=== PATIENT | male | born 1980 ===

== ENCOUNTER 2020-10-31 09:33 | Outpatient (REF) | payer OTHER, SELFPAY ==
[2020-10-31 10:50] LABS: Estimated Average Glucose 108 mg/dL; Hemoglobin A1c % 5.4 %
[2020-10-31 10:54] LABS: Alanine Aminotransferase 23 U/L (0-40); Albumin Level 4.3 g/dL (3.5-5.0); Alkaline Phosphatase 60 U/L (39-117); Anion Gap 8 (12-20); Aspartate Amino Transferase 17 U/L (5-37); Bilirubin Total 0.6 mg/dL (0.0-1.0); Blood Urea Nitrogen 15 mg/dL (9-16); Calcium 9.3 mg/dL (8.4-10.2); Carbon Dioxide 30 mmol/L (22-29); Chloride 108 mmol/L (96-108); Cholesterol 168 mg/dL; Estimated Glomerular Filt Rate > 60; Glucose Fasting 87 mg/dL (60-99); HDL Cholesterol 48 mg/dL; LDL Cholesterol Calculated 110 mg/dl; Potassium 4.3 mmol/L (3.3-5.1); Sodium 142 mmol/L (135-145); Total Protein 6.5 g/dL (6.5-8.0); Triglycerides 54 mg/dL
[2020-10-31 11:16] LABS: TSH reflex Free T4 0.67 uIU/mL (0.32-4.0); Vitamin D 25-OH Total 24.2 ng/mL (>30)
== END 2020-10-31 09:34 | disposition home or self-care (01) ==
LOC: HO.LAB 09:33
PROVIDERS: PCP Physician Assistant; Visit Provider Physician Assistant
DX: Z13.220 Encounter for screening for lipoid disorders (principal); Z13.29 Encounter for screening for other suspected endocrine disorder; E55.9 Vitamin D deficiency, unspecified
CPT/HCPCS: 36415; 80053; 80061; 82306; 83036; 84443

== ENCOUNTER 2021-11-05 08:41 | Outpatient (REF) | payer OTHER, SELFPAY ==
[2021-11-05 09:13] LABS: Hematocrit 41.6 % (42.0-52.0); Hemoglobin 13.3 g/dl (14.0-18.0); Mean Corpuscular Hemoglobin 24.2 pg (27.0-33.0); Mean Corpuscular Volume 75.8 fL (80.0-98.0); Mean Platelet Volume 9.2 fL (9.4-12.4); Platelet Count 269 X10*3/uL (160-400); Red Blood Count 5.49 X10*6/uL (4.60-5.80); Red Cell Distribution Width 14.6 % (11.0-16.0)
[2021-11-05 09:40] LABS: Alanine Aminotransferase 24 U/L (0-40); Albumin Level 4.3 g/dL (3.5-5.0); Alkaline Phosphatase 65 U/L (39-117); Anion Gap 13 (12-20); Aspartate Amino Transferase 20 U/L (5-37); Bilirubin Total 0.4 mg/dL (0.0-1.0); Blood Urea Nitrogen 16 mg/dL (9-16); Calcium 9.2 mg/dL (8.4-10.2); Carbon Dioxide 29 mmol/L (22-29); Chloride 105 mmol/L (96-108); Cholesterol 167 mg/dL; Estimated Glomerular Filt Rate > 60; Glucose Fasting 88 mg/dL (60-99); HDL Cholesterol 54 mg/dL; LDL Cholesterol Calculated 101 mg/dl; Potassium 4.7 mmol/L (3.3-5.1); Sodium 142 mmol/L (135-145); Total Protein 6.6 g/dL (6.5-8.0); Triglycerides 62 mg/dL
[2021-11-05 10:03] LABS: TSH reflex Free T4 0.55 uIU/mL (0.32-4.0)
== END 2021-11-05 08:42 | disposition home or self-care (01) ==
LOC: HO.LAB 08:41
PROVIDERS: PCP Physician Assistant; Visit Provider Physician Assistant
DX: Z13.220 Encounter for screening for lipoid disorders (principal); Z13.29 Encounter for screening for other suspected endocrine disorder
CPT/HCPCS: 36415; 80053; 80061; 84443; 85027

== ENCOUNTER 2023-03-10 07:50 | Outpatient (AMB) | payer OTHER, SELFPAY ==
[2023-03-10 07:58] VITALS: BP 130/78; PULSE 64; O2SAT 98; BMI 26.8
--- NOTE | 2023-03-10 07:58 | A.OFFPC_ITS ---
Vital Signs 03/10/23 07:58 Height 5 ft 11 in Weight 192 lb BMI 26.8 BP 130/78 Blood Pressure Location Lt brachial Position Sitting Pulse 64 Pulse Source Pulse Oximeter Pulse Oximetry (%) 98 Oxygen Delivery Method Room Air Intake Visit Reasons: Annual Exam, Chest Pain, PT lower pain back , feet swelling, right knee pain Allergies No Known Allergies [No Known Allergies*] Allergy (Verified 03/10/23 08:07) N.K.D.A. Allergy (Unknown, Uncoded 03/10/23 07:58) Unknown Medication List - Last Reconciled 03/10/23 by Dean Willis PA-C cetirizine 10 mg PO DAILY 60 days clonidine HCl 0.1 mg PO DAILY cyclobenzaprine 5 mg PO Q12H PRN ferrous gluconate 236 mg PO 3XW 4 weeks naproxen 250 mg PO BID tramadol 50 mg PO DAILY 7 days Tobacco use date assessed: 03/10/23 Dental Screening Dental Screen Date: 03/10/23 Did you have a dental visit in the last 12 months?: Yes Did you have a dental problem in the last 6 months where you did not have access to dental care?: No Was dental information given to patient?: Patient has dentist HPI Annual Exam HPI Details Patient is a 42-year-old male here today for annual physical. Patient has a past medical history significant for generalized anxiety disorder, nephrolithiasis. Concerns---> reports having chest pain as of late related to stress. Chest pains only last for a few minutes and then relief. Denies any chest pain shortness for breath on exertion.. He does report having elevated blood pressure readings as of late and has restarted taking clonidine which has helped though does not. Like side effect of the medication. PLAN: Will start low-dose lisinopril for better blood pressure control FERN:? Has been using Clonidine 0.1 mg on a p.r.n. basis with good effect of reducing his anxiety.? City is triggered by family issues.. He is interested in cognitive behavioral therapy . Lumbar disc disease: He is status post lumbar disc surgery in 2006. He co ntinues to have lower lumbar spine pain to which he uses tramadol and or cyclobenzaprine on an as needed basis. .. Renal colic:? He reports passing a kidney stone in his flank pain has resolved Colonoscopy:? Done March 2020 polyp found ( Tubular adenoma) Repeat 5 years. - family history of Colon cancer. Vaccines:? Up-to-date with COVID vaccine, up-to-date with tetanus vaccine?, con sidering flu vaccine. [facility] Surgical History (Updated 03/10/23 @ 08:20 by Dean Willis PA-C) History of lumbar surgery Family History (Updated 03/10/23 @ 08:11 by Dean Willis PA-C) Father Colon cancer, Onset Age: 47 CAD (coronary artery disease), Onset Age: 55 Mother Ovarian cancer Social History (Updated 03/10/23 @ 08:12 by Dean Willis PA-C) Housing: House Alcohol intake: current Patient Tobacco Use Status: Never used Tobacco e-Cigarette/Vaping Use: Never Used Second Hand Smoke Exposure: No service: No Current occupational status: employed Current occupation: [employer] Current occupational exposures/hazards: No Cognitive needs: No Hearing needs: No Vision needs: No Questionnaire PHQ-9 Over the last 2 weeks, how often have you been bothered by any of the following problems? 1. Little interest or pleasure in doing things: not at all 2. Feeling down, depressed, or hopeless: not at all 3. Trouble falling or staying asleep, or sleeping too much: not at all 4. Feeling tired or having little energy: not at all 5. Poor appetite or overeating: not at all 6. Feeling bad about yourself - or that you are a failure or have let yourself or your family down: not at all 7. Trouble concentrating on things, such as reading the newspaper or watching television: not at all 8. Moving or speaking so slowly that other people could have noticed. Or the opposite - being so fidgety or restless that you have been moving around a lot more than usual: not at all 9. Thoughts that you would be better off or of hurting yourself in some way: not at all Total score: 0 Depression Screening Interpretation: Negative Depression Screening Done: Yes Source: Developed by Drs. Alejandro Joseph, Krystina Askew, Lopez Ellison and colleagues, with an educational jose from [employer]. Thrive Questionnaire Date Thrive assessed: 03/10/23 I am a: Patient What is your living situation today?: I have a steady place to live Within the past 12 months, did the food you bought not last and you didn't have the money to get more?: Never true Within the past 12 months, did you worry whether your food would run out before you got money to buy more?: Never true Do you have trouble paying for medicines?: No Do you have trouble getting transportation to medical appointments?: No Do you have trouble paying your heating and electricity bill?: No Do you have trouble taking care of your child, family member or friend?: No Do you have trouble with day-to-day activities such as bathing, preparing meals, shopping, managing finances, etc.?: No Are you currently unemployed and looking for a job?: No Are you interested in more education?: No Currently or been in a relationship where the following occur: no concerns reported THRIVE Score: 0 AUDIT C Alcohol Use Questionnaire (AUDIT-C) 1. How often do you have a drink containing alcohol?: 2-4 times a month 2. How many drinks containing alcohol do you have on a typical day when you are drinking?: 3 or 4 3. How often do you have six or more drinks on one occasion?: Never Total Score: 3 FERN-7 AMB Questionnaire FERN-7 Date FERN - 7 assessed: 03/10/23 Feeling nervous, anxious, or on edge: 0 = Not at all Not being able to stop or control worryin = Not at all Worrying too much about different things: 0 = Not at all Trouble relaxin = Not at all Being so restless that it is hard to sit still: 0 = Not at all Becoming easily annoyed or irritable: 0 = Not at all Feeling afraid as if something awful might happen: 0 = Not at all Total FERN-7 score (0-4 normal; 5-9 mild; 10-14 moderate; 15-21 severe): 0 Source: Developed by Drs. Alejandro Joseph, Krystina Askew, Lopez Ellison and colleagues, with an educational jose from [employer]. FERN-7 Assessment Billing FERN-7 Assessment Tool: FERN-7 Assessment 94219 Review of Systems Const Denies body aches, Denies chills, Denies excessive sweating, Denies fatigue, Denies fever(s) and Denies headache(s) Eyes Denies blurry vision ENT Denies dysphagia, Denies vertigo, Denies dizziness, Denies headache(s), Denies hearing loss and Denies tinnitus Card Denies chest pain, Denies chest pain with activity, Denies syncope, Denies irregular heart rhythm and Denies dyspnea Resp Denies chest congestion, Denies cough, Denies hemoptysis, Denies dyspnea and Denies wheezing GI Denies abdominal pain, Denies melena, Denies hematochezia, Denies coffee ground emesis, Denies dysphagia, Denies diarrhea, Denies nausea and Denies vomiting Denies difficulty urinating, Denies dysuria, Denies urinary frequency, Denies urinary hesitancy and Denies urinary urgency Musc Denies arthralgias, Denies limited range of motion, Denies muscle cramps and Denies muscle weakness Skin/Breast Denies rash and Denies skin ulcer Neuro Denies Abnormal speech present, Denies confusion, Denies vertigo, Denies dizziness, Denies syncope, Denies headache(s), Denies memory loss and Denies seizure-like activity Psych Denies anxiety, Denies confusion, Denies depression, Denies memory loss, Denies panic attacks and Denies paranoia Endo Denies excessive sweating, Denies fatigue, Denies flushing, Denies polydipsia and Denies polyuria Aller/Immun Denies wheezing Physical exam (Primary Care) Vital Signs: Last Vital Signs Pulse 64 03/10/23 07:58 BP 130/78 03/10/23 07:58 Pulse Ox 98 03/10/23 07:58 Oxygen Delivery Method Room Air 03/10/23 07:58 BMI result Body Mass Index 26.8 Tobacco/Smoking Status: Tobacco use Status Tobacco use date assessed 03/10/23 03/10/23 08:04 Patient Tobacco Use Status Never used Tobacco 03/10/23 08:12 e-Cigarette/Vaping Use Never Used 03/10/23 08:12 PHQ-9: PHQ-9 Score PHQ-9: Total score 0 03/10/23 08:17 Depression Screening Interpretation: Negative Thrive Assessment: Date of Thrive Assessment Date Thrive assessed 03/10/23 03/10/23 08:04 Currently or been in a relationship where the following occur: no concerns reported Const General: cooperative, comfortable, no acute distress, alert and awake; No confusion Orientation/consciousness: oriented to person, oriented to place, patient oriented x3 and No confusion HENMT Head: Yes normocephalic Ears: external ears normal and TM's normal bilaterally Face and sinus: No sinus tenderness Mouth: Normal oral and palatal mucosa present and tongue normal Teeth and gingiva: dentition normal and gingiva normal Throat: Yes posterior oropharynx normal, Yes tonsils normal and Yes uvula midline Eyes Conjunctivae: conjunctivae normal Sclerae: sclerae normal Pupils: Equal, round and reactive pupils present EOM: EOMs intact bilaterally Direct Ophthalmoscopy: No no photophobia Neck Neck: Yes no lymphadenopathy, No tender and Yes no JVD Thyroid: Thyroid normal Carotids: no bruits Chest Chest palpation & inspection: no tenderness Resp Effort & Inspection: normal respiratory effort, no audible wheezes, not labored and no stridor Auscultation: no crackles, no rales, no rhonchi and no wheezes Cardio Jugular venous distension: no JVD Rate: regular rate, not bradycardic and not tachycardic Rhythm: regular rhythm Bruits: no carotid bruits Peripheral pulses: Peripheral pulses 2+ throughout GI Inspection: Yes normal to inspection, No abdominal wall ecchymosis and No visible herniation Palpation (GI): Soft to palpation, nontender, no guarding, not rigid and No hepatosplenomegaly present Auscultation: normoactive bowel sounds General: Yes no CVA tenderness Back/Spine/Pelvis Back: no CVA tenderness and No back tenderness Cervical Spine: cervical ROM normal Thoracic/Lumbar Spine: thoracic and lumbar spine normal to inspection, straight leg raise negative bilaterally, No thoraco-lumbar ROM limited and No lumbar spinal tenderness Skin Lesions: no lesions Rashes: no rashes Wounds: no wounds Neuro General: oriented to person, oriented to place, patient oriented x3, CN's II-XI intact bilaterally and No confusion Cranial nerves: Yes Equal, round and reactive pupils present and Yes Normal accommodation reflex present Cognition (Neuro): normal cognition Speech: No Abnormal speech present Gait exam (Neuro): Normal gait present Motor exam (neuro): 5/5 motor strength present throughout Extrem Right upper extremity: full ROM; no cyanosis Left upper extremity: full ROM; no cyanosis Right lower extremity: no edema Left lower extremity: no edema Psych Appearance: grossly normal Mental Status: mental status grossly normal Affect: normal affect Attitude: cooperative Thought process: Normal thought process present Assessment and Plan Assessment & Plan (1) Annual physical exam: Code(s): Z00.00 - Encounter for general adult medical examination without abnormal findings (2) Renal colic: Code(s): N23 - Unspecified renal colic Plan: Has essentially resolved. He did report passing a kidney stone recently (3) FERN (generalized anxiety disorder): Code(s): F41.1 - Generalized anxiety disorder Plan: He does report his anxiety is at times not controlled. He does report his trigger to his anxiety is family issues. Has been using clonidine as of late. He is interested in starting mental health therapy. (4) GERD (gastroesophageal reflux disease): Code(s): K21.9 - Gastro-esophageal reflux disease without esophagitis Qualifiers: Esophagitis presence: without esophagitis Qualified Code(s): K21.9 - Gastro-esophageal reflux disease without esophagitis Plan: His GERD symptoms have been well managed with lifestyle modification. Does not use any PPI therapy at this time. (5) Lumbar spine pain: Code(s): M54.5 - Low back pain Plan: Has a history of lumbar disc disease and had surgery in 2006 to repair disc. He continues with chronic lower lumbar spine pain he is usually able to manage though reports as of late more lower lumbar spine pain. He is interested in starting physical therapy and getting a repeat x-ray. Will consider getting MRI if he continues to decline (6) HTN (hypertension): Code(s): I10 - Essential (primary) hypertension Qualifiers: Hypertension type: primary hypertension Qualified Code(s): I10 - Essential (primary) hypertension Plan: Blood pressure borderline high today in office. Will start lisinopril 5 mg for better blood pressure control. It seems that his blood pressure elevations are related to anxiety. Advised to monitor blood pressure at home with goal blood pressure to be below 140/90 (7) Right anterior knee pain: Code(s): M25.561 - Pain in right knee Plan: He does report having right anterior knee pain worse when going up or downstairs . Likely patellofemoral syndrome. Advised on anti-inflammatory use and cool compress. (8) Chest pain: Code(s): R07.9 - Chest pain, unspecified Qualifiers: Chest pain type: precordial pain Qualified Code(s): R07.2 - Precordial pain Plan: Will get EKG Orders: Orders PT Evaluation and Treatment Today M51.9 - Unspecified thoracic, thoracolumbar and lumbosacral intervertebral disc disorder, M54.5 - Low back pain Comprehensive [place]. Panel Fast Today Z13.1 - Encounter for screening for diabetes mellitus Complete Blood Count no Diff Today D64.9 - Anemia, unspecified XR knee RT 3V Today M25.561 - Pain in right knee XR lumbar spine 2-3V Today M54.5 - Low back pain Microalbumin, Random (w Creat) Today I10 - Essential (primary) hypertension ECG 12 lead EKG Today R07.2 - Precordial pain Referrals Counseling Referral F41.1 - Generalized anxiety disorder Medications: New lisinopril 5 mg PO DAILY 30 days 30 tabs 1RF I10 - Essential (primary) hypertension Refilled tramadol 50 mg PO DAILY 7 days 7 tabs 0RF N23 - Unspecified renal colic cyclobenzaprine 5 mg PO Q12H PRN 10 tabs 0RF muscle spasm M54.5 - Low back pain naproxen 250 mg PO BID 30 tabs 3RF Coding Level of Care Code Est Pt Prev Care 40-64y(42320) Diagnoses Annual physical exam Z00.00 Renal colic N23 FERN (generalized anxiety disorder) F41.1 Gastroesophageal reflux disease without esophagitis K21.9 Esophagitis presence: without esophagitis Lumbar spine pain M54.5 Primary hypertension I10 Hypertension type: primary hypertension Right anterior knee pain M25.561 Precordial pain R07.2 Chest pain type: precordial pain Additional Codes FERN-7 Assessment Billing - FERN-7 Assessment Tool: FERN-7 Assessment [id number] ([id number])
== END 2023-03-10 08:39 | disposition home or self-care (01) ==
PROVIDERS: PCP Physician Assistant; Visit Provider Physician Assistant
DX: Z00.00 Encounter for general adult medical examination without abnormal findings (principal); N23 Unspecified renal colic; F41.1 Generalized anxiety disorder; K21.9 Gastro-esophageal reflux disease without esophagitis; M54.50 Low back pain, unspecified; I10 Essential (primary) hypertension; M25.561 Pain in right knee; R07.2 Precordial pain
CPT/HCPCS: 99396

== ENCOUNTER 2023-03-10 08:43 | Outpatient (REF) | payer OTHER, SELFPAY ==
--- NOTE | ~2023-03-10 | XR_ITS ---
EXAMINATION: XR LUMBAR SPINE XR KNEE, RIGHT CLINICAL INFORMATION: Pain in right knee, low back pain. COMPARISON: None available. TECHNIQUE: 3 views of the lumbar spine. 3 views of the right knee. FINDINGS: Right knee: No significant joint effusion. Mild medial joint space narrowing. Tiny tricompartmental osteophytes. Lumbar spine: Straightening of the normal lumbar lordosis. Multiple rounded pelvic calcifications are likely vascular. Advanced facet arthritis at L4-L5 and L5-S1. Multilevel lumbar spondylosis with moderate loss of disc space height at L4-L5. Grade 1 retrolisthesis of L4 on L5. Advanced degenerative changes with marked loss of disc space height at L5-S1 and abundant subchondral sclerosis. Small multilevel superior and inferior endplate concavities in scattered lumbar vertebral bodies, characteristic of Schmorl's nodes. Mild anterior loss of height of L2 vertebral body of indeterminate age and etiology. XR/XR lumbar spine 2-3V IMPRESSION: 1. Mild degenerative changes in the right knee. 2. Multilevel degenerative changes in the lumbar spine most notable at L4-L5 and L5-S1. 3. Advanced facet arthritis at L4-L5 and L5-S1. Mild anterior loss of height of L2 vertebral body of indeterminate age and etiology. Correlation with clinical history as well as direct correlation with prior images is recommended and if prior images are provided, an addendum will be dictated.
--- NOTE | ~2023-03-10 | XR_ITS ---
EXAMINATION: XR LUMBAR SPINE XR KNEE, RIGHT CLINICAL INFORMATION: Pain in right knee, low back pain. COMPARISON: None available. TECHNIQUE: 3 views of the lumbar spine. 3 views of the right knee. FINDINGS: Right knee: No significant joint effusion. Mild medial joint space narrowing. Tiny tricompartmental osteophytes. Lumbar spine: Straightening of the normal lumbar lordosis. Multiple rounded pelvic calcifications are likely vascular. Advanced facet arthritis at L4-L5 and L5-S1. Multilevel lumbar spondylosis with moderate loss of disc space height at L4-L5. Grade 1 retrolisthesis of L4 on L5. Advanced degenerative changes with marked loss of disc space height at L5-S1 and abundant subchondral sclerosis. Small multilevel superior and inferior endplate concavities in scattered lumbar vertebral bodies, characteristic of Schmorl's nodes. Mild anterior loss of height of L2 vertebral body of indeterminate age and etiology. XR/XR knee RT 3V IMPRESSION: 1. Mild degenerative changes in the right knee. 2. Multilevel degenerative changes in the lumbar spine most notable at L4-L5 and L5-S1. 3. Advanced facet arthritis at L4-L5 and L5-S1. Mild anterior loss of height of L2 vertebral body of indeterminate age and etiology. Correlation with clinical history as well as direct correlation with prior images is recommended and if prior images are provided, an addendum will be dictated.
--- NOTE | 2023-03-10 08:50 | ECG_ITS ---
Test Reason : pre cordial pain Blood Pressure : / mmHG Vent. Rate : 061 BPM Atrial Rate : 061 BPM P-R Int : 136 ms QRS Dur : 088 ms QT Int : 394 ms P-R-T Axes : 035 058 034 degrees QTc Int : 396 ms Normal sinus rhythm Normal ECG When compared with ECG of 07-MAR-2015 12:58, Sinus rhythm has replaced Ectopic atrial rhythm Referred By: Dean Willis Electronically Signed By:JAMAAL MCCOLLUM MD
[2023-03-10 09:50] LABS: Hematocrit 42.3 % (42.0-52.0); Hemoglobin 13.5 g/dl (14.0-18.0); Mean Corpuscular HGB Conc 31.9 g/dl (31.0-36.0); Mean Corpuscular Hemoglobin 24.2 pg (27.0-33.0); Mean Corpuscular Volume 75.9 fL (80.0-98.0); Mean Platelet Volume 9.9 fL (9.4-12.4); Platelet Count 292 X10*3/uL (160-400); Red Blood Count 5.57 X10*6/uL (4.60-5.80); Red Cell Distribution Width 14.8 % (11.0-16.0); White Blood Count 6.1 X10*3/uL (4.8-10.8)
[2023-03-10 10:15] LABS: Alanine Aminotransferase 30 U/L (0-40); Albumin Level 4.4 g/dL (3.5-5.0); Alkaline Phosphatase 64 U/L (39-117); Anion Gap 13 (12-20); Aspartate Amino Transferase 22 U/L (5-37); Bilirubin Total 0.3 mg/dL (0.0-1.0); Blood Urea Nitrogen 16 mg/dL (9-16); Calcium 9.5 mg/dL (8.4-10.2); Carbon Dioxide 30 mmol/L (22-29); Chloride 104 mmol/L (96-108); Estimated Glomerular Filt Rate > 60; Glucose Fasting 93 mg/dL (60-99); Potassium 4.2 mmol/L (3.3-5.1); Sodium 143 mmol/L (135-145)
== END 2023-03-10 08:44 | disposition home or self-care (01) ==
LOC: HO.LAB 08:43
PROVIDERS: PCP Physician Assistant; Visit Provider Physician Assistant
DX: Z13.1 Encounter for screening for diabetes mellitus (principal); R07.2 Precordial pain; D64.9 Anemia, unspecified; M25.561 Pain in right knee; M54.50 Low back pain, unspecified
CPT/HCPCS: 36415; 72100; 73562; 80053; 85027; 93005

== ENCOUNTER → 2023-03-10 08:50 | Outpatient (BNV) | payer OTHER, SELFPAY | PROVIDERS: PCP Physician Assistant; Visit Provider Internal Medicine Cardiovascular Disease | DX: R07.2 Precordial pain (principal) | CPT/HCPCS: 93010 ==

== ENCOUNTER 2023-04-02 08:22 | Outpatient (AMB) | payer OTHER, SELFPAY ==
--- NOTE | 2023-04-02 08:36 | A.OFFVIS_ITS ---
Intake Vital Signs 04/02/23 08:37 Height 5 ft 8 in Weight 188 lb 8 oz BMI 28.7 BP 137/75 Blood Pressure Location Lt brachial Position Sitting Respiration 18 Pulse 69 Pulse Source Pulse Oximeter Pulse Oximetry (%) 100 Oxygen Delivery Method Room Air Intake Visit Reasons: Low Back Pain, Unspecified - Confirmed Allergies No Known Allergies [No Known Allergies*] Allergy (Verified 04/02/23 08:28) N.K.D.A. Allergy (Unknown, Uncoded 03/10/23 07:58) Unknown HPI HPI Comments History of Present Illness Details Chilo is a very pleasant 42-year-old male who presents the office today for evaluation management of his chronic lower back pain. He has been suffering with this pain for greater than 15 years. Status post partial discectomy in 2006 after he injured his back falling during a recreati onal football game. Prior to that he had been active in basketball and pain was present before the football injury but became significantly worse after the fall. He was evaluated at that time in the emergency room and ultimately underwent surgery. He does endorse burning pain, numbness and tingling down the right leg to include the right foot. Initially it was more in the foot but has been progressively getting worse over the years. He states that this started prior to surgery and persisted after. At one point he was started on Lyrica but had side effects so he stopped taking it. For 2 years after surgery he was seen in pain management and underwent multiple injections but found that they did not provide him benefit so he worked more on lifestyle modifications. Patient denies red flag symptoms including new loss of bowel, bladder or saddle anesthesia. Recent xray, results as per below. He has not had recent MRI, last one was greater than 10 years ago. Pain today is rated as an 8/10, across the lower back and down the right leg. Pain is constant, worse with weather changes and movement. In terms of muscle damage condition is described as pulsing, throbbing, pounding, jumping, flushing, shooting, stabbing, sharp, cutting, tingling, burning, scalding, dull, sore, hurting, aching, heavy, tight, squeezing. Pain is negatively impacting patient's enjoyment of life, ability to perform activities of daily living, ability to function normally. After surgery he completed physical therapy with no improvement of his symptoms. Patient is interested in retrying physical therapy, he was expecting a call after recent PCP visit but states that physical therapy has not reached out to him to schedule appointment. He has been doing home exercise program but reports that the stretching has been getting increasingly more difficult over the last year. Patient has been using [id number] lidocaine patches and nonsteroidal anti- inflammatory medications with some relief. When pain is severe he has tramadol and cyclobenzaprine but uses those very rarely. He has also changed his lifestyle and improved his diet and physical activity but pain persists. [facility] Surgical History (Updated 03/10/23 @ 08:20 by Dean Willis PA-C) History of lumbar surgery Family History (Updated 03/10/23 @ 08:11 by Dean Willis PA-C) Father Colon cancer, Onset Age: 47 CAD (coronary artery disease), Onset Age: 55 Mother Ovarian cancer Social History (Updated 03/10/23 @ 08:12 by Dean Willis PA-C) Housing: House Alcohol intake: current Patient Tobacco Use Status: Never used Tobacco e-Cigarette/Vaping Use: Never Used Second Hand Smoke Exposure: No service: No Current occupational status: employed Current occupation: [employer] Current occupational exposures/hazards: No Cognitive needs: No Hearing needs: No Vision needs: No Review of Systems Const All systems reviewed & are unremarkable except as noted in HPI and below Physical Exam Vital Signs: Last Vital Signs Pulse 69 04/02/23 08:37 Resp 18 04/02/23 08:37 BP 137/75 04/02/23 08:37 Pulse Ox 100 04/02/23 08:37 Oxygen Delivery Method Room Air 04/02/23 08:37 BMI result Body Mass Index 28.7 General: awake, alert, oriented. Answers questions appropriately. Fully engaged in examination. Skin: warm, dry, intact HEENT: Normocephalic. Hearing intact. Cardiac: External chest normal in appearance. Respiratory: No cough, audible wheezing or stridor. Abdomen: without gross distension. MS: No obvious swelling or deformities. Able to transition from sit to stand unassisted. Ambulates with bilaterally normal heel strike and toe off Forward flexion to 60 degrees, extension to 15 degrees. SLR with and without dorsiflexion positive bilaterally. Worse on the right AMARI negative bilaterally Bilateral lower extremity strength 5/5 Nontender over lumbar paraspinal muscles minimally tender over midline lumbar vertebrae Nontender over bilateral PSIS Neurological: Oriented to person, place, time and situation. Thought process intact. No gait abnormalities appreciated. Psychiatric: Appropriate mood and affect. Good judgment and insight. Results Reviewed Results Reviewed: 03/10/23 XR Lumbar Spine Lumbar spine: Straightening of the normal lumbar lordosis. Multiple rounded pelvic calcifications are likely vascular. Advanced facet arthritis at L4-L5 and L5-S1. Multilevel lumbar spondylosis with moderate loss of disc space height at L4-L5. Grade 1 retrolisthesis of L4 on L5. Advanced degenerative changes with marked loss of disc space height at L5-S1 and abundant subchondral sclerosis. Small multilevel superior and inferior endplate concavities in scattered lumbar vertebral bodies, characteristic of Schmorl's nodes. Mild anterior loss of height of L2 vertebral body of indeterminate age and etiology. IMPRESSION: 1. Mild degenerative changes in the right knee. 2. Multilevel degenerative changes in the lumbar spine most notable at L4-L5 and L5-S1. 3. Advanced facet arthritis at L4-L5 and L5-S1. Mild anterior loss of height of L2 vertebral body of indeterminate age and etiology. Correlation with clinical history as well as direct correlation with prior images is recommended and if prior images are provided, an addendum will be dictated. Assessment & Plan Assessment & Plan (1) Neuropathy: Code(s): G62.9 - Polyneuropathy, unspecified (2) Lumbar radiculopathy: Code(s): M54.16 - Radiculopathy, lumbar region (3) Post laminectomy syndrome: Comment: partial discectomy 2006 Code(s): M96.1 - Postlaminectomy syndrome, not elsewhere classified (4) Lumbar facet arthropathy: Code(s): M47.816 - Spondylosis without myelopathy or radiculopathy, lumbar region Marquise Woo is a very pleasant 42-year-old male who presented to the office today for evaluation and management of his chronic lower back pain. History, physical exam and provocative testing consistent with lumbar facet arthropathy and lumbar radiculopathy. EMG ordered for evaluation of his right lower extremity neuropathy MRI lumbar spine ordered further evaluation. Patient with worsening lower back pain, lumbar radiculopathy, post-laminectomy syndrome and reported worsening neuropathy of the right lower extremity. Order placed for PT eval and treat Patient has exhausted conservative therapy including topical lidocaine patches, nonsteroidal anti-inflammatory medications, muscle relaxers, prescription opioids, physical therapy, home exercise program and previous steroid injections. Discussed options for treatment including diagnostic interventional testing, epidural steroid injections, peripheral nerve stimulation with Sprint, RFA and more permanent neuromodulation. Informational pamphlets provided. Patient will follow up here after MRI/EMG. He was given pamphlets for Nevro spinal cord stimulator and Sprint peripheral nerve stimulator. We also discussed radiofrequency ablation. Will formulate treatment plan after review of MRI, he was advised that spinal cord stimulator may be his best option for long-term treatment of his pain and neuropathy but we could trial diagnostic lumbar medial branch blocks followed by Sprint/RFA if he is not ready to commit to more permanent neuromodulation. All questions and concerns have been answered and patient agrees with the plan. Follow up after MRI/EMG, sooner if needed. Orders: Orders NE electromyogram (EMG) Today G62.9 - Polyneuropathy, unspecified PT Evaluation and Treatment Today M47.816 - Spondylosis without myelopathy or radiculopathy, lumbar region, M96.1 - Postlaminectomy syndrome, not elsewhere classified MR lumbar spine wo con Today G62.9 - Polyneuropathy, unspecified, M54.16 - Radiculopathy, lumbar region, M96.1 - Postlaminectomy syndrome, not elsewhere classified Coding Level of Care Code New Pt Level 4 (30474) Diagnoses Neuropathy G62.9 Lumbar radiculopathy M54.16 Post laminectomy syndrome M96.1 Lumbar facet arthropathy M47.816
[2023-04-02 08:37] VITALS: BP 137/75; PULSE 69; RESP 18; O2SAT 100; BMI 28.7
== END 2023-04-02 08:59 | disposition home or self-care (01) ==
PROVIDERS: PCP Physician Assistant; Visit Provider Registered Nurse Emergency
DX: G62.9 Polyneuropathy, unspecified (principal); M54.16 Radiculopathy, lumbar region; M96.1 Postlaminectomy syndrome, not elsewhere classified; M47.816 Spondylosis without myelopathy or radiculopathy, lumbar region
CPT/HCPCS: 99204

== ENCOUNTER → 2023-04-02 08:22 | Outpatient (BNVA) | payer OTHER, SELFPAY | PROVIDERS: PCP Physician Assistant; Visit Provider Registered Nurse Emergency ==

== ENCOUNTER 2023-04-08 16:45 | Outpatient (REF) | payer OTHER, SELFPAY ==
--- NOTE | ~2023-04-08 | XR_ITS ---
EXAMINATION: XR HAND/WRIST, RIGHT CLINICAL INFORMATION: Pain. COMPARISON: None TECHNIQUE: Four views of the right hand and wrist. FINDINGS: Subtle cortical irregularity with vertically oriented lucency along the radial surface of the base of the distal fourth phalanx, suspicious for underlying nondisplaced fracture. Nonaggressive appearing 0.7 cm lucent lesion in the distal phalanx of the second digit, possibly representing a bone cyst/ganglion cyst. Otherwise normal appearance of the bones and soft tissues. No significant degenerative changes. No unexpected radiopaque foreign bodies. XR/XR hand wrist RT IMPRESSION: Suspect nondisplaced fracture of the base of the distal fourth phalanx. Correlate for point tenderness.
== END 2023-04-08 16:46 | disposition home or self-care (01) ==
LOC: HO.XRAY 16:45
PROVIDERS: PCP Physician Assistant; Visit Provider Physician Assistant
DX: M25.531 Pain in right wrist (principal); M79.641 Pain in right hand
CPT/HCPCS: 73110; 73130

== ENCOUNTER 2023-04-10 09:39 | Outpatient (REF) | payer OTHER, SELFPAY ==
[2023-04-10 11:58] LABS: C Reactive Protein 0.11 mg/dL (< or = 0.50)
[2023-04-10 12:03] LABS: Erythrocyte Sedimentation Rate 4 MM/HR (0-15)
[2023-04-10 12:11] LABS: Uric Acid 7.2 mg/dL (3.4-7.0)
[2023-04-14 13:33] LABS: SM/Ribonucleoprotein Ab <1.0 NEG AI (<1.0 NEG); Smith Protein <1.0 NEG AI (<1.0 NEG)
[2023-04-14 13:44] LABS: IgA 148 mg/dL (47-310); IgG 989 mg/dL (600-1640); IgM 54 mg/dL (50-300)
[2023-04-15 15:08] LABS: HLA B27 Negative (Negative)
[2023-04-17 13:18] LABS: Aldolase 4.8 U/L (<=8.1)
[2023-04-17 15:04] LABS: Anti Nuclear Antibody Screen NEGATIVE (NEGATIVE)
== END 2023-04-10 09:40 | disposition home or self-care (01) ==
LOC: HO.LAB 09:39
PROVIDERS: PCP Physician Assistant; Visit Provider Nurse Practitioner Family
DX: M54.41 Lumbago with sciatica, right side (principal); G89.29 Other chronic pain; M79.641 Pain in right hand; M25.531 Pain in right wrist
CPT/HCPCS: 36415; 82085; 82550; 82784; 84550; 85652; 86038; 86140; 86235; 86812

== ENCOUNTER 2023-04-10 09:39 | Outpatient (AMB) | payer OTHER, SELFPAY ==
--- NOTE | 2023-04-10 09:41 | A.OFFVIS_ITS ---
Intake Vital Signs 04/10/23 09:43 Height 5 ft 8 in Weight 190 lb 4.143 oz BMI 28.9 BP 98/60 Blood Pressure Location Rt brachial Position Sitting Pulse 58 Pulse Source Pulse Oximeter Temp 97 F Temp Source Skin Pulse Oximetry (%) 98 Oxygen Delivery Method Room Air Intake Visit Reasons: Pain in right knee Intake Note: New patient, internally referred, presents to office today for right knee pain. Pain began approx: back- years, knee- 1 month Has tried: Pain meds Reports will be starting PT next week. Has MRI scheduled. Mohs Surgeon Required: No Accompanied by: Self / Same As Patient Allergies No Known Allergies [No Known Allergies*] Allergy (Verified 04/10/23 09:47) N.K.D.A. Allergy (Unknown, Uncoded 04/10/23 09:47) Unknown HPI HPI Comments History of Present Illness Details Mr. Woo 42-year-old male here on referral by his PCP for evaluation of low back pain and right knee pain. Has a long history of low back pain, since early adulthood. He has had lumbar surgery for fractured vertebrae days. He has a history of corticosteroids injection and physical therapy. He has on a regimen of tramadol p.r.n., naproxen, cyclobenzaprine p.r.n. and lidocaine 5% patches. This makes the lower back pain fairly manageable. With the low back pain there is osteoarthritis proven by x-rays and he has an MRI scheduled for April 20. He also describes numbness down his right leg and has an EMG study scheduled for early April. In recent times he has been experiencing right knee pain specifically when climbing stairs. He has possibly injured his right wrist from punching a gym bag without using boxing gloves. His PCP has ordered an x- ray and he just had that done. He endorses that his fingers turn white when his hands get cold. The patient denies psoriasis and other rashes, uveitis, tendinitis, Achilles tendonitis, plantar fasciitis. He denies other signs and symptoms of connective tissue disease and inflammatory processes to include but not limited to mouth or nare sores, chronic fatigue, red warm and swollen joints. He does not have abdominal concerns for chronic diarrhea, blood or mucus in the stool. He denies urinary concerns. [facility] Medical History (Updated 04/10/23 @ 13:29 by CEE Juarez-EDD) Right shoulder pain Chronic lower back pain Surgical History History of lumbar surgery Family History (Updated 04/10/23 @ 09:48 by DAVID Thomas) Father Colon cancer, Onset Age: 47 CAD (coronary artery disease), Onset Age: 55 Mother Ovarian cancer Sister Arthritis Social History (Updated 04/10/23 @ 09:47 by DAVID Thomas) Housing: House Alcohol intake: current Alcohol intake frequency: holidays/special occasions only Patient Tobacco Use Status: Never used Tobacco e-Cigarette/Vaping Use: Never Used Second Hand Smoke Exposure: No service: No Current occupational status: employed Current occupation: [employer] - [place]- remote from home Current occupational exposures/hazards: No Cognitive needs: No Hearing needs: No Vision needs: No Review of Systems Const All systems reviewed & are unremarkable except as noted in HPI and below Physical Exam Vital Signs: Last Vital Signs Temp 97 F 04/10/23 09:43 Pulse 58 04/10/23 09:43 BP 98/60 04/10/23 09:43 Pulse Ox 98 04/10/23 09:43 Oxygen Delivery Method Room Air 04/10/23 09:43 BMI result Body Mass Index 28.9 APPEARANCE: Patient in no acute distress, groomed and nourished EYES no redness, normal. EARS:? External ear normal. NOSE/SINUS:? Airflow through both nares, no nasal discharge, no bleeding THROAT:? Oral mucosa moist, no ulcerations NECK:? No thyromegaly or masses, no adenopathy, trachea midline. HEART:? Regular rhythm, S1-S2 heard, no murmurs, rubs or gallops. LUNG:? Clear to percussion and auscultation EXTREMITIES:? No edema, no calf tenderness, normal peripheral pulses. NEURO:? Oriented and alert x3.? No focal weakness.? Reflexes symmetric.? Gait normal. SKIN:? There are no skin lesions evident. No objective signs of Raynaud's phenomenon. JOINT EXAM: Cervical Spine:.? Full range of motion without pain; no tenderness. Thoracic Spine:.? No scoliosis.? No tenderness on palpation. Lumbar Spine:.? Alignment normal.? Full range of motion with some pain and stiffness with tenderness to lumbar. Chest Wall:.? No tenderness, swelling, increased warmth or erythema. Hands:.? Normal pain-free range of motion without tenderness, swelling, i ncreased warmth or erythema. Able to make a full fist and has a good compensation business partner strength. Right: Pain with making a fist. Tenderness to 2nd and 3rd MCP and 2nd PIP Wrists:.? Left: Normal pain-free range of motion without tenderness, swelling, increased warmth or erythema. Right: Tenderness with limited range of motion. No warmth, swelling, or erythema. Elbows:. Normal pain-free range of motion without tenderness, swelling, increased warmth or erythema. Shoulders:.?? Left: Full range of motion without pain. No tenderness, weakness, swelling, increased warmth or erythema. Right: Full range of motion with pain at the glenohumeral joint. This just started this morning during the visit. Tenderness but no weakness, swelling, increased warmth or erythema. Hips:.? Full range of motion without pain. Hip bursa:.? No tenderness. Knees:.?? Left: Normal pain-free range of motion without tenderness, swelling, increased warmth or erythema.? There is no effusion or crepitation. Same for the right except tenderness at pes anserine bursa medially Ankles:.? Normal pain-free range of motion without tenderness, swelling, increased warmth or erythema. Feet:.? Normal pain-free range of motion without tenderness, swelling, increased warmth or erythema. Tender points:? No tenderness to digital palpation at the occiput, trapezius, second rib, lateral epicondyle, knees, greater trochanter and gluteal area bilaterally. ? Results Reviewed Results Reviewed: Laboratory Tests 03/10/23 09:08 WBC 6.1 RBC 5.57 Hgb 13.5 L Hct 42.3 AST 22 ALT 30 Alkaline Phosphatase 64 EXAMINATION: XR LUMBAR SPINE XR KNEE, RIGHT CLINICAL INFORMATION: Pain in right knee, low back pain. COMPARISON: None available. TECHNIQUE: 3 views of the lumbar spine. 3 views of the right knee. FINDINGS: Right knee: No significant joint effusion. Mild medial joint space narrowing. Tiny tricompartmental osteophytes. Lumbar spine: Straightening of the normal lumbar lordosis. Multiple rounded pelvic calcifications are likely vascular. Advanced facet arthritis at L4-L5 and L5-S1. Multilevel lumbar spondylosis with moderate loss of disc space height at L4-L5. Grade 1 retrolisthesis of L4 on L5. Advanced degenerative changes with marked loss of disc space height at L5-S1 and abundant subchondral sclerosis. Small multilevel superior and inferior endplate concavities in scattered lumbar vertebral bodies, characteristic of Schmorl's nodes. Mild anterior loss of height of L2 vertebral body of indeterminate age and etiology. XR/XR lumbar spine 2-3V IMPRESSION: 1. Mild degenerative changes in the right knee. 2. Multilevel degenerative changes in the lumbar spine most notable at L4-L5 and L5-S1. 3. Advanced facet arthritis at L4-L5 and L5-S1. Mild anterior loss of height of L2 vertebral body of indeterminate age and etiology. Correlation with clinical history as well as direct correlation with prior images is recommended and if prior images are provided, an addendum will be dictated. Assessment & Plan Assessment & Plan (1) Chronic lower back pain: Code(s): M54.50 - Low back pain, unspecified; G89.29 - Other chronic pain Qualifiers: Back pain laterality: bilateral Sciatica presence: with sciatica Sciatica laterality: sciatica of right side Qualified Code(s): M54.41 - Lumbago with sciatica, right side; G89.29 - Other chronic pain (2) Right hand pain: Code(s): M79.641 - Pain in right hand (3) Right wrist pain: Code(s): M25.531 - Pain in right wrist Plan #Back pain/hand/wrist: Mr. Mcgill presents today for evaluation of lower back pain and right knee pain. The patient shares that he has not as active as he used to be before because of the pain. Patient states he has had back pain since his early adulthood where he is felt tenderness and stiffness but has just always dealt with it. It can be reasonable to assume that it is possible he has inflammatory back pain given age of onset, and the severity of the osteoarthritis. However he denies additional features including uveitis, psoriasis, dactylitis, Crohn's, ulcerative colitis, and tenderness, swelling, warmth to other joint. He currently has pain to his right wrist but I think that is because of the injury which also causes the tenderness to his right MCP and PIP joints. The patient states the knee pain is brought on by movements such as climbing stairs. He denies warmth or swelling to the knee. I think this is likely osteoarthritis and may also be related to the radiculopathy. At this time I do not see inflammatory causes for his pain which is likely from mechanical causes. Nonetheless I will evaluate further with additional labs to ascertain for inflammation or associated antigens such as HLA B27. Patient has an lumbar MRI scheduled for May 04 that will give additional information and identify any features of inflammation Return to clinic in 1 month 40 minutes was spent reviewing chart, evaluating and examining patient and documenting Orders: Orders Uric Acid Today G89.29 - Other chronic pain, M25.531 - Pain in right wrist, M54.50 - Low back pain, unspecified, M79.641 - Pain in right hand HLA B27 Today G89.29 - Other chronic pain, M25.531 - Pain in right wrist, M54.50 - Low back pain, unspecified, M79.641 - Pain in right hand Aldolase Today G89.29 - Other chronic pain, M25.531 - Pain in right wrist, M54.50 - Low back pain, unspecified, M79.641 - Pain in right hand EULALIA Reflex Titer and Pattern Today G89.29 - Other chronic pain, M25.531 - Pain in right wrist, M54.50 - Low back pain, unspecified, M79.641 - Pain in right hand Anti Extractable Nuclear Ag Today G89.29 - Other chronic pain, M25.531 - Pain in right wrist, M54.50 - Low back pain, unspecified, M79.641 - Pain in right hand Erythrocyte Sedimentation Rate Today G89.29 - Other chronic pain, M25.531 - Pain in right wrist, M54.50 - Low back pain, unspecified, M79.641 - Pain in right hand C Reactive Protein Today G89.29 - Other chronic pain, M25.531 - Pain in right wrist, M54.50 - Low back pain, unspecified, M79.641 - Pain in right hand Creatine Kinase Total Today G89.29 - Other chronic pain, M25.531 - Pain in right wrist, M54.50 - Low back pain, unspecified, M79.641 - Pain in right hand Immunoglobulins,IgG IgA IgM Today G89.29 - Other chronic pain, M25.531 - Pain in right wrist, M54.50 - Low back pain, unspecified, M79.641 - Pain in right hand XR shoulder RT min 2V Today M25.511 - Pain in right shoulder Coding Level of Care Code New Pt Level 4 (29453) Diagnoses Chronic bilateral low back pain with right-sided sciatica M54.41; G89.29 Back pain laterality: bilateral Sciatica presence: with sciatica Sciatica laterality: sciatica of right side Right hand pain M79.641 Right wrist pain M25.531
[2023-04-10 09:43] VITALS: BP 98/60; PULSE 58; TEMP 36.1; O2SAT 98; BMI 28.9
== END 2023-04-10 10:33 | disposition home or self-care (01) ==
PROVIDERS: PCP Physician Assistant; Visit Provider Nurse Practitioner Family
DX: M54.41 Lumbago with sciatica, right side (principal); G89.29 Other chronic pain; M79.641 Pain in right hand; M25.531 Pain in right wrist
CPT/HCPCS: 99204

== ENCOUNTER 2023-04-13 09:30 | Emergency (ER) | payer OTHER, SELFPAY ==
--- NOTE | ~2023-04-13 | US_ITS ---
EXAMINATION: US SCROTUM US SCROTUM DOPPLER CLINICAL INFORMATION: Testicular pain. COMPARISON: Multiple priors, most recent scrotal ultrasound dated 04/08/2017. TECHNIQUE: A sonogram of the scrotum was performed assessing blakely-scale appearance and color Doppler flow. Spectral Doppler analysis of the arterial and venous flow were performed in the testes bilaterally. FINDINGS: RIGHT: Right testicle measures 4.8 x 2.3 x 2.9 cm, volume 16.7 mL. No focal testicular parenchymal lesions are visualized. Spectral Doppler analysis of the arterial and venous flow is normal in the right testis. Redemonstration of a calcification adjacent to the right epididymis measuring up to 0.6 cm as seen on the prior ultrasound which could represent a scrotal caro. Right epididymal head is normal in size. Right epididymal head simple cyst measuring 0.6 cm. No right hydrocele or varicocele is seen. Right epididymal Doppler flow is slightly increased in prominence. LEFT: Left testicle measures 4.6 x 2.6 x 2.9 cm, volume 18 mL. No focal testicular parenchymal lesions are visualized. Spectral Doppler analysis of the arterial and venous flow is normal in the left testis. Left epididymal head is normal in size. Left epididymal head cyst measuring 0.8 cm. Mild heterogeneity of the epididymal tail. No left hydrocele or varicocele is seen. Left epididymal Doppler flow is normal. US/US scrotum IMPRESSION: 1. Mildly increased Doppler detectable vascular flow within the right epididymis which could indicate mild epididymitis. Slight heterogeneity of the left epididymal tail with normal Doppler detectable vascular flow. 2. Stable calcification adjacent to the right epididymis, which could represent a scrotal caro. 3. No testicular parenchymal lesion. Normal Doppler detectable vascular flow within the right and left testicle.
--- NOTE | ~2023-04-13 | US_ITS ---
EXAMINATION: US SCROTUM US SCROTUM DOPPLER CLINICAL INFORMATION: Testicular pain. COMPARISON: Multiple priors, most recent scrotal ultrasound dated 04/08/2017. TECHNIQUE: A sonogram of the scrotum was performed assessing blakely-scale appearance and color Doppler flow. Spectral Doppler analysis of the arterial and venous flow were performed in the testes bilaterally. FINDINGS: RIGHT: Right testicle measures 4.8 x 2.3 x 2.9 cm, volume 16.7 mL. No focal testicular parenchymal lesions are visualized. Spectral Doppler analysis of the arterial and venous flow is normal in the right testis. Redemonstration of a calcification adjacent to the right epididymis measuring up to 0.6 cm as seen on the prior ultrasound which could represent a scrotal caro. Right epididymal head is normal in size. Right epididymal head simple cyst measuring 0.6 cm. No right hydrocele or varicocele is seen. Right epididymal Doppler flow is slightly increased in prominence. LEFT: Left testicle measures 4.6 x 2.6 x 2.9 cm, volume 18 mL. No focal testicular parenchymal lesions are visualized. Spectral Doppler analysis of the arterial and venous flow is normal in the left testis. Left epididymal head is normal in size. Left epididymal head cyst measuring 0.8 cm. Mild heterogeneity of the epididymal tail. No left hydrocele or varicocele is seen. Left epididymal Doppler flow is normal. US/US scrotum doppler IMPRESSION: 1. Mildly increased Doppler detectable vascular flow within the right epididymis which could indicate mild epididymitis. Slight heterogeneity of the left epididymal tail with normal Doppler detectable vascular flow. 2. Stable calcification adjacent to the right epididymis, which could represent a scrotal caro. 3. No testicular parenchymal lesion. Normal Doppler detectable vascular flow within the right and left testicle.
[2023-04-13 09:32] VITALS: BP 150/95; PULSE 70; RESP 16; TEMP 36.7; O2SAT 99; BMI 26.5
[2023-04-13 09:46] LABS: MANUAL DIFF FLAG NO
--- NOTE | 2023-04-13 09:47 | ED_ITS ---
HPI - Male Genitourinary General Chief complaint: Urogenital-Male Stated complaint: Right side abd & back pain Time Seen by Provider: 04/13/23 09:47 Source: patient Mode of arrival: ambulatory Limitations: no limitations History of Present Illness HPI Narrative: Patient is a 42 yo male with a history of HTN, anemia, FERN, S/p orchiopexy (1999) and vasectomy (2006) presents to the ED with a 12 hour history of right testicular pain. Patient reports after taking a shower last night he started to feel an intense sharp, heavy pain in his right testicle that radiated to his right lower back and is worse when standing or moving. Patient reports the pain ranges from an 8-9/10 when moving around and does not report relief when the testicle is lifted. Patient stated that he recently recovered from a viral infection about 3 weeks prior to the onset of these symptoms. Denies dysuria, polyuria, and recent ABX use MD Complaint: testicle pain Onset (ago): hour(s) (12) Duration: constant and other (When standing or moving) Location: right testicle Severity: mild Severity scale (1-10): 4 Quality: sharp and other (scrotal heaviness) Relieving factors: rest Exacerbating factors: palpation and movement Context: other (Recent viral infection) Associated symptoms: Denies discharge, dysuria or incontinence Related Data Sexually active: Yes Previous Rx's Medication Instructions Recorded clonidine HCl 0.1 mg tablet 0.1 mg PO DAILY #20 tabs 12/04/21 cetirizine 10 mg tablet 10 mg PO DAILY 60 days #60 tabs 12/26/22 cyclobenzaprine 5 mg tablet 5 mg PO Q12H PRN muscle spasm #10 03/10/23 tabs lisinopril 5 mg tablet 5 mg PO DAILY 30 days #30 tabs 03/10/23 naproxen 250 mg tablet 250 mg PO BID #30 tabs 03/10/23 lidocaine 5 % topical patch 1 patch topical DAILY 30 days #30 03/26/23 ea tramadol 50 mg tablet 50 mg PO DAILY 10 days #10 tabs 04/09/23 doxycycline hyclate 100 mg tablet 100 mg PO BID 7 days #14 tabs 04/13/23 Allergies Allergy/AdvReac Type Severity Reaction Status Date / Time No Known Allergies Allergy Verified 04/10/23 09:47 [No Known Allergies*] N.K.D.A. Allergy Unknown Unknown Uncoded 04/10/23 09:47 Review of Systems 2 Constitutional: Constitutional: Reports no additional constitutional complaints, Denies chills, Denies fever(s) and Denies night sweats Eyes: Eyes: Reports no additional eye complaints, Denies blurry vision, Denies change in vision, Denies diplopia, Denies eye discharge, Denies loss of vision and Denies eye pain ENT: Denies dizziness Cardiovascular: Cardiovascular: Reports no additional cardiovascular complaints, Denies chest pain, Denies lightheadedness, Denies Loss of Consciousness and Denies dyspnea Respiratory: Respiratory: Reports no additional respiratory complaints and Denies dyspnea Gastrointestinal: Gastrointestinal: Reports no additional gastrointestinal complaints, Denies abdominal pain, Denies melena, Denies hematochezia, Denies change in bowel habits and Denies change in stool character Genitourinary: Genitourinary: Reports no additional male genitourinary complaints, Denies hematuria, Denies oliguria, Denies difficulty urinating, Denies dysuria, Reports testicular pain, Denies urinary frequency, Denies urinary hesitancy, Denies urinary incontinence and Denies urinary urgency Musculoskeletal: Musculoskeletal: Reports no additional musculoskeletal complaints, Denies numbness and Denies tingling Neurologic: Denies dizziness, Denies loss of vision, Denies numbness and Denies tingling Psychiatric: Psychiatric: Reports no additional psychiatric complaints Endocrine: Endocrine: Reports no additional endocrine complaints Hematologic/Lymphatic: Hematologic/Lymphatic: Reports no additional hematologic/lymphatic complaints Allergic/Immunologic: Allergic/Immunologic: Reports no additional allergic/immunologic complaints [facility] Past Medical History Attestation statement: The following information was validated with the patient. Source: old records reviewed and nursing notes reviewed Medical History Right shoulder pain Chronic lower back pain Surgical History History of lumbar surgery Family History Family History Father Colon cancer, Onset Age: 47 CAD (coronary artery disease), Onset Age: 55 Mother Ovarian cancer Sister Arthritis Social History Social History Housing: House Alcohol intake: current Alcohol intake frequency: holidays/special occasions only Patient Tobacco Use Status: Never used Tobacco Smoked in Last 30 Days: No e-Cigarette/Vaping Use: Never Used Second Hand Smoke Exposure: No Use of substances other than those prescribed or required for medical reasons: No Advance Directives: Yes Advance Directives Information Provided: Yes Advance Directives on File: No service: No Current occupational status: employed 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 Current occupational exposures/hazards: No Cognitive needs: No Hearing needs: No Vision needs: No Physical Exam 2 Vital Signs: Vital Signs: Last Vital Signs Temp 98 F 04/13/23 11:22 Pulse 59 04/13/23 11:22 Resp 16 04/13/23 11:22 BP 149/87 H 04/13/23 11:22 Pulse Ox 98 04/13/23 11:22 O2 Del Method Room Air 04/13/23 11:22 BMI result Body Mass Index 26.5 Const: General: cooperative, no acute distress, alert and awake Nutritional Appearance: well nourished Orientation/consciousness: patient oriented x3 Limitations: no limitations HEENT: Head: Yes normal to inspection and Yes atraumatic Ears: hearing grossly normal bilaterally and external ears normal General nose exam: Normal external nose present, no nasal discharge noted and no epistaxis Face and sinus: Yes normal facial exam, No abrasion and No laceration Mouth: Normal oral and palatal mucosa present, no drooling and no muffled voice Eyes: General: appearance normal, both eyes and all related structures P eriorbital: periorbital findings normal Eyelids: Yes eyelids normal C onjunctivae: conjunctivae normal Pupils: Equal, round and reactive pupils present EOM: EOMs intact bilaterally Neck: Neck: Yes normal visual inspection, Yes full ROM and Yes no lymphadenopathy Chest: Chest palpation & inspection: normal inspection of the chest Resp: Effort & Inspection: normal respiratory effort and able to speak in complete sentences GI: Inspection: Yes normal to inspection : Male General Exam: Yes normal external exam Neuro: General: patient oriented x3 and moves all extremities Cranial nerves: Yes Equal, round and reactive pupils present Cognition (Neuro): n ormal cognition Motor exam (neuro): 5/5 motor strength present throughout Sensory Exam: Normal double simultaneous stimulation for sensation C oordination: [id number] test normal Extrem: General: Yes normal to inspection, Yes full ROM and Yes capillary refill normal Psych: Appearance: grossly normal Mental Status: mental status grossly normal Affect: normal affect Attitude: cooperative Thought process: N ormal thought process present Thought content: Normal thought content present Insight: Good insight present (Psych) Medications Administered Discontinued Medications Generic Name Dose Route Start Last Admin Trade Name Danny PRN Reason Stop Dose Admin Ceftriaxone Sodium 500 mg/ 0 mg 04/13/23 11:05 04/13/23 11:15 Lidocaine HCl 1 ml IM 04/13/23 11:06 500 kit ONCE ONE Administration Medical Decision Making Medical Decision Making MDM Narrative: Patient is a 42 year old assigned male at with a history of multiple scrotal surgeries presenting to the emergency department today with right scrotal pain. Patient's physical exam was unremarkable. Patient's blood work was unremarkable. Patient's urine showed no acute process. Patient's scrotal US showed evidence of epididymitis. I explained my physical exam findings as well as all test results to the patient. I answered all questions asked by the patient. I stressed the importance of the patient taking his medication as prescribed. I stressed the importance of the patient following up with his primary care provider and a urologist. I stressed the importance of the patient returning to the emergency department immediately if his symptoms were to worsen or if he were to develop any dizziness, shortness of breath, difficulty breathing, chest pain, blurry vision, loss of vision, nausea, vomiting, abdominal pain, fever, chills, back pain, or any other complaints. Patient verbalized agreement and understanding with this treatment plan and discharge. Differential Diagnosis Differential Diagnoses: The differential diagnosis associated with the presentation includes Epididymitis Testicular pain Testicular torsion Admission/Observation Consideration of admission/observation: Escalation of care including admission/observation considered Patient would have been admitted to the hospital had his work up had any findings where hospital admission was appropriate and his clinical presentation warranted hospital admission. Lab Data [facility] Lab Attestation statement: I reviewed the patient's lab results. My interpretation of these results are in the [facility] Rationale portion of this note. 04/13/23 09:42 04/13/23 09:42 Labs: Lab Results 04/13/23 04/13/23 Range/Units 09:42 10:54 WBC 6.6 (4.8-10.8) X10*3/uL RBC 5.74 (4.60-5.80) X10*6/uL Hgb 13.9 L (14.0-18.0) g/dl Hct 42.7 (42.0-52.0) % MCV 74.4 L (80.0-98.0) fL MCH 24.2 L (27.0-33.0) pg MCHC 32.6 (31.0-36.0) g/dl RDW 14.4 (11.0-16.0) % Plt Count 281 (160-400) X10*3/uL MPV 8.9 L (9.4-12.4) fL Immature Gran % (Auto) 0.2 (0.0-0.4) % Neut % (Auto) 57.4 (45-73) % Lymph % (Auto) 32.4 (20-40) % [place] % (Auto) 7.5 (2-11) % Eos % (Auto) 2.0 (0-4) % Baso % (Auto) 0.5 (0-2) % Lymph # (Auto) 2.2 (1.2-4.9) X10*3/uL [place] # (Auto) 0.5 (0.1-1.2) X10*3/uL Eos # (Auto) 0.1 (0.0-0.4) X10*3/uL Baso # (Auto) 0.0 (0.0-0.2) X10*3/uL Abs Immat Gran (auto) 0.01 (0.00-0.03) X10*3/uL Absolute Neuts (auto) 3.8 (2.0-8.3) x10*3/uL Absolute Nucleated RBC 0.000 (0.0-0.012) X10*3/uL Nucleated RBC % (auto) 0.0 (0.0-0.2) /100WBC Sodium 143 (135-145) mmol/L Potassium 3.8 (3.3-5.1) mmol/L Chloride 104 (96-108) mmol/L Carbon Dioxide 32 H (22-29) mmol/L Anion Gap 11 L (12-20) BUN 15 (9-16) mg/dL Creatinine 1.02 (0.5-1.4) mg/dL Estim Creat Clear Calc 99.4 Estimated GFR > 60 Random Glucose 74 (60-115) mg/dL Calcium 9.9 (8.4-10.2) mg/dL Total Bilirubin 0.4 (0.0-1.0) mg/dL AST 21 (5-37) U/L ALT 34 (0-40) U/L Alkaline Phosphatase 64 (39-117) U/L Total Protein 7.0 (6.5-8.0) g/dL Albumin 4.2 (3.5-5.0) g/dL Urine Color Yellow Urine Appearance Clear Urine pH 8.0 (5.0-9.0) Ur Specific [place] 1.015 (1.005-1.025) Urine Protein Negative (Neg-Trace) mg/dL Urine Glucose (UA) Negative (Negative) mg/dL Urine Ketones Negative (Negative) mg/dL Urine Blood Negative (Negative) Urine Nitrite Negative (Negative) Ur Leukocyte Esterase Trace H (Negative) Urine RBC 0-2 (0-2) /HPF Urine WBC 0-5 (0-5) /HPF Ur Squamous Epith Cells 0-2 (0-2) /HPF Urine Bacteria None Seen (None Seen) Hyaline Casts 0-2 (0-2) /LPF Chlam trachomat DNA PCR NOT DETECTED (Not Detect.) N.gonorrhoeae DNA (PCR) NOT DETECTED (Not Detect.) Independent Interpretation I performed an independent interpretation of an: Ultrasound Interpretation: My interpretation is in agreement with the radiologist's impression of this imaging study. - EXAMINATION: US SCROTUM US SCROTUM DOPPLER CLINICAL INFORMATION: Testicular pain. COMPARISON: Multiple priors, most recent scrotal ultrasound dated 04/08/2017. TECHNIQUE: A sonogram of the scrotum was performed assessing blakely-scale appearance and color Doppler flow. Spectral Doppler analysis of the arterial and venous flow were performed in the testes bilaterally. FINDINGS: RIGHT: Right testicle measures 4.8 x 2.3 x 2.9 cm, volume 16.7 mL. No focal testicular parenchymal lesions are visualized. Spectral Doppler analysis of the arterial and venous flow is normal in the right testis. Redemonstration of a calcification adjacent to the right epididymis measuring up to 0.6 cm as seen on the prior ultrasound which could represent a scrotal caro. Right epididymal head is normal in size. Right epididymal head simple cyst measuring 0.6 cm. No right hydrocele or varicocele is seen. Right epididymal Doppler flow is slightly increased in prominence. LEFT: Left testicle measures 4.6 x 2.6 x 2.9 cm, volume 18 mL. No focal testicular parenchymal lesions are visualized. Spectral Doppler analysis of the arterial and venous flow is normal in the left testis. Left epididymal head is normal in size. Left epididymal head cyst measuring 0.8 cm. Mild heterogeneity of the epididymal tail. No left hydrocele or varicocele is seen. Left epididymal Doppler flow is normal. US/US scrotum IMPRESSION: 1. Mildly increased Doppler detectable vascular flow within the right epididymis which could indicate mild epididymitis. Slight heterogeneity of the left epididymal tail with normal Doppler detectable vascular flow. 2. Stable calcification adjacent to the right epididymis, which could represent a scrotal caro. 3. No testicular parenchymal lesion. Normal Doppler detectable vascular flow within the right and left testicle. Dictated By: Cliff Macias MD Signed By: Electronically signed by Cliff Macias MD 04/13/23 [id number] Radiology Impression Discussion of test interpretation with radiology: I have reviewed the radiologist's reading. Prescription Management I considered prescription management with: Antibiotic (patient prescribed an antibiotic for epididymitis) Discharge Plan Discharge Clinical Impression: Epididymitis Patient Disposition: Home, Self-Care Instructions: Epididymitis (ED) Additional Instructions: Follow up with your primary care provider and a urologist. Return to the emergency department immediately if your symptoms worsen or if you develop any dizziness, shortness of breath, difficulty breathing, chest pain, blurry vision, loss of vision, nausea, vomiting, abdominal pain, fever, chills, back pain, or any other complaints. Prescriptions: New doxycycline hyclate 100 mg tablet 100 mg PO BID 7 Days Qty: 14 0RF No Action clonidine HCl 0.1 mg tablet 0.1 mg PO DAILY Qty: 20 2RF cetirizine 10 mg tablet 10 mg PO DAILY 60 Days Qty: 60 2RF lidocaine 5 % adhesive patch,medicated 1 patch topical DAILY 30 Days Qty: 30 0RF Rx Instructions: leave on most painful area for up to 12 hrs tramadol 50 mg tablet 50 mg PO DAILY 10 Days Qty: 10 0RF lisinopril 5 mg tablet 5 mg PO DAILY 30 Days Qty: 30 1RF naproxen 250 mg tablet 250 mg PO BID Qty: 30 3RF cyclobenzaprine 5 mg tablet 5 mg PO Q12H PRN (Reason: muscle spasm) Qty: 10 0RF Referrals: [facility] [Provider Group] (Call to establish and follow up with a urologist.) Dean Willis PA-C [Primary Care Provider] - Interventions: ED Discharge Assessment Last Done: 04/13/23 11:25 Discharge Date/Time: 04/13/23 11:25 Print Language: Greek
[2023-04-13 09:57] LABS: Basophils Percent Auto 0.5 % (0-2); Eosinophils Absolute Auto 0.1 X10*3/uL (0.0-0.4); Hematocrit 42.7 % (42.0-52.0); Hemoglobin 13.9 g/dl (14.0-18.0); Imm Gran Abs Auto 0.01 X10*3/uL (0.00-0.03); Imm Gran Pct Auto 0.2 % (0.0-0.4); Lymphocytes Absolute Auto 2.2 X10*3/uL (1.2-4.9); Lymphocytes Percent Auto 32.4 % (20-40); Mean Corpuscular HGB Conc 32.6 g/dl (31.0-36.0); Mean Corpuscular Hemoglobin 24.2 pg (27.0-33.0); Mean Corpuscular Volume 74.4 fL (80.0-98.0); Mean Platelet Volume 8.9 fL (9.4-12.4); Monocytes Absolute Auto 0.5 X10*3/uL (0.1-1.2); Monocytes Percent Auto 7.5 % (2-11); Neutrophils Absolute Auto 3.8 x10*3/uL (2.0-8.3); Neutrophils Percent Auto 57.4 % (45-73); Platelet Count 281 X10*3/uL (160-400); Red Blood Count 5.74 X10*6/uL (4.60-5.80); Red Cell Distribution Width 14.4 % (11.0-16.0); White Blood Count 6.6 X10*3/uL (4.8-10.8)
[2023-04-13 10:02] LABS: Alanine Aminotransferase 34 U/L (0-40); Albumin Level 4.2 g/dL (3.5-5.0); Alkaline Phosphatase 64 U/L (39-117); Anion Gap 11 (12-20); Aspartate Amino Transferase 21 U/L (5-37); Bilirubin Total 0.4 mg/dL (0.0-1.0); Blood Urea Nitrogen 15 mg/dL (9-16); Calcium 9.9 mg/dL (8.4-10.2); Carbon Dioxide 32 mmol/L (22-29); Chloride 104 mmol/L (96-108); Creatinine Clr Calc Pharmacy 99.4; Estimated Glomerular Filt Rate > 60; Glucose Random 74 mg/dL (60-115); Potassium 3.8 mmol/L (3.3-5.1); Sodium 143 mmol/L (135-145)
[2023-04-13 11:02] LABS: Appearance Urine Clear; Color Urine Yellow; Glucose Urine UA Negative (Negative); Leukocyte Esterase Urine Trace (Negative); Nitrite Urine Negative (Negative); Specific Gravity - Urine 1.015 (1.005-1.025); UMIC TRIGGER UACC YES; Urine Blood Negative (Negative); Urine Ketones Negative (Negative); Urine Protein Negative (Neg-Trace)
[2023-04-13 11:04] LABS: Bacteria Urine None Seen (None Seen); Hyaline Casts Urine 0-2 /LPF (0-2); RBC Urine 0-2 /HPF (0-2); Squamous Epithelial Cell Urine 0-2 /HPF (0-2); WBC Urine 0-5 /HPF (0-5)
[2023-04-13] MEDS: cefTRIAXone sodium 500 MG, Lidocaine HCl 1 % MPF 1 ML IM (11:15)
[2023-04-13 11:22] VITALS: BP 149/87; PULSE 59; RESP 16; TEMP 36.6; O2SAT 98
[2023-04-13 12:31] LABS: CT PCR NOT DETECTED (Not Detect.); NG PCR NOT DETECTED (Not Detect.)
== END 2023-04-13 11:25 | disposition home or self-care (01) ==
PROVIDERS: Physician Assistant Medical; Emergency Provider Student in an Organized Health Care Education/Training Program; PCP Physician Assistant
DX: N45.1 Epididymitis (principal); N48.89 Other specified disorders of penis; M54.50 Low back pain, unspecified; N50.89 Other specified disorders of the male genital organs; R10.2 Pelvic and perineal pain; Z79.899 Other long term (current) drug therapy
CPT/HCPCS: 0353U; 36415; 76870; 80053; 81001; 81003; 85025; 93975; 96372; 99284; J0696

== ENCOUNTER 2023-04-21 07:16 | Outpatient (REF) | payer OTHER, SELFPAY ==
--- NOTE | ~2023-04-21 | MR_ITS ---
EXAMINATION: MR LUMBAR SPINE WITHOUT CONTRAST CLINICAL INFORMATION: 42-year-old with lumbar radiculopathy. Self-reported severe low back pain. COMPARISON: None available. TECHNIQUE: MRI of the lumbar spine was obtained using routine sequences without contrast. FINDINGS: Coronal Alignment: Normal. Sagittal Alignment: There is lordotic loss with trace lordotic reversal centered at L2-L3 and mild degrees of retrolisthesis at L4-L5 and L5-S1. Lumbosacral Junction: Normal. There are 5 [id number] lumbar-type vertebral bodies. Vertebral Bodies: There is slight chronic anterior wedging of the L1, L2, L3 and L4 vertebral bodies. No acute or nonhealed fractures are seen. The findings are more consistent with chronic remodeling of the vertebral bodies. Disc Spaces and Endplates: Severe disc space height loss at L5-S1 is noted with intradiscal degenerative signal changes, Schmorl's nodes and spondylosis. Moderate disc volume loss also noted at L4-L5 with central Schmorl's nodes, disc desiccation and minor spondylosis. Central Schmorl's nodes are also noted at the levels between L3-L4 and T11-T12 inclusive and there is disc desiccation at T11-T12. Spinal Canal: No abnormal developmental findings. Bone Marrow: No suspicious marrow-replacing process or bone marrow edema. There are type I degenerative marrow signal changes along the endplates at L5-S1. Conus Medullaris: Terminates at T12-L1. Morphology and signal is normal. Intradural Nerve Roots: Within normal limits. L5-S1: Mild retrolisthesis is noted with concentric disc bulging and a superimposed small caudally migrated extrusion in the left subarticular zone encroaching on the left S1 nerve root. Slight flattening of the ventral thecal sac is also noted with crowding of the subarticular zones bilaterally with disc herniation extending into the left lateral recess. There is mild facet arthropathy without significant central canal stenosis. There is moderate bilateral neural foraminal stenosis with disc osteophyte complex slightly encroaching on the exiting right L5 nerve root. L4-L5: There is concentric disc bulging with evidence of a previous right-sided hemilaminectomy with chronic postoperative changes. There is ligamentum flavum thickening on the left and there is minor facet arthropathy without central canal stenosis. There is asymmetric narrowing of the left subarticular zone mildly encroaching on the traversing left L5 nerve root. The right subarticular zone appears decompressed. No significant neural foraminal stenosis. L3-L4: Minor annular bulging without significant facet arthrosis, canal or foraminal stenosis. L2-L3: Normal annular contour. No facet arthrosis, canal or foraminal stenosis. L1-L2: Normal annular contour. No facet arthrosis, canal or foraminal stenosis. T12-L1:Normal annular contour. No facet arthrosis, canal or foraminal stenosis. Paravertebral and Included Extraspinal Soft Tissues: The visualized paravertebral soft tissues and included retroperitoneal structures are unremarkable within the limitations of the exam. MR/MR lumbar spine wo con IMPRESSION: 1. Discogenic degenerative changes primarily at L4-L5 and L5-S1 with mild degrees of retrolisthesis at these levels. 2. Disc bulging and left subarticular disc herniation at L5-S1 with encroachment on the traversing left S1 nerve root. Moderate bilateral neural foraminal stenosis at this level with disc osteophyte complex encroaching on the exiting right L5 nerve root. 3. Postoperative changes on the right at L4-L5 with disc bulging and left-sided ligamentum flavum thickening with moderate narrowing of the left subarticular zone encroaching on the traversing left L5 nerve root. 4. Mild chronic anterior wedging of the L1, L2, L3 and L4 vertebral bodies without acute or nonhealed fractures associated with mild lordotic reversal centered at L2-L3.
== END 2023-04-21 07:17 | disposition home or self-care (01) ==
LOC: HO.MRI 07:16
PROVIDERS: PCP Physician Assistant; Visit Provider Registered Nurse Emergency
DX: M54.16 Radiculopathy, lumbar region (principal); M96.1 Postlaminectomy syndrome, not elsewhere classified; G62.9 Polyneuropathy, unspecified
CPT/HCPCS: 72148

== ENCOUNTER 2023-04-24 07:48 | Outpatient (REF) | payer OTHER, SELFPAY ==
--- NOTE | 2023-04-24 07:51 | EMG_ITS ---
Right tibial and peroneal motor studies were performed. Right superficial peroneal, sural, median, and lateral plantar studies were performed. Tibial H-reflex was obtained, and paraspinal muscles were tested with a needle. 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 MD DARVIN Glover/JOSE / [id number]
== END 2023-04-24 07:49 | disposition home or self-care (01) ==
LOC: HO.NEURO 07:48
PROVIDERS: PCP Physician Assistant; Visit Provider Registered Nurse Emergency
DX: G60.8 Other hereditary and idiopathic neuropathies (principal); G62.9 Polyneuropathy, unspecified
CPT/HCPCS: 95886; 95910

== ENCOUNTER 2023-05-02 13:28 | Outpatient (AMB) | payer OTHER, SELFPAY ==
--- NOTE | 2023-05-02 13:29 | MHC.OFFVIS ---
Intake Intake Visit Reasons: Go over MRI and EMG results Allergies No Known Allergies [No Known Allergies*] Allergy (Verified 04/10/23 09:47) N.K.D.A. Allergy (Unknown, Uncoded 04/10/23 09:47) Unknown HPI HPI Comments History of Present Illness Details Telehealth visit completed today for follow-up, review of MRI and EMG. Results of MRI and EMG reviewed with patient, as per below. Patient states he continues with pain across the lower back and numbness, tingling his right lower leg from the knee to the foot. He reports these symptoms are manageable. He has tried Lyrica in the past but did not like the side effects we stopped taking it. He has recently started physical therapy, reports still only been a couple weeks so has not noticed much benefit as of yet. Had recent visit with rheumatology, scheduled for follow-up. States they did blood work and he is waiting for the results. Prior: Chilo is a very pleasant 42-year-old male who presents the office today for evaluation management of his chronic lower back pain. He has been suffering with this pain for greater than 15 years. Status post partial discectomy in 2006 after he injured his back falling during a recreational football game. Prior to that he had been active in basketball and pain was present before the football injury but became significantly worse after the fall. He was evaluated at that time in the emergency room and ultimately underwent surgery. He does endorse burning pain, numbness and tingling down the right leg to include the right foot. Initially it was more in the foot but has been progressively getting worse over the years. He states that this started prior to surgery and persisted after. At one point he was started on Lyrica but had side effects so he stopped taking it. For 2 years after surgery he was seen in pain management and underwent multiple injections but found that they did not provide him benefit so he worked more on lifestyle modifications. Patient denies red flag symptoms including new loss of bowel, bladder or saddle anesthesia. Recent xray, results as per below. He has not had recent MRI, last one was greater than 10 years ago. Pain today is rated as an 8/10, across the lower back and down the right leg. Pain is constant, worse with weather changes and movement. In terms of muscle damage condition is described as pulsing, throbbing, pounding, jumping, flushing, shooting, stabbing, sharp, cutting, tingling, burning, scalding, dull, sore, hurting, aching, heavy, tight, squeezing. Pain is negatively impacting patient's enjoyment of life, ability to perform activities of daily living, ability to function normally. After surgery he completed physical therapy with no improvement of his symptoms. Patient is interested in retrying physical therapy, he was expecting a call after recent PCP visit but states that physical therapy has not reached out to him to schedule appointment. He has been doing home exercise program but reports that the stretching has been getting increasingly more difficult over the last year. Patient has been using [id number] lidocaine patches and nonsteroidal anti-inflammatory medications with some relief. When pain is severe he has tramadol and cyclobenzaprine but uses those very rarely. He has also changed his lifestyle and improved his diet and physical activity but pain persists. [facility] Medical History Right shoulder pain Chronic lower back pain Surgical History History of lumbar surgery Family History Father Colon cancer, Onset Age: 47 CAD (coronary artery disease), Onset Age: 55 Mother Ovarian cancer Sister Arthritis Social History Housing: House Alcohol intake: current Alcohol intake frequency: holidays/special occasions only Patient Tobacco Use Status: Never used Tobacco e-Cigarette/Vaping Use: Never Used Second Hand Smoke Exposure: No service: No Current occupational status: employed Current occupation: [employer]- remote from home Current occupational exposures/hazards: No Cognitive needs: No Hearing needs: No Vision needs: No Review of Systems Const All systems reviewed & are unremarkable except as noted in HPI and below Physical Exam Physical exam deferred, [facility] only Results Reviewed Results Reviewed: 04/24/2023 EMG Right tibial and peroneal motor studies were performed. Right superficial peroneal, sural, median, and lateral plantar studies were performed. Tibial H-reflex was obtained, and paraspinal muscles were tested with a needle. 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 04/21/2023 MR/MR lumbar spine wo con FINDINGS: Coronal Alignment: Normal. Sagittal Alignment: There is lordotic loss with trace lordotic reversal centered at L2-L3 and mild degrees of retrolisthesis at L4-L5 and L5-S1. Lumbosacral Junction: Normal. There are 5 [id number] lumbar-type vertebral bodies. Vertebral Bodies: There is slight chronic anterior wedging of the L1, L2, L3 and L4 vertebral bodies. No acute or nonhealed fractures are seen. The findings are more consistent with chronic remodeling of the vertebral bodies. Disc Spaces and Endplates: Severe disc space height loss at L5-S1 is noted with intradiscal degenerative signal changes, Schmorl's nodes and spondylosis. Moderate disc volume loss also noted at L4-L5 with central Schmorl's nodes, disc desiccation and minor spondylosis. Central Schmorl's nodes are also noted at the levels between L3-L4 and T11-T12 inclusive and there is disc desiccation at T11-T12. Spinal Canal: No abnormal developmental findings. Bone Marrow: No suspicious marrow-replacing process or bone marrow edema. There are type I degenerative marrow signal changes along the endplates at L5-S1. Conus Medullaris: Terminates at T12-L1. Morphology and signal is normal. Intradural Nerve Roots: Within normal limits. L5-S1: Mild retrolisthesis is noted with concentric disc bulging and a superimposed small caudally migrated extrusion in the left subarticular zone encroaching on the left S1 nerve root. Slight flattening of the ventral thecal sac is also noted with crowding of the subarticular zones bilaterally with disc herniation extending into the left lateral recess. There is mild facet arthropathy without significant central canal stenosis. There is moderate bilateral neural foraminal stenosis with disc osteophyte complex slightly encroaching on the exiting right L5 nerve root. L4-L5: There is concentric disc bulging with evidence of a previous right-sided hemilaminectomy with chronic postoperative changes. There is ligamentum flavum thickening on the left and there is minor facet arthropathy without central canal stenosis. There is asymmetric narrowing of the left subarticular zone mildly encroaching on the traversing left L5 nerve root. The right subarticular zone appears decompressed. No significant neural foraminal stenosis. L3-L4: Minor annular bulging without significant facet arthrosis, canal or foraminal stenosis. L2-L3: Normal annular contour. No facet arthrosis, canal or foraminal stenosis. L1-L2: Normal annular contour. No facet arthrosis, canal or foraminal stenosis. T12-L1:Normal annular contour. No facet arthrosis, canal or foraminal stenosis. Paravertebral and Included Extraspinal Soft Tissues: The visualized paravertebral soft tissues and included retroperitoneal structures are unremarkable within the limitations of the exam. IMPRESSION: 1. Discogenic degenerative changes primarily at L4-L5 and L5-S1 with mild degrees of retrolisthesis at these levels. 2. Disc bulging and left subarticular disc herniation at L5-S1 with encroachment on the traversing left S1 nerve root. Moderate bilateral neural foraminal stenosis at this level with disc osteophyte complex encroaching on the exiting right L5 nerve root. 3. Postoperative changes on the right at L4-L5 with disc bulging and left-sided ligamentum flavum thickening with moderate narrowing of the left subarticular zone encroaching on the traversing left L5 nerve root. 4. Mild chronic anterior wedging of the L1, L2, L3 and L4 vertebral bodies without acute or nonhealed fractures associated with mild lordotic reversal centered at L2-L3. Assessment & Plan Assessment & Plan (1) Neuropathy: Code(s): G62.9 - Polyneuropathy, unspecified (2) Lumbar radiculopathy: Code(s): M54.16 - Radiculopathy, lumbar region (3) Post laminectomy syndrome: Comment: partial discectomy 2006 Code(s): M96.1 - Postlaminectomy syndrome, not elsewhere classified (4) Lumbar facet arthropathy: Code(s): M47.816 - Spondylosis without myelopathy or radiculopathy, lumbar region Plan Telehealth visit completed today for follow-up chronic lower back pain. Results of recent MRI and EMG reviewed with the patient, as per above Continue with physical therapy as planned Patient has exhausted greater than 6 months of conservative therapy including topical lidocaine patches, nonsteroidal anti-inflammatory medications, muscle relaxers, prescription opioids, physical therapy, home exercise program and previous steroid injections. Discussed diagnosis and options for treatment including diagnostic interventional testing, epidural steroid injections, peripheral nerve stimulation with Sprint, RFA and more permanent neuromodulation. Informational pamphlets provided. Offered patient L5 transforaminal epidural steroid injection, he has had this in the past and states it was very painful without giving him much benefit. He declines repeating at this time. Discussed again spinal cord stimulation trial. Patient would like some time to discuss with his . We will send him an informational packet in the mail to review. All questions and concerns have been answered and patient agrees with the plan. Follow up after review of SCS information, sooner if needed. Telehealth Telehealth Location of provider rendering services: practice address Location of patient: address on file Patient Identification confirmed using: Name, : Yes Telehealth method: voice only Patient verbally consented to treatment: Yes Patient verbally consented to billing insurance company: Yes Patient informed of any privacy concerns related to visit: Yes Minutes spent on Phone/Video with Pt.: 14 Coding Level of Care Code Tele New Pt Level 3 (08066) Diagnoses Neuropathy G62.9 Lumbar radiculopathy M54.16 Post laminectomy syndrome M96.1 Lumbar facet arthropathy M47.816
== END 2023-05-02 13:30 | disposition home or self-care (01) ==
LOC: HO.PMC 13:28
PROVIDERS: PCP Physician Assistant; Visit Provider Registered Nurse Emergency
DX: G62.9 Polyneuropathy, unspecified (principal); M54.16 Radiculopathy, lumbar region; M96.1 Postlaminectomy syndrome, not elsewhere classified; M47.816 Spondylosis without myelopathy or radiculopathy, lumbar region
CPT/HCPCS: 99442

== ENCOUNTER → 2023-05-02 13:28 | Outpatient (BNVA) | payer OTHER, SELFPAY | PROVIDERS: PCP Physician Assistant; Visit Provider Registered Nurse Emergency ==

== ENCOUNTER 2023-05-05 16:37 | Outpatient (REF) | payer OTHER, SELFPAY ==
[2023-05-05 17:42] LABS: Amphetamine Screen Urine Not Detected (Not Detect); Barbiturates, Urine Not Detected (Not Detect); Benzodiazepines Screen Urine Not Detected (Not Detect); Cannabinoid Screen Urine Not Detected (Not Detect); Cocaine Screen Urine Not Detected (Not Detect); Fentanyl, urine Not Detected (Not Detect); Opiate Screen Urine Not Detected (Not Detect); Phencyclidine Screen Urine Not Detected (Not Detect)
[2023-05-05 18:24] LABS: Creatinine Urine 196.36 mg/dL
[2023-05-06 18:33] LABS: Rubella IgG Antibody 7.11 Index
[2023-05-08 07:48] LABS: TS Negative Control Passed; TS Panel A 0; TS Panel B 0; TS Positive Control Passed; TSpotTB Negative (Negative)
== END 2023-05-05 16:38 | disposition home or self-care (01) ==
LOC: HO.LAB 16:37
PROVIDERS: PCP Physician Assistant; Visit Provider Physician Assistant
DX: Z02.1 Encounter for pre-employment examination (principal); I10 Essential (primary) hypertension; Z11.1 Encounter for screening for respiratory tuberculosis; Z23 Encounter for immunization
CPT/HCPCS: 80307; 82043; 82570; 86481; 86735; 86762; 86765; 86787

== ENCOUNTER 2023-05-08 12:48 | Outpatient (AMB) | payer OTHER, SELFPAY ==
--- NOTE | 2023-05-08 12:52 | MHC.OFFVIS ---
Intake Vital Signs 05/08/23 12:54 Height 5 ft 11 in Weight 190 lb BMI 26.5 BP 136/82 Blood Pressure Location Rt brachial Position Sitting Pulse 84 Pulse Source Pulse Oximeter Temp 97.2 F Temp Source Skin Pulse Oximetry (%) 98 Oxygen Delivery Method Room Air Intake Visit Reasons: Lower Back pain/CONFIRMED Intake Note: Patient last seen 04/10/23 by Jenna, presents today for follow up and test results. 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 Allergy (Unknown, Uncoded 05/14/23 08:34) Unknown HPI HPI Comments History of Present Illness Details Mr. Woo 42-year-old male returns for review of diagnostics, for evaluation of low back pain and right knee pain. He has been doing better since last visit. He had started PT. He says he is careful with positioning himself and tries not do any sudden moves. He does realize that he cannot do heavy work as before. Initial history: Mr. Woo 42-year-old male here on referral by his PCP for evaluation of low back pain and right knee pain. Has a long history of low back pain, since early adulthood. He has had lumbar surgery for fractured vertebrae days. He has a history of corticosteroids injection and physical therapy. He has on a regimen of tramadol p.r.n., naproxen, cyclobenzaprine p.r.n. and lidocaine 5% patches. This makes the lower back pain fairly manageable. With the low back pain there is osteoarthritis proven by x-rays and he has an MRI scheduled for April 20. He also describes numbness down his right leg and has an EMG study scheduled for early April. In recent times he has been experiencing right knee pain specifically when climbing stairs. He has possibly injured his right wrist from punching a gym bag without using boxing gloves. His PCP has ordered an x-ray and he just had that done. He endorses that his fingers turn white when his hands get cold. The patient denies psoriasis and other rashes, uveitis, tendinitis, Achilles tendonitis, plantar fasciitis. He denies other signs and symptoms of connective tissue disease and inflammatory processes to include but not limited to mouth or nare sores, chronic fatigue, red warm and swollen joints. He does not have abdominal concerns for chronic diarrhea, blood or mucus in the stool. He denies urinary concerns. [facility] Medical History (Updated 05/16/23 @ 09:37 by MIRANDA Juarez) Elevated uric acid in blood Right shoulder pain Chronic lower back pain Surgical History History of lumbar surgery Family History Father Colon cancer, Onset Age: 47 CAD (coronary artery disease), Onset Age: 55 Mother Ovarian cancer Sister Arthritis Social History Housing: House Alcohol intake: current Alcohol intake frequency: holidays/special occasions only Patient Tobacco Use Status: Never used Tobacco e-Cigarette/Vaping Use: Never Used Second Hand Smoke Exposure: No service: No Current occupational status: employed Current occupation: [employer] - [employer]- remote from home Current occupational exposures/hazards: No Cognitive needs: No Hearing needs: No Vision needs: Yes Physical Exam Vital Signs: Last Vital Signs Temp 97.2 F 05/08/23 12:54 Pulse 84 05/08/23 12:54 BP 136/82 05/08/23 12:54 Pulse Ox 98 05/08/23 12:54 Oxygen Delivery Method Room Air 05/08/23 12:54 BMI result Body Mass Index 26.5 Vital signs reviewed. Constitutional: Non-toxic appearing. No acute distress. Well-developed and well-nourished. HEENT: Normocephalic and atraumatic. External auditory canals without erythema or edema bilaterally. mucous membranes. Skin: Warm and dry. No rashes or lesions noted. Neck: Full and painless range of motion. No cervical lymphadenopathy. Cardio: Regular rate and rhythm. No murmurs, gallops, or rubs. No lower extremity edema. No JVD. Pulmonary: No respiratory distress. No accessory muscle usage. Musculoskeletal: Normal range of motion in joints throughout the body. No deformity or other signs of injury. Neuro: Alert and oriented x4. Cranial nerves 2-12 grossly intact. No focal deficits appreciated. Results Reviewed Results Reviewed: No labs significant Assessment & Plan Assessment & Plan (1) Chronic lower back pain: Code(s): M54.50 - Low back pain, unspecified; G89.29 - Other chronic pain Qualifiers: Back pain laterality: bilateral Sciatica laterality: sciatica of right side Sciatica presence: with sciatica Qualified Code(s): M54.41 - Lumbago with sciatica, right side; G89.29 - Other chronic pain (2) Right hand pain: Code(s): M79.641 - Pain in right hand (3) Right wrist pain: Code(s): M25.531 - Pain in right wrist (4) Elevated uric acid in blood: Code(s): E79.0 - Hyperuricemia without signs of inflammatory arthritis and tophaceous disease Plan #Back pain/hand/wrist: Mr. Mcgill presents today to review his results in the context of lower back pain and right knee pain. His results did not reflect an inflammatory arthritis especially with normal CRP and ESR and negative HLA B27. I discussed with patient that though his lumbar spine reflects mechanical causes based on imaging sometimes an underlying inflammatory arthritis can worsened the pain. I offered a trial of immunosuppressant therapy but patient declined at this time. He will continue to see pain management and follow-up with his PT. patient will call the office should he want to proceed further the TNF trial. #Elevated uric acid (new): His results included elevated uric acid level and adequate kidney function. He denies any experiences with gout. I discussed with patient that there is no need at this time to start him on allopurinol to lower his uric acid levels. He will call the office should he have any joint swelling redness and warmth. Return to clinic in 6 month 25 minutes was spent reviewing chart, discussing labs and options with patient and documenting Initial assessment 04/10/2023: The patient shares that he has not as active as he used to be before because of the pain. Patient states he has had back pain since his early adulthood where he is felt tenderness and stiffness but has just always dealt with it. It can be reasonable to assume that it is possible he has inflammatory back pain given age of onset, and the severity of the osteoarthritis. However he denies additional features including uveitis, psoriasis, dactylitis, Crohn's, ulcerative colitis, and tenderness, swelling, warmth to other joint. He currently has pain to his right wrist but I think that is because of the injury which also causes the tenderness to his right MCP and PIP joints. The patient states the knee pain is brought on by movements such as climbing stairs. He denies warmth or swelling to the knee. I think this is likely osteoarthritis and may also be related to the radiculopathy. At this time I do not see inflammatory causes for his pain which is likely from mechanical causes. Nonetheless I will evaluate further with additional labs to ascertain for inflammation or associated antigens such as HLA B27. Patient has an lumbar MRI scheduled for May 04 that will give additional information and identify any features of inflammation Coding Level of Care Code Est Pt Level 3 (49595) Diagnoses Chronic bilateral low back pain with right-sided sciatica M54.41; G89.29 Back pain laterality: bilateral Sciatica laterality: sciatica of right side Sciatica presence: with sciatica Right hand pain M79.641 Right wrist pain M25.531 Elevated uric acid in blood E79.0
[2023-05-08 12:54] VITALS: BP 136/82; PULSE 84; TEMP 36.2; O2SAT 98; BMI 26.5
== END 2023-05-08 13:22 | disposition home or self-care (01) ==
PROVIDERS: PCP Physician Assistant; Visit Provider Nurse Practitioner Family
DX: M54.41 Lumbago with sciatica, right side (principal); G89.29 Other chronic pain; M79.641 Pain in right hand; M25.531 Pain in right wrist; E79.0 Hyperuricemia without signs of inflammatory arthritis and tophaceous disease
CPT/HCPCS: 99213

== ENCOUNTER → 2023-05-08 12:48 | Outpatient (BNVA) | payer OTHER, SELFPAY | PROVIDERS: PCP Physician Assistant; Visit Provider Nurse Practitioner Family ==

== ENCOUNTER 2023-05-12 07:00 | Outpatient (RCR) | payer OTHER, SELFPAY | END 2023-06-30 08:04 | disposition home or self-care (01) | LOC: HO.PT 07:00 | PROVIDERS: PCP Physician Assistant; Visit Provider Registered Nurse Emergency | DX: M51.9 Unspecified thoracic, thoracolumbar and lumbosacral intervertebral disc disorder (principal); M54.50 Low back pain, unspecified | CPT/HCPCS: 97014; 97110; 97140; 97162; 97530; 97535 ==

== ENCOUNTER 2023-05-12 16:48 | Outpatient (REF) | payer OTHER, SELFPAY ==
[2023-05-13 08:35] LABS: HBS Num1 > 1000.00 mIU/mL (0-7.99); HBc Num1 0.07 S/CO (0.00-0.79); HBsAGNum1 0.28 S/CO (0.00-0.99); Hepatitis B Core Antibody Nonreactive (Nonreactive); Hepatitis B Surface Antigen Negative (Negative); ~HepC Num1 0.35 S/CO (0.00-0.79); ~Hepatitis B Surface Antibody REACTIVE (Nonreactive); ~Hepatitis C Antibody Nonreactive (Nonreactive)
== END 2023-05-12 16:49 | disposition home or self-care (01) ==
LOC: HO.LAB 16:48
PROVIDERS: PCP Physician Assistant; Visit Provider Physician Assistant
DX: Z11.3 Encounter for screening for infections with a predominantly sexual mode of transmission (principal)
CPT/HCPCS: 36415; 86704; 86706; 86803; 87340

== ENCOUNTER 2023-05-14 08:22 | Outpatient (AMB) | payer OTHER, SELFPAY ==
[2023-05-14 08:33] VITALS: BP 128/72; PULSE 69; O2SAT 98; BMI 27.2
--- NOTE | 2023-05-14 08:33 | A.OFFPC_ITS ---
Vital Signs 05/14/23 08:33 Height 5 ft 11 in Weight 195 lb BMI 27.2 BP 128/72 Blood Pressure Location Lt brachial Position Sitting Pulse 69 Pulse Source Pulse Oximeter Pulse Oximetry (%) 98 Oxygen Delivery Method Room Air Intake Visit Reasons: f/u HTN Allergies No Known Allergies [No Known Allergies*] Allergy (Verified 05/14/23 08:40) N.K.D.A. Allergy (Unknown, Uncoded 05/14/23 08:34) Unknown Medication List - Last Reconciled 05/14/23 by Dean Willis PA-C cetirizine 10 mg PO DAILY 60 days cyclobenzaprine 5 mg PO Q12H PRN lidocaine 5% 1 patch topical DAILY 30 days lisinopril 5 mg PO DAILY 30 days naproxen 250 mg PO BID tramadol 50 mg PO DAILY 10 days Tobacco use date assessed: 03/10/23 Dental Screening Dental Screen Date: 03/10/23 HPI f/u HTN HPI Details Patient is a 42-year-old male here today for follow-up visit. Patient has a past medical history significant for generalized anxiety disorder, nephrolithiasis. Hypertension: Has started lisinopril 5 mg to which he takes several times a week. He reports his chest pain has essentially resolved. Also his home stress has gotten much better FERN:? Has been using Clonidine 0.1 mg on a p.r.n. basis with good effect of reducing his anxiety.? City is triggered by family issues.. He is interested in cognitive behavioral therapy . Lumbar disc disease: He is status post lumbar disc surgery in 2006. He continues to have lower lumbar spine pain to which he uses tramadol and or cyclobenzaprine on an as needed basis. He has followed up with pain management and is considering a pain reduction modality. .. 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 1. Little interest or pleasure in doing things: not at all 2. Feeling down, depressed, or hopeless: not at all 3. Trouble falling or staying asleep, or sleeping too much: not at all 4. Feeling tired or having little energy: not at all 5. Poor appetite or overeating: not at all 6. Feeling bad about yourself - or that you are a failure or have let yourself or your family down: not at all 7. Trouble concentrating on things, such as reading the newspaper or watching television: not at all 8. Moving or speaking so slowly that other people could have noticed. Or the opposite - being so fidgety or restless that you have been moving around a lot more than usual: not at all 9. Thoughts that you would be better off or of hurting yourself in some way: not at all Total score: 0 Depression Screening Interpretation: Negative Depression Screening Done: Yes Source: Developed by Drs. Alejandro Joseph, Krystina Askew, Lopez Ellison and colleagues, with an educational jose from [employer]. Thrive Questionnaire Date Thrive assessed: 03/10/23 AUDIT C Alcohol Use Questionnaire (AUDIT-C) 1. How often do you have a drink containing alcohol?: 2-4 times a month 2. How many drinks containing alcohol do you have on a typical day when you are drinking?: 3 or 4 3. How often do you have six or more drinks on one occasion?: Never Total Score: 3 FERN-7 AMB Questionnaire FERN-7 Date FERN - 7 assessed: 03/10/23 Source: Developed by Drs. Alejandro Joseph, Krystina Askew, Lopez Ellison and colleagues, with an educational jose from [employer]. Review of Systems Const Denies headache(s) Eyes Denies loss of vision ENT Denies vertigo, Denies dizziness, Denies headache(s) and Denies sore throat Card Denies chest pain, Denies leg edema and Denies lightheadedness Resp Denies cough, Denies hemoptysis and Denies wheezing GI Denies abdominal pain, Denies melena, Denies constipation, Denies diarrhea and Denies vomiting Denies dysuria, Denies urinary frequency and Denies urinary urgency Musc Denies arthralgias, Denies joint swelling, Denies numbness and Denies tingling Neuro Denies Abnormal speech present, Denies behavioral changes, Denies vertigo, Denies dizziness, Denies headache(s), Denies loss of vision, Denies memory loss, Denies numbness and Denies tingling Psych Denies anxiety, Denies behavioral changes, Denies depression, Denies memory loss and Denies panic attacks Chente/Lymph Denies easy bleeding and Denies easy bruising Aller/Immun Denies wheezing Physical exam (Primary Care) Vital Signs: Last Vital Signs Pulse 69 05/14/23 08:33 BP 128/72 05/14/23 08:33 Pulse Ox 98 05/14/23 08:33 Oxygen Delivery Method Room Air 05/14/23 08:33 BMI result Body Mass Index 27.2 Tobacco/Smoking Status: Tobacco use Status Tobacco use date assessed 03/10/23 05/14/23 08:37 Patient Tobacco Use Status Never used Tobacco 05/14/23 08:37 e-Cigarette/Vaping Use Never Used 05/14/23 08:37 PHQ-9: PHQ-9 Score PHQ-9: Total score 0 05/14/23 08:43 Depression Screening Interpretation: Negative Thrive Assessment: Date of Thrive Assessment Date Thrive assessed 03/10/23 05/14/23 08:37 Const General: healthy appearing, no acute distress, alert and awake Nutritional Appearance: well nourished Orientation/consciousness: oriented to person, oriented to place and oriented to time HENMT Ears: TM's normal bilaterally General nose exam: Normal nasal mucous membranes and turbinates present Eyes Conjunctivae: conjunctivae normal Sclerae: sclerae normal Pupils: Equal, round and reactive pupils present Neck Neck: Yes no lymphadenopathy and Yes no JVD Thyroid: Thyroid normal Carotids: no bruits Resp Effort & Inspection: normal respiratory effort and not tachypneic Auscultation: no crackles, no rales, no rhonchi and no wheezes Cardio Rate: regular rate Rhythm: regular rhythm Heart sounds: no murmurs and normal S1 and S2 GI Palpation (GI): Soft to palpation, nontender, no hepatomegaly and no splenomegaly Auscultation: normal bowel sounds Skin General skin exam: no rashes or lesions noted and dry skin Neuro General: oriented to person, oriented to place and oriented to time Cranial nerves: Yes Equal, round and reactive pupils present Speech: No Abnormal speech present Gait exam (Neuro): Normal gait present Motor exam (neuro): no tremor noted Extrem Right upper extremity: full ROM Left upper extremity: full ROM Right lower extremity: full ROM; no edema Left lower extremity: full ROM; no edema Psych Mental Status: mental status grossly normal Speech and movement: Normal speech and movement present Affect: normal affect Attitude: cooperative Thought process: Normal thought process present Assessment and Plan Assessment & Plan (1) FERN (generalized anxiety disorder): Code(s): F41.1 - Generalized anxiety disorder Plan: He does report his anxiety now well controlled. Rarely has to use clonidine. Reports his family issues at home have been much better. Having less chest pain. He is interested in starting mental health therapy. (2) GERD (gastroesophageal reflux disease): Code(s): K21.9 - Gastro-esophageal reflux disease without esophagitis Qualifiers: Esophagitis presence: without esophagitis Qualified Code(s): K21.9 - Gastro-esophageal reflux disease without esophagitis Plan: His GERD symptoms have been well managed with lifestyle modification. Does not use any PPI therapy at this time. (3) Lumbar spine pain: Code(s): M54.5 - Low back pain Plan: Has a history of lumbar disc disease and had surgery in 2007 to repair disc. Has followed up with [place] pain management is considering another cortisone injection. (4) HTN (hypertension): Code(s): I10 - Essential (primary) hypertension Qualifiers: Hypertension type: primary hypertension Qualified Code(s): I10 - Essential (primary) hypertension Plan: Blood pressure acceptable today in office. He does take lisinopril 5 mg several times a week. He reports less chest pain to which he was attributing to stress at home. Would like to continue on current dose of lisinopril 5 mg. Advised to monitor blood pressure at home with goal blood pressure to be below 140/90. (5) Chest pain: Code(s): R07.9 - Chest pain, unspecified Qualifiers: Chest pain type: precordial pain Qualified Code(s): R07.2 - Precordial pain Plan: Has resolved Orders: Orders Comprehensive [place]. Panel Fast Today I10 - Essential (primary) hypertension Vitamin D 25-OH Total Today E55.9 - Vitamin D deficiency, unspecified Medications: Changed From tramadol 50 mg PO DAILY 10 days 10 tabs 0RF M47.816 - Spondylosis without myelopathy or radiculopathy, lumbar region To tramadol 50 mg PO TID 7 days PRN 15 tabs 0RF pain M47.816 - Spondylosis without myelopathy or radiculopathy, lumbar region From lisinopril 5 mg PO DAILY 30 days 30 tabs 1RF I10 - Essential (primary) hypertension To lisinopril 5 mg PO DAILY 90 days 90 tabs 1RF I10 - Essential (primary) hypertension Coding Level of Care Code Est Pt Level 4 (14219) Diagnoses FERN (generalized anxiety disorder) F41.1 Gastroesophageal reflux disease without esophagitis K21.9 Esophagitis presence: without esophagitis Lumbar spine pain M54.5 Primary hypertension I10 Hypertension type: primary hypertension Precordial pain R07.2 Chest pain type: precordial pain
== END 2023-05-14 08:56 | disposition home or self-care (01) ==
PROVIDERS: PCP Physician Assistant; Visit Provider Physician Assistant
DX: F41.1 Generalized anxiety disorder (principal); K21.9 Gastro-esophageal reflux disease without esophagitis; M54.50 Low back pain, unspecified; I10 Essential (primary) hypertension; R07.2 Precordial pain
CPT/HCPCS: 99214

== ENCOUNTER 2023-07-25 13:48 | Day surgery (SDC) | payer OTHER, SELFPAY ==
[2023-07-23 11:41] VITALS: BMI 27.2
--- NOTE | 2023-07-23 12:38 | P.CONAN_ITS ---
Documented by User: Annabella Givens NP 07/23/23 12:42 HPI - Anesthesia Eval Consult details Narrative: 42yo M for Biateral L5 Transforaminal Epidural Steroid Injection PMFSH Active Problems Active Problems: All Active Problems Need for MMR vaccine (Acute) Right hand pain (Acute) Right wrist pain (Acute) Lumbar facet arthropathy (Acute) Post laminectomy syndrome (Acute) Lumbar radiculopathy (Acute) Neuropathy (Acute) Chest pain (Acute) Right anterior knee pain (Acute) HTN (hypertension) (Acute) Allergic rhinitis (Acute) COVID-19 (Acute) Anemia (Acute) Bronchitis (Acute) GERD (gastroesophageal reflux disease) (Acute) Sprain of ligament of cervical spine region (Acute) Lumbar spine pain (Acute) Testicular pain, left (Acute) Annual physical exam (Acute) Vitamin D deficiency (Acute) Renal colic (Acute) FERN (generalized anxiety disorder) (Acute) Screening for hypercholesterolemia (Acute) Screening for hypothyroidism (Acute) Screening for diabetes mellitus (DM) (Acute) Elevated uric acid in blood (Acute) Right shoulder pain (Acute) Chronic lower back pain (Acute) Past Medical History Medical History Neuropathy Anemia HTN (hypertension) GERD (gastroesophageal reflux disease) Anxiety Elevated uric acid in blood Right shoulder pain Chronic lower back pain Family History Family History Father Colon cancer, Onset Age: 47 CAD (coronary artery disease), Onset Age: 55 Mother Ovarian cancer Sister Arthritis Surgical History Surgical History (Updated 07/23/23 @ 11:39 by Priyanka Loyola RN) Hx of lithotripsy Hx of circumcision Hx of hemorrhoidectomy Hx of cystoscopy History of esophagogastroduodenoscopy (EGD) H/O colonoscopy History of lumbar surgery Social History Social History Housing: House Alcohol intake: current Alcohol intake frequency: holidays/special occasions only Patient Tobacco Use Status: Never used Tobacco e-Cigarette/Vaping Use: Never Used Second Hand Smoke Exposure: No Are you DNR?: No Advance Directives: No Advance Directives Information Provided: Yes Nutrition Risks: No Nutritional Risk service: No Current occupational status: employed Current occupation: [employer]- remote from home Current occupational exposures/hazards: No Cognitive needs: No Hearing needs: No Vision needs: Yes Meds Allergies Allergy/AdvReac Type Severity Reaction Status Date / Time No Known Allergies Allergy Verified 07/25/23 14:12 Exam Height,Weight and Vital Signs: Height 5 ft 11 in Weight 88.451 kg Narrative Narrative: EKG 02/2023 Vent. Rate : 061 BPM Atrial Rate : 061 BPM P-R Int : 136 ms QRS Dur : 088 ms QT Int : 394 ms P-R-T Axes : 035 058 034 degrees QTc Int : 396 ms Normal sinus rhythm Normal ECG When compared with ECG of 07-MAR-2015 12:58, Sinus rhythm has replaced Ectopic atrial rhythm Assessment and Plan Assessment Anesthesia Assessment: Chart Reviewed Documented by User: Joe Marroquin MD 07/25/23 14:39 PMFSH Past Medical History Medical History Neuropathy Anemia HTN (hypertension) GERD (gastroesophageal reflux disease) Anxiety Elevated uric acid in blood Right shoulder pain Chronic lower back pain Family History Family History Father Colon cancer, Onset Age: 47 CAD (coronary artery disease), Onset Age: 55 Mother Ovarian cancer Sister Arthritis Family history of problems with anesthesia: No Surgical History Surgical History (Updated 07/23/23 @ 11:39 by Priyanka Loyola RN) Hx of lithotripsy Hx of circumcision Hx of hemorrhoidectomy Hx of cystoscopy History of esophagogastroduodenoscopy (EGD) H/O colonoscopy History of lumbar surgery History of Problems with Anesthesia: No Social History Social History Housing: House Alcohol intake: current Alcohol intake frequency: holidays/special occasions only Patient Tobacco Use Status: Never used Tobacco e-Cigarette/Vaping Use: Never Used Second Hand Smoke Exposure: No Are you DNR?: No Advance Directives: No Advance Directives Information Provided: Yes Nutrition Risks: No Nutritional Risk service: No Current occupational status: employed Current occupation: [employer]- remote from home Current occupational exposures/hazards: No Cognitive needs: No Hearing needs: No Vision needs: Yes Meds Allergies Allergy/AdvReac Type Severity Reaction Status Date / Time No Known Allergies Allergy Verified 07/25/23 14:12 Exam Airway Mallampati Class: II TM Dist: >3cm Neck ROM: Full Loose/Missing/Broken Teeth: No Heart: ok Lungs: ok Assessment and Plan Assessment Anesthesia Assessment: Anesthesia Plan Discussed Final Anesthetic Review Family History of Problems with Anesthesia: No History of Problems with Anesthesia: No NPO: Yes ASA Class: II Final Preanesthetic Review: No Changes in Pt Med Stat, Meds/Allgs Chart Reviewed, Consent Obtained/Reviewed and Anes Risks/Benef Reviewed Patient Risk: Low Procedure Risk: Intermediate Anesthetic Plan Anesthetic Plan: MAC: and Agree w/ Assess. and Plan Disposition: Standard PACU
--- NOTE | ~2023-07-25 | FL_ITS ---
EXAMINATION: XR FLUOROSCOPY WITH IMAGES CLINICAL INFORMATION: L5 bilateral transforaminal epidural steroid injection. COMPARISON: None available. TECHNIQUE: Fluoroscopy Supervised By: Dr. Cruz. Fluoroscopy Time: 55.9 sec. Cumulative Dose: 16.699 mGy. DAP: 7.2639 Gycm2. Images: 2. FINDINGS: Intraoperative fluoroscopy and spot films were performed during a procedure in the OR. Bilateral needles are seen in the epidural space via transforaminal approach bilaterally at L5. Contrast media can be seen in the epidural space. Please correlate with Dr. Cruz's report for complete details. FL/FL guidance in OR IMPRESSION: Intraoperative fluoroscopy and spot films were obtained. Please see Dr. Cruz's report for complete details.
--- OUTSIDE RECORDS SUMMARY | 2023-07-25 13:50 | XMS_ITS | Continuity of Care Document ---
Author Organization [facility] Address [address] [place] [id number]- Care Team Providers Care Kennel Manager Dog Track Name Role Phone Dean Bravo Primary Care Physician [phone] Encounter [facility] [place] Date(s): 05/21/21 - 06/20/21 [facility] [address] [place] [address]- [place] Allergies, Adverse Reactions, Alerts No Known Medication Allergies Medications Ibuprofen Refills 0, Maintenance, 05/30/20 8:20:00 EDT, Partial fill upon patient request if the prescriptionis for a schedule II opioid drug. Start Date: 05/30/20 Status: Ordered Naproxen By Mouth, 0 Refills, Maintenance, 05/30/20 8:20:00 EDT, Partial fill upon patient request if the prescription is for a schedule II opioid drug. Start Date: 05/30/20 Status: Ordered Social History Social History Type Response Smoking Status Never (less than 100 in lifetime) entered on: 05/30/20 Sex
--- OUTSIDE RECORDS SUMMARY | 2023-07-25 13:50 | XMS_ITS | Continuity of Care Document ---
Author Organization [facility] Address [address] [place] [address]- Care Team Providers Care Supervisor Lace Tearing Name Role Phone Dean Bravo Primary Care Physician [phone] Encounter [facility] [place] Date(s): 04/06/20 - 05/06/20 [facility] [address] [place] [address]- Allergies, Adverse Reactions, Alerts No Known Medication Allergies Medications amLODIPine 2.5 mg oral tablet 2.5 mg, 1, tablet, By Mouth, Daily, Refills 0, Maintenance, 12/24/19 14:14:00 EST, Partial fill upon patient request Start Date: 12/24/19 Status: Ordered famotidine 20 mg oral tablet 20 mg, 1, tablet, By Mouth, 2 times a day, Refills 0, Maintenance, 12/24/19 14:15:00 EST, Partial fill upon patient request Start Date: 12/24/19 Status: Ordered Golytely - oral powder for reconstitution See Instructions, as directed, # 1 each, 0 Refills, Maintenance, 01/11/20 14:41:00 EST, [id number], Ok to substitue for PEG, Nulytely, Gavaltye, etc, as directed, 180, cm, 12/24/19 14:11:00 EST, Height Start Date: 01/11/20 Status: Ordered Multivitamin Daily, 0 Refills, Maintenance, 12/01/18 9:20:40 EDT Start Date: 12/01/18 Status: Ordered
--- OUTSIDE RECORDS SUMMARY | 2023-07-25 13:50 | XMS_ITS | Continuity of Care Document ---
Author Organization [facility] Address [address] [place] [address]- Care Team Providers Care Fitness Services Manager Name Role Phone Dean Bravo Primary Care Physician [phone] [facility] [id number] Date(s): 09/10/22 - 01/08/23 [facility] [address] [place] [address]- Attending Physician: Kvng Jennings MD Admitting Physician: Kvng Jennings MD Referring Physician: Dean Bravo Allergies, Adverse Reactions, Alerts No Known Medication Allergies Medications Carafate 1 gm oral tablet 1 Gm, 1, tablet, By Mouth, 4 times a day, # 120 tablet, Refills 5, Tot. Refills 5, Maintenance, 07/10/22 11:58:00 EDT, Route to Pharmacy Electronically, [facility] #[id number], Partial fill uponpatient request if the prescription is for a schedu... Start Date: 07/10/22 Status: Ordered Famotidine 0 Refills, Maintenance, 06/10/22 11:28:00 EDT, Partial fill upon patient request if the prescription is for a schedule II opioid drug. Start Date: 06/10/22 Status: Ordered Flomax 0.4 mg oral capsule 0.4 mg, 1, capsule, By Mouth, Daily, # 30 capsule, Refills 0, Tot. Refills 0, Maintenance, 07/11/2309:34:00 EDT, Route to Pharmacy Electronically, [facility] #[id number], Partial fill upon patient request if the prescription is for a schedule II... Start Date: 07/11/22 Status: Ordered Ibuprofen Refills 0, Maintenance, 05/30/20 8:20:00 EDT, Partial fill upon patient request if the prescriptionis for a schedule II opioid drug. Start Date: 05/30/20 Status: Ordered Naproxen By Mouth, 0 Refills, Maintenance, 05/30/20 8:20:00 EDT, Partial fill upon patient request if the prescription is for a schedule II opioid drug. Start Date: 05/30/20 Status: Ordered omeprazole 20 mg oral delayed release tablet 1 tablet = 20 mg, By Mouth, 2 times a day, # 180 tablet, 0 Refills, Maintenance, 06/11/22 12:06:00 EDT, EC Tablet, [facility] #[id number], Partial fill upon patient request if the prescription is for a schedule II opioid drug., 180, cm, 06/10/22... Start Date: 06/11/22 Status: Ordered Social History Social History Type Response Smoking Status Never (less than 100 in lifetime) entered on: 05/30/20 Sex Patient Care team information Care Team Personnel Name: Dean Bravo Position: Reference Physician Member Role: PCP Address: Address: [address] [place] [address]- Care Team Related Persons Name: KATHRYN LAGUNAS Address: [place], [place] Name: YRIS LAGUNAS Address: home [address] [place] [id number]
--- OUTSIDE RECORDS SUMMARY | 2023-07-25 13:50 | XMS_ITS | Continuity of Care Document ---
Author Organization [facility] Address [address] [place] [address]- Care Team Providers Care Client Relations Representative Name Role Phone Dean Bravo Primary Care Physician [facility] [id number] Date(s): 01/14/23 - 02/14/23 [facility] [address] [place] [address]- Attending Physician: Joe Schrader MD Admitting Physician: Joe Schrader MD Referring Physician: Randy Ferraro Allergies, Adverse Reactions, Alerts No Known Medication Allergies Medications Carafate 1 gm oral tablet 1 Gm, 1, tablet, By Mouth, 4 times a day, # 120 tablet, Refills 5, Tot. Refills 5, Maintenance, 07/10/22 11:58:00 EDT, Route to Pharmacy Electronically, [facility] #[id number], Partial fill uponpatient request if the prescription [...] Maintenance, 07/11/2309:34:00 EDT, Route to Pharmacy Electronically, [facility] #[id number], Partial fill upon patient request if the [...] Refills, Maintenance, 06/11/22 12:06:00 EDT, EC Tablet, [facility] #[id number], Partial fill upon patient request if the prescription is for a schedule II opioid drug., 180, cm, 06/10/22... Start Date: 06/11/22 Status: Ordered Social History Social History Type Response Smoking Status Never (less than 100 in lifetime) entered on: 05/30/20 Sex Patient Care team information Care Team Personnel Name: Dean Bravo Position: Reference Physician Member Role: PCP Address: Address: [address] [place] [address]- Care Team Related Persons Name: KATHRYN LAGUNAS Address: [place], [place] Name: YRIS LAGUNAS Address: home [address] [place] [id number]
--- OUTSIDE RECORDS SUMMARY | 2023-07-25 13:50 | XMS_ITS | Continuity of Care Document ---
Author Organization [facility] Address [address] [place] [address]- Care Team Providers Care Proof Machine Operator Name Role Phone Dean Bravo Primary Care Physician [place] [facility] [place] Date(s): 12/24/19 - 01/23/20 [facility] [address] [place] [id number] Attending Physician: Keisha Gr Admitting Physician: Keisha Gr Referring Physician: AdmtrKeisha Allergies, Adverse Reactions, Alerts No Known Medication [...] each, 0 Refills, Maintenance, 01/11/20 14:41:00 EST, [facility] #[id number], Ok to substitue for PEG, Nulytely, Gavaltye, etc, as directed, 180, cm, 12/24/19 14:11:00 EST, Height Start Date: 01/11/20 Status: Ordered Multivitamin Daily, 0 Refills, Maintenance, 12/01/18 9:20:40 EDT Start Date: 12/01/18 Status: Ordered
--- OUTSIDE RECORDS SUMMARY | 2023-07-25 13:50 | XMS_ITS | Continuity of Care Document ---
Author Organization [facility] ter Address [address] [place] [address]- Care Team Providers Care Market Development Trainer Name Role Phone Dean Bravo Primary Care Physician Encounter [facility] Date(s): 07/11/22 - 07/11/[address] [address]- Encounter Diagnosis Kidney stone(Final) - 07/11/22 Discharge Disposition: A-D/C Home Attending Physician: Beni Castle MD Admitting Physician: Beni Castle MD Referring Physician: Not on Staff, Referring MD Allergies, Adverse Reactions, Alerts No Known Medication Allergies Medications Carafate 1 gm oral tablet 1 Gm, 1, tablet, By Mouth, 4 times a day, # 120 tablet, Refills 5, Tot. Refills 5, Maintenance, 07/10/22 11:58:00 EDT, Route to Pharmacy Electronically, [facility] #[id number], Partial fill uponpatient request if the prescription [...] Maintenance, 07/11/2309:34:00 EDT, Route to Pharmacy Electronically, [facility] #[id number], Partial fill upon patient request if the prescription is for a schedule II... Start Date: 07/11/22 Status: Ordered Ibuprofen Refills 0, Maintenance, 05/30/20 8:20:00 EDT, Partial fill upon patient request if the prescriptionis for a schedule II opioid drug. Start Date: 05/30/20 Status: Ordered MorPHINE Inj 4 mg, Injection, IV Push Slowly, Every 5 minutes for 3 doses/times, PRN for Pain , Moderate, and SBP greater than 100, Routine, 07/11/22 9:13:00 EDT, Stop date Limited # of times Start Date: 07/11/22 Stop Date: 07/11/22 Status: Discontinued Naproxen By Mouth, 0 Refills, Maintenance, 05/30/20 8:20:00 EDT, Partial fill upon patient request if the prescription is for a schedule II opioid drug. Start Date: 05/30/20 Status: Ordered omeprazole 20 mg oral delayed release tablet 1 tablet = 20 mg, By Mouth, 2 times a day, # 180 tablet, 0 Refills, Maintenance, 06/11/22 12:06:00 EDT, EC Tablet, [facility] #[id number], Partial fill upon patient request if the prescription is for a schedule II opioid drug., 180, cm, 06/10/22... Start Date: 06/11/22 Status: Ordered oxyCODONE 5 mg oral tablet 5 mg, 1, tablet, By Mouth, Every 6 hours, PRN, # 12 tablet, Refills 0, Tot. Refills 0, Acute 07/14/22 21:00:00 EDT, for pain, 07/11/22 10:34:00 EDT, Route to Pharmacy Electronically, [facility] #[id number], Partial fill upon patient request if th... Start Date: 07/11/22 Stop Date: 07/14/22 Status: Ordered Results Radiology Reports * Exam Date Time Procedure Performing Provider Status 07/11/22 9:[address] Abd/Pelvis W/ IV Contrast Only Colon , Melisa; Auth (Verified) Notes: (CT Abd/Pelvis W/ IV Contrast Only) Reason For Exam: LLQ abdominal pain;Other: RESULT: CT Abd/Pelvis W/ IV Contrast Only CT Abd/Pelvis W/ IV Contrast Only Hx of Present Illness: Left lower quadrant abdominal pain. TECHNIQUE: Spiral CT through the abdomen and pelvis with IV contrast formatted in 3 planes. 100 cc of Omnipaque 300 was administered intravenously. This study was performed without oral contrast. Weight-based protocol using automatic tube modulation was used to optimize exposure parameters. CTDIvol Body: 17.90 mGy, DLP Body: 953 mGy*cm. COMPARISON: 12/01/2020 FINDINGS: Crew Director View Findings, Lines and Tubes: None. Visualized Chest: Lung bases are clear. No pleural effusion. The heart is normal in size. No pericardial effusion. Diaphragm: Normal. Liver: Normal. Gallbladder: No CT evidence of gallbladder pathology. Bile ducts: No biliary ductal dilation. Spleen: Normal. Pancreas: Normal. Adrenal glands: Normal. Kidneys and ureters: Right kidney is normal. Mild left hydroureteronephrosis and perinephric stranding. 4 mm calculus at the left UVJ. No additional intrarenal calculi identified Bladder: Normal. Reproductive organs: Unremarkable. Stomach, small bowel, and large bowel: Scattered colonic diverticula without diverticulitis. No obstruction or inflammatory change. Appendix: Normal. Peritoneum and retroperitoneum: No ascites or pneumoperitoneum. No omental or mesenteric lesions. Lymph nodes: No enlarged lymph nodes. Blood vessels: Normal. No aneurysm. No evidence of venous thrombosis. Abdominal and pelvic wall: Unremarkable. Bones: No acute abnormality. IMPRESSION: 4 mm obstructing calculus at the left UVJ. WSN: [id number] Ordering Physician: Unique Driscoll Dictated By: Gustavo Fajardo MD Dictated Date/Time: 07/11/22 9:43 am Reviewed By: Gustavo Fajardo MD Signed By: Gustavo Fajardo MD Signed Date/Time: 07/11/22 9:43 am Transcribed By: TANK Transcribed Date/Time: 07/11/22 9:39 am Vital Signs Most recent to oldest [Reference Range]: 1 2 3 Height 183.5 cm (07/11/22 11:00 AM) 183.5 cm (07/11/22 6:51 AM) Oxygen Saturation [94-100 %] 100 % (07/11/22 11:00 AM) 100 % (07/11/22 10:46 AM) 100 % (07/11/22 6:51 AM) Pulse Rate [55-90 bpm] 67 bpm (07/11/22 11:00 AM) 68 bpm (07/11/22 10:46 AM) 70 bpm (07/11/22 6:51 AM) Blood Pressure [90-138/55-84 mm Hg] 167/104mm Hg *H* (07/11/22 11:00 AM) 142/75mm Hg *H* (07/11/22 10:46 AM) 157/99mm Hg *H* (07/11/22 6:51 AM) Respiratory Rate [16-30 br/min] 16 br/min (07/11/22 11:00 AM) 16 br/min (07/11/22 10:46 AM) 18 br/min (07/11/22 8:48 AM) Temperature [96.8-100.4 DegF] 97.9 DegF (07/11/22 11:00 AM) 97.3 DegF (07/11/22 6:51 AM) Mode of Delivery (Oxygen) Room air (07/11/22 11:00 AM) Room air (07/11/22 6:51 AM) Room air (07/11/22 6:34 AM) Blood pressure sites Arm, left (07/11/22 11:00 AM) Arm, left (07/11/22 10:46 AM) Arm, left (07/11/22 6:51 AM) Temperature Route Oral (07/11/22 11:00 AM) Oral (07/11/22 6:51 AM) Dry Weight 88.5 kg (07/11/22 11:00 AM) 88.5 kg (07/11/22 6:51 AM) Dry Weight Obtained Via Standing scale (07/11/22 6:51 AM) Social History Social History Type Response Smoking Status Never (less than 100 in lifetime) entered on: 05/30/20 Sex Note * Unique Driscoll NP: PERFORM, SIGN, VERIFY Event Display: Patient Education Handout Authored Date: [id number] * Unique Driscoll NP: PERFORM Event Display: Patient Education Leaflets Authored Date: [id number] Kidney Stone with Pain ?? [id number] Kidney Stone with Pain The sharp cramping pain on either side of your lower back and nausea or vomiting that you have are because of??a small stone that has formed in the kidney. It's now passing down a narrow tube (ureter) on its way to your bladder. Once the stone reaches your bladder, the pain will often decrease. Butit may come back as the stone continues to pass out of the bladder and through the urethra. The ston e may pass in your urine stream in 1 piece. The size may be 1/16 inch to 1/4 inch (1 mm to 6 mm). Or the stone may break up into tad-like fragments that you may not even notice. Once you have had a kidney stone, you may be at risk of getting another one in the future. There are 4 types of kidney stones. Eighty percent are calcium stones???mostly calcium oxalate but also somewith calcium phosphate. The other 3 types include uric acid stones, struvite stones (from a preceding infection) and, rarely, cystine stones. Most stones will pass on their own. But they may take from a few hours to a few days. Sometimes thestone is too large to pass by itself. In that case, the healthcare provider will need to use??otherways to remove the stone. These methods include: ??? Shock Wave Lithotripsy. This??noninvasive procedure uses high energy sound waves to break up the stone and allow it to easily pass. ??? Ureteroscopy. This??procedure inserts a tool through the urethra and bladder and into the ureter to pull out the stone. This procedure is done under anesthesia. ??? Surgery. You may need surgery to remove the stone. Home care The following are general care guidelines: ??? Drink plenty of fluids. This means at least 12, 8-ounce glasses of fluid???mostly water???a day. ??? Each time you pee (urinate), do so in a jar. Pour the urine from the jar through the strainer and into the toilet. Continue doing this until 24 hours after your pain stops. By then, if there was a kidney stone, it should pass from your bladder. Some stones dissolve into sand-like particles and pass right through the strainer. In that case, you won???t ever see a stone. ??? Save any stone that you find in the strainer and bring it to your healthcare provider for a detailed exam. It may be possible to stop certain types of stones from forming. Forthis reason, it's important to know what kind of stone you have. ??? Try to stay as active as possible. This will help the stone pass. Don't stay in bed unless your pain keeps you from getting up. You may notice a red, pink, or brown color to your urine. This is normal while passing a kidney stone.??? If you develop pain, you may take ibuprofen or naproxen for pain, unless another medicine was pr escribed.??Talk with your healthcare provider before using these medicines if you have chronic liver or kidney disease. Or if you've??had a stomach ulcer or digestive bleeding. ?? Preventing??stones Each year for the next 5 to??7 years,??you are at risk that??a??new stone will form. Your risk is a50% chance over this time period.??The risk is higher??if you have a family history of kidney stones or have certain chronic illnesses like high blood pressure, obesity, or??diabetes.?Making changes to your lifestyle and diet may lower your??risk for another stone. Most kidney stones are made of calcium. The following is advice for preventing another??calcium stone.??If you don???t know the type of stone you have, follow this advice until the cause of your stone is found. Things that help: ??? The most important thing you can do is to drink plenty of fluids each day. See home care above.? Eat foods that contain phytates. These include??wheat, rice, rye, barley, and beans. Phytates are substances that may lower your risk for??any type of stone to form. ??? Eat more fruits and vegetables.??Choose those that are??high in potassium. ??? Eat foods high in natural citrate, such as??fruit and low-sugar fruit juices, such as lemon juice. Citrate can protect againstkidney stones because it stops crystals from turning into stones ??? Having too little calcium in your diet can put you at risk for??calcium??kidney stones. Eat a normal amount of calcium in your diet and talk??with your healthcare provider??if you are taking calcium supplements. Cutting back on your calcium intake may raise your risk.??New research shows that eating calcium-rich and oxalate-richfoods together lowers your risk for stones by binding the minerals in the stomach and intestines before they can reach the kidneys. ? Limit salt intake to 2??grams (1??teaspoon) per day. High sodium in your diet will increase the amount of calcium sent into your urine. This can increase your chances of developing another stone. Use limited amounts when cooking, and don???t add salt at the table.??Processed and canned foods are usually high in salt.? Spinach, rhubarb, peanuts, cashews, almonds, grapefruit, and grapefruit juice are all high oxalate foods. You should limit how much of these you eat or??eat them with??calcium-rich foods. These include dairy products, dark leafy greens, soy products, and calcium-enriched foods. ??? Reducing the amount of animal meat, shellfish, and high protein foods in your diet may lower your risk for uric acid stones. These foods have high amounts of a natural chemical compound called purines. Eating a lot of food with purines can make your body produce more uric acid. Limiting alcohol is also recommended to decrease uric acid production. ??? Limit the amount of sugar (sucrose) and soft drinks with fructose in??your??diet.? If you take vitamin C as a supplement, don't take more than 1,000 mg a day. ??? A dietitian or your healthcareprovider can give you??information about??changes in your diet that will help prevent more??kidney stones from forming. ?? Follow-up care Follow up with your??healthcare provider, or as advised,??if the pain lasts more than 48 hours. Talk with your provider about urine and blood tests to find out the cause of your stone. If you had an X-ray, CT scan, or other diagnostic test, you will be told of any new findings that may affect your care. ?? Call 911 Call 911 if you have: ??? Weakness, dizziness, or fainting ?? When to get medical care Call your healthcare provider right away if any of these occur: ??? Pain that is not controlled by the medicine given ??? Repeated vomiting or unable to keep down fluids ??? Fever of 100.4??F (38??C)or higher, or as advised by your provider ??? Passage of solid red or brown urine (can't see through it) or urine with lots of blood clots ??? Foul-smelling or cloudy urine ??? Unable to pee for 8 hours and increasing bladder pressure ?? Last Reviewed Date: 2021 ?? 5255-9691 [employer]. All rights reserved. This information is not intended as a substitute for professional medical care. Always follow your healthcare professional's instructions. ?? CT Abdomen and Pelvis W contrast IV * [facility] , CIS S: TRANSCRIGustavo Marsh MD: VERIFY Event Display: Result: Authored Date: [id number] CT Abd/Pelvis W/ IV Contrast Only Hx of Present Illness: Left lower quadrant abdominal pain. TECHNIQUE: Spiral CT through the abdomen and pelvis with IV contrast formatted in 3 planes. 100 cc of Omnipaque 300 was administered intravenously. This study was performed without oral contrast. Weight-based protocol using automatic tube modulation was used to optimize exposure parameters. CTDIvol Body: 17.90 mGy, DLP Body: 953 mGy*cm. COMPARISON: 12/01/2020 FINDINGS: Crew Director View Findings, Lines and Tubes: None. Visualized Chest: Lung bases are clear. No pleural effusion. The heart is normal in size. No pericardial effusion. Diaphragm: Normal. Liver: Normal. Gallbladder: No CT evidence of gallbladder pathology. Bile ducts: No biliary ductal dilation. Spleen: Normal. Pancreas: Normal. Adrenal glands: Normal. Kidneys and ureters: Right kidney is normal. Mild left hydroureteronephrosis and perinephric stranding. 4 mm calculus at the left UVJ. No additional intrarenal calculi identified Bladder: Normal. Reproductive organs: Unremarkable. Stomach, small bowel, and large bowel: Scattered colonic diverticula without diverticulitis. No obstruction or inflammatory change. Appendix: Normal. Peritoneum and retroperitoneum: No ascites or pneumoperitoneum. No omental or mesenteric lesions. Lymph nodes: No enlarged lymph nodes. Blood vessels: Normal. No aneurysm. No evidence of venous thrombosis. Abdominal and pelvic wall: Unremarkable. Bones: No acute abnormality. IMPRESSION: 4 mm obstructing calculus at the left UVJ. WSN: [id number] Ordering Physician: Unique Driscoll Dictated By: Gustavo Fajardo MD Dictated Date/Time: 07/11/22 9:43 am Reviewed By: Gustavo Fajardo MD Signed By: Gustavo Fajardo MD Signed Date/Time: 07/11/22 9:43 am Transcribed By: TANK Transcribed Date/Time: 07/11/22 9:39 am Patient Care team information Care Team Personnel Name: Dean Bravo Position: Reference Physician Member Role: PCP Address: Address: [address] [place] [address]- Name: Beni Castle MD Position: [facility] ED Medicine MD Member Role: Admitting Physician Address: Address: [address] [facility] [facility] [place] [address]- Name: Peggy Lane Position: [facility] ED TA [facility] Member Role: Rock Room Worker Name: Jonas Velez RN Position: [facility] ED RN W/OE and Tasks Member Role: Patient Care Provider Name: Unique Driscoll NP Position: [facility] Associate Professional Member Role: ED Physician Scheduler Maintenance Address: Address: [address] [facility] [place] [address]- Care Team Related Persons Name: KATHRYN LAGUNAS Address: home [place], [place] Name: YRIS LAGUNAS Address: home [address] [place] [address]
--- OUTSIDE RECORDS SUMMARY | 2023-07-25 13:50 | XMS_ITS | Continuity of Care Document ---
Author Organization [facility] ter Address [address] [place] [address]- Care Team Providers Care Sumo Wrestler Name Role Phone Dean Bravo Primary Care Physician [phone] Encounter [facility] Date(s): 04/07/20 - 04/07/[address] [address] Discharge Disposition: A-D/C Home Attending Physician: Joe Schrader MD Admitting Physician: Joe Schrader MD Referring Physician: Joe Schrader MD Allergies, Adverse Reactions, Alerts No Known [...] each, 0 Refills, Maintenance, 01/11/20 14:41:00 EST, [facility] #[id number], Ok to substitue for PEG, Nulytely, Gavaltye, etc, as directed, 180, cm, 12/24/19 14:11:00 EST, Height Start Date: 01/11/20 Status: Ordered Multivitamin Daily, 0 Refills, Maintenance, 12/01/18 9:20:40 EDT Start Date: 12/01/18 Status: Ordered Procedures Procedure Date Related Diagnosis Body Site Status Colonoscopy with polypectomy 04/07/20 Completed Vital Signs Most recent to oldest [Reference Range]: 1 2 3 Height 180 cm (04/07/20 7:31 AM) Weight 81 kg (04/07/20:31 AM) Oxygen Saturation [94-100 %] 99 % (04/07/20 9:40 AM) 99 % (04/07/20 9:30 AM) 96 % (04/07/20:21 AM) Pulse Rate [55-90 bpm] 63 bpm (04/07/20 9:30 AM) 74 bpm (04/07/20:21 AM) 69 bpm (04/07/20:31 AM) Body Mass Index [18.5-24.99] 25 *H* (04/07/20:31 AM) Blood Pressure [90-138/55-84 mm Hg] 115/73mm Hg (04/07/20 9:40 AM) 100/58mm Hg (04/07/20 9:30 AM) 99/51mm Hg (04/07/20 9:21 AM) Respiratory Rate [16-30 br/min] 14 br/min *L* (04/07/20 9:40 AM) 14 br/min *L* (04/07/20 9:30 AM) 19 br/min (04/07/20 9:21 AM) Temperature [96.8-100.4 DegF] 97.5 DegF (04/07/20:31 AM) Mode of Delivery (Oxygen) Room air (04/07/20 9:40 AM) Room air (04/07/20 9:30 AM) Room air (04/07/20 9:21 AM) Blood pressure sites Arm, left (04/07/20 9:40 AM) Arm, left (04/07/20 9:30 AM) Arm, left (04/07/20:21 AM) Temperature Route Temporal (04/07/20 7:31 AM)
--- OUTSIDE RECORDS SUMMARY | 2023-07-25 13:50 | XMS_ITS | Continuity of Care Document ---
Author Organization [facility] Address [address] [place] [address]- Care Team Providers Care Dryland Farmer Name Role Phone Dean Bravo Primary Care Physician [place] [facility] Date(s): 03/22/20 - 04/21/20 [facility] [address] [place] [id number] Allergies, Adverse Reactions, Alerts No Known Medication [...] each, 0 Refills, Maintenance, 01/11/20 14:41:00 EST, [facility] #[id number], Ok to substitue for PEG, Nulytely, Gavaltye, etc, as directed, 180, cm, 12/24/19 14:11:00 EST, Height Start Date: 01/11/20 Status: Ordered Multivitamin Daily, 0 Refills, Maintenance, 12/01/18 9:20:40 EDT Start Date: 12/01/18 Status: Ordered
--- OUTSIDE RECORDS SUMMARY | 2023-07-25 13:50 | XMS_ITS | Continuity of Care Document ---
Author Organization [facility] ter Address [address] [place] [address]- Care Team Providers Care Car Rental Deliverer Name Role Phone Dean Bravo Primary Care Physician [place] [facility] [place] 07[place] - 09/04/[address] [address] Attending Physician: Natalio Hutton MD, I Admitting Physician: Natalio Hutton MD, I Referring Physician: Natalio Hutton MD, I Allergies, Adverse Reactions, Alerts No Known Medication Allergies Medications Carafate 1 gm oral tablet 1 Gm, 1, tablet, By Mouth, 4 times a day, # 120 tablet, Refills 5, Tot. Refills 5, Maintenance, 07/10/22 11:58:00 EDT, Route to Pharmacy Electronically, [facility] #[id number], Partial fill uponpatient request if the prescription [...] Maintenance, 07/11/2309:34:00 EDT, Route to Pharmacy Electronically, [facility] #[id number], Partial fill upon patient request if the [...] Refills, Maintenance, 06/11/22 12:06:00 EDT, EC Tablet, [facility] #[id number], Partial fill upon patient request if the prescription is for a schedule II opioid drug., 180, cm, 06/10/22... Start Date: 06/11/22 Status: Ordered Social History Social History Type Response Smoking Status Never (less than 100 in lifetime) entered on: 05/30/20 Sex Patient Care team information Care Team Personnel Name: Dean Bravo Position: Reference Physician Member Role: PCP Address: Address: [address] [place] [address]- Care Team Related Persons Name: KATHRYN LAGUNAS Address: [place], [place] Name: YRIS LAGUNAS Address: home [address] [place] [address]
--- OUTSIDE RECORDS SUMMARY | 2023-07-25 13:50 | XMS_ITS | Continuity of Care Document ---
Author Organization [facility] Address [address] [place] [address]- Care Team Providers Care Manager Forensic Name Role Phone Dean Bravo Primary Care Physician [place] [id number] Date(s): 01/15/23 - 02/14/23 [facility] [address] [place] [address]- Attending Physician: Keisha Gr Admitting Physician: AdmKeisha short Referring Physician: Admtr, Ar8 Allergies, Adverse Reactions, Alerts No Known Medication Allergies Medications Carafate 1 gm oral tablet 1 Gm, 1, tablet, By Mouth, 4 times a day, # 120 tablet, Refills 5, Tot. Refills 5, Maintenance, 07/10/22 11:58:00 EDT, Route to Pharmacy Electronically, [facility][id number], Partial fill uponpatient request if the prescription [...] Maintenance, 07/11/2309:34:00 EDT, Route to Pharmacy Electronically, [facility] #[id number], Partial fill upon patient request if the [...] Refills, Maintenance, 06/11/22 12:06:00 EDT, EC Tablet, [facility] #[id number], Partial fill upon patient request if the prescription is for a schedule II opioid drug., 180, cm, 06/10/22... Start Date: 06/11/22 Status: Ordered Social History Social History Type Response Smoking Status Never (less than 100 in lifetime) entered on: 05/30/20 Sex Laboratory * Event Display: Non Lab Results Authored Date: Radiology * Event Display: Ultrasound Abdomen, Non-BH Authored Date: Patient Care team information Care Team Personnel Name: Dean Bravo Position: Reference Physician Member Role: PCP Address: Address: [address] [place] [address]- Care Team Related Persons Name: KATHRYN LAGUNAS Address: [place], [place] Name: YRIS LAGUNAS Address: home [address] [place] [address]
--- OUTSIDE RECORDS SUMMARY | 2023-07-25 13:50 | XMS_ITS | Continuity of Care Document ---
Author Organization [facility] Address [address] [place] [address]- Care Team Providers Care Hide And Skin Classer Name Role Phone Dean Bravo Primary Care Physician Encounter [facility] [place] Date(s): 04/10/20 - 05/10/20 [facility] [address] [place] [address]- Allergies, Adverse Reactions, Alerts No Known Medication [...] each, 0 Refills, Maintenance, 01/11/20 14:41:00 EST, [facility] #[id number], Ok to substitue for PEG, Nulytely, Gavaltye, etc, as directed, 180, cm, 12/24/19 14:11:00 EST, Height Start Date: 01/11/20 Status: Ordered Multivitamin Daily, 0 Refills, Maintenance, 12/01/18 9:20:40 EDT Start Date: 12/01/18 Status: Ordered
--- OUTSIDE RECORDS SUMMARY | 2023-07-25 13:50 | XMS_ITS | Continuity of Care Document ---
Author Organization [facility] Address [address] [place] [id number]- Care Team Providers Care Set Up Mechanic Coating Machines Name Role Phone Dean Bravo Primary Care Physician Encounter [facility] [place] Date(s): 06/11/22 - 07/11/22 [facility] [address] [place] [id number]- [place] Allergies, Adverse Reactions, Alerts No Known Medication Allergies Medications Carafate 1 gm oral tablet 1 Gm, 1, tablet, By Mouth, 4 times a day, # 120 tablet, Refills 5, Tot. Refills 5, Maintenance, 07/10/22 11:58:00 EDT, Route to Pharmacy Electronically, [facility] #[id number], Partial fill uponpatient request if the prescription [...] Maintenance, 07/11/2309:34:00 EDT, Route to Pharmacy Electronically, [facility] #[id number], Partial fill upon patient request if the [...] Refills, Maintenance, 06/11/22 12:06:00 EDT, EC Tablet, [facility] #[id number], Partial fill upon patient request if the prescription is for a schedule II opioid drug., 180, cm, 06/10/22... Start Date: 06/11/22 Status: Ordered oxyCODONE 5 mg oral tablet 5 mg, 1, tablet, By Mouth, Every 6 hours, PRN, # 12 tablet, Refills 0, Tot. Refills 0, Acute 07/14/22 21:00:00 EDT, for pain, 07/11/22 10:34:00 EDT, Route to Pharmacy Electronically, [facility] #[id number], Partial fill upon patient request if th... Start Date: 07/11/22 Stop Date: 07/14/22 Status: Ordered Social History Social History Type Response Smoking Status Never (less than 100 in lifetime) entered on: 05/30/20 Sex Patient Care team information Care Team Personnel Name: Dean Bravo Position: Reference Physician Member Role: PCP Address: Address: [address] [place] [address]- Care Team Related Persons Name: KATHRYN LAGUNAS Address: home [place], [place] Name: YRIS LAGUNAS Address: home [address] [place] [id number]
[2023-07-25 13:53] VITALS: BMI 26.8
[2023-07-25] MEDS: Lactated Ringers 1,000 ML 100 ML IVCONT (13:59)
--- NOTE | 2023-07-25 14:09 | MHC.SHP ---
Pre-Procedural Eval Section A - 24 Hr Update-Section A only Date of Service: 07/25/23 The patient is an INPATIENT: No Changes since office visit: Yes Patient answered all questions The patient has been examined within 24 hours of the surgical procedure. The History & Physical has been completed within 30 days and I have reviewed it.: No Section B - Complete if H&P > 30 days Chief Complaint: Postlaminectomy syndrome,Radiculopathy, lumbar Details of Present Illness: As above Relevant Family History (Specify if Yes): No Relevant Social History: None Present Medications: None Medical History: No relevant PMH History of Previous Operations: Relevant previous surgery/procedure and date(s) Allergies: Allergies Allergy/AdvReac Type Severity Reaction Status Date / Time No Known Allergies Allergy Verified 07/23/23 11:33 Review of Systems Sugical H&P ROS: Negative: Constitution, Cardiovascular, Respiratory, Neurological, Psychiatric, Hem-Onc, Allergic/Immunologic, Gastrointestinal, Genitourinary, Musculoskeletal, Integumentary, Endocrine and Eyes/Ears/Nose/Throat Exam Surgical H&P Exam: Normal: HEENT, Normal: Heart, Normal: Lungs, Normal: Extremities, Normal: Abdomen, Normal: Skin and Normal: Neurological Plan I have reviewed the history and physical and performed a pertinent physical examination on my patient. No changes have occurred unless specified. I am going to perform bilateral transforaminal epidural steroid injection L5-S1. Time Spent With Patient Time: Total time managing care of this patient today ____ minutes.
[2023-07-25 14:11] VITALS: BP 149/98; PULSE 75; RESP 18; TEMP 36.8; O2SAT 98
--- NOTE | 2023-07-25 15:00 | PM.OP ---
Brief Operative Note Date of Service: 07/25/23 Pre-op diagnosis: Radiculopathy lumbar Post-op diagnosis: same Procedure: Bilateral transforaminal L5-S1 epidural steroid injection. Surgeon: Daquan Cruz MD Anesthesia: MAC Was an Canceling And Cutting Control Clerk used for this Procedure?: No Estimated blood loss (mL): 0 Condition: stable Disposition: PACU
--- NOTE | 2023-07-25 15:02 | P.OP_ITS ---
Operative Note Operative Note Date of Service: 07/25/23 Narrative: Bilateral transforaminal epidural steroid injection L5-S1. Bilateral L5-S1 Transforaminal epidural steroid injection Informed consent was thoroughly explained to the patient before the procedure. The patient came to the operating room. He was positioned prone on operating table with a pillow under her abdomen. ASA monitors were applied and patient was sedated. Time-out was performed delineating correct site and side of the procedure, nature of the injection, name and date of of the patient. The lower back of the patient was prepped with ChloraPrep and draped with sterile utility towels. C-arm was brought over the operating field and sq picture of L5 vertebra was demonstrated on the screen. The righ side was chosen as the 1st side of the injection. Tilting machine ipsilateral to the right at the level of L5 the most prominent picture of the right L4 superior articular process was obtained on the screen. At the projection of the lateral border of the SAP L5 to the skin small amount of lidocaine 1% 3-4 cc was injected to anesthetize the skin and s/q tissues. After that 5 in 22 gauge Quincke point needle was inserted through the skin wheal and was advanced to were the L5-S1 foramina on anterior posterior, oblique and lateral views intermittently.When needle tip contacted the bone the needle was deviated laterally and after that medially to advance it below the SAP and into the L5-S1 foramina. On lateral view the needle appeared to be at the lateral portion of the foramina. When tip of the needle entered foramina projection on AP view injection of the c ontrast was performed demonstrating epidural and perineural spread of the contrast. After that injection of the treatment medicine 4 cc of preservative- free lidocaine 1% mixed with Kenalog 40 mg was injected into the foramina. Injection of the contrast and injection of the treatment medicine was observed live on the screen. After that the procedure was repeated on the left side in the mirroring fashion. No intrathecal and no intravascular spread of the contrast was noted. The needle was removed and bandaid was applied the patient tolerated procedure well. He was taken outside of the operating room to PACU to recover.
[2023-07-25 15:06] VITALS: BP 158/107; PULSE 80; RESP 16; TEMP 36.3; O2SAT 100
== END 2023-07-25 15:34 | disposition home or self-care (01) ==
PROVIDERS: PCP Physician Assistant; Visit Provider Anesthesiology
PROC: 3E0R33Z Introduction of Anti-inflammatory into Spinal Canal, Percutaneous Approach (ICD-10-PCS; CPT 64483; principal; 2023-07-25 13:40)
DX: M96.1 Postlaminectomy syndrome, not elsewhere classified (principal); M47.26 Other spondylosis with radiculopathy, lumbar region; G62.9 Polyneuropathy, unspecified
CPT/HCPCS: 64483; J2250; J2704; J3010; J3301; Q9967

== ENCOUNTER → 2023-07-25 13:48 | Outpatient (BNV) | payer OTHER, SELFPAY | PROVIDERS: PCP Physician Assistant; Visit Provider Anesthesiology | DX: M54.16 Radiculopathy, lumbar region (principal) | CPT/HCPCS: 64483 ==

== ENCOUNTER 2023-08-22 09:16 | Outpatient (AMB) | payer OTHER, SELFPAY ==
--- NOTE | 2023-08-22 09:23 | A.OFFVIS_ITS ---
Vital Signs 08/22/23 09:24 Height 5 ft 11 in Weight 189 lb BMI 26.4 BP 164/91 H Blood Pressure Location Rt brachial Position Sitting Pulse 69 Pulse Source Pulse Oximeter Pulse Oximetry (%) 99 Oxygen Delivery Method Room Air Intake Visit Reasons: S/p B/l L5 TFESI 07/25/23 Fire Eater Required: No Allergies No Known Allergies Allergy (Verified 08/22/23 09:26) Medication List - Last Reconciled 08/22/23 by Rosemarie Quezada cetirizine 10 mg PO DAILY 60 days cyclobenzaprine 5 mg PO Q12H PRN lidocaine 5% 1 patch topical DAILY 30 days methocarbamol 500 mg PO TID PRN naproxen 250 mg PO BID tramadol 50 mg PO TID PRN 7 days HPI Comments Details: Chilo presents back to the office today for follow up 1 month s/p bilateral L5 TFESI performed with sedation 07/25/2023 bbsania Cruz. Reports 50-60% pain relief since the procedure Pain today rated as 4/10. worse in the morning. Has been researching SCS since last visit Prior: Telehealth visit completed today for follow-up, review of MRI and EMG. Results of MRI and EMG reviewed with patient, as per below. Patient states he continues with pain across the lower back and numbness, tingling his right lower leg from the knee to the foot. He reports these symptoms are manageable. He has tried Lyrica in the past but did not like the side effects we stopped taking it. He has recently started physical therapy, reports still only been a couple weeks so has not noticed much benefit as of yet. Had recent visit with rheumatology, scheduled for follow-up. States they did blood work and he is waiting for the results. Prior: Chilo is a very pleasant 42-year-old male who presents the office today for evaluation management of his chronic lower back pain. He has been suffering with this pain for greater than 15 years. Status post partial discectomy in 2006 after he injured his back falling during a recreational football game. Prior to that he had been active in basketball and pain was present before the football injury but became significantly worse after the fall. He was evaluated at that time in the emergency room and ultimately underwent surgery. He does endorse burning pain, numbness and tingling down the right leg to include the right foot. Initially it was more in the foot but has been progressively getting worse over the years. He states that this started prior to surgery and persisted after. At one point he was started on Lyrica but had side effects so he stopped taking it. For 2 years after surgery he was seen in pain management and underwent multiple injections but found that they did not provide him benefit so he worked more on lifestyle modifications. Patient denies red flag symptoms including new loss of bowel, bladder or saddle anesthesia. Recent xray, results as per below. He has not had recent MRI, last one was greater than 10 years ago. Pain today is rated as an 8/10, across the lower back and down the right leg. Pain is constant, worse with weather changes and movement. In terms of muscle damage condition is described as pulsing, throbbing, pounding, jumping, flushing, shooting, stabbing, sharp, cutting, tingling, burning, scalding, dull, sore, hurting, aching, heavy, tight, squeezing. Pain is negatively impacting patient's enjoyment of life, ability to perform activities of daily living, ability to function normally. After surgery he completed physical therapy with no improvement of his symptoms. Patient is interested in retrying physical therapy, he was expecting a call after recent PCP visit but states that physical therapy has not reached out to him to schedule appointment. He has been doing home exercise program but reports that the stretching has been getting increasingly more difficult over the last year. Patient has been using [id number] lidocaine patches and nonsteroidal anti- inflammatory medications with some relief. When pain is severe he has tramadol and cyclobenzaprine but uses those very rarely. He has also changed his lifestyle and improved his diet and physical activity but pain persists. [facility] Medical History Neuropathy Anemia HTN (hypertension) GERD (gastroesophageal reflux disease) Anxiety Elevated uric acid in blood Right shoulder pain Chronic lower back pain Surgical History Hx of lithotripsy Hx of circumcision Hx of hemorrhoidectomy Hx of cystoscopy History of esophagogastroduodenoscopy (EGD) H/O colonoscopy History of lumbar surgery Family History Father Colon cancer, Onset Age: 47 CAD (coronary artery disease), Onset Age: 55 Mother Ovarian cancer Sister Arthritis Social History Housing: House Alcohol intake: current Alcohol intake frequency: holidays/special occasions only Patient Tobacco Use Status: Never used Tobacco e-Cigarette/Vaping Use: Never Used Second Hand Smoke Exposure: No service: No Current occupational status: employed 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 Answers questions appropriately. Fully engaged in examination. Skin: warm, dry, intact HEENT: Normocephalic. Hearing intact. Cardiac: External chest normal in appearance. Respiratory: No cough, audible wheezing or stridor. Abdomen: without gross distension. MS: No obvious swelling or deformities. Able to transition from sit to stand unassisted. Ambulates with bilaterally normal heel strike and toe off Neurological: Oriented to person, place, time and situation. Thought process intact. No gait abnormalities appreciated. Psychiatric: Appropriate mood and affect. Good judgment and insight. Results Reviewed Results Reviewed: 04/24/2023 EMG Right tibial and peroneal motor studies were performed. Right superficial peroneal, sural, median, and lateral plantar studies were performed. Tibial H-reflex was obtained, and paraspinal muscles were tested with a needle. 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 04/21/2023 MR/MR lumbar spine wo con FINDINGS: Coronal Alignment: Normal. Sagittal Alignment: There is lordotic loss with trace lordotic reversal centered at L2-L3 and mild degrees of retrolisthesis at L4-L5 and L5-S1. Lumbosacral Junction: Normal. There are 5 plm-ecz-jdbsvar lumbar-type vertebral bodies. Vertebral Bodies: There is slight chronic anterior wedging of the L1, L2, L3 and L4 vertebral bodies. No acute or nonhealed fractures are seen. The findings are more consistent with chronic remodeling of the vertebral bodies. Disc Spaces and Endplates: Severe disc space height loss at L5-S1 is noted with intradiscal degenerative signal changes, Schmorl's nodes and spondylosis. Moderate disc volume loss also noted at L4-L5 with central Schmorl's nodes, disc desiccation and minor spondylosis. Central Schmorl's nodes are also noted at the levels between L3-L4 and T11-T12 inclusive and there is disc desiccation at T11-T12. Spinal Canal: No abnormal developmental findings. Bone Marrow: No suspicious marrow-replacing process or bone marrow edema. There are type I degenerative marrow signal changes along the endplates at L5-S1. Conus Medullaris: Terminates at T12-L1. Morphology and signal is normal. Intradural Nerve Roots: Within normal limits. L5-S1: Mild retrolisthesis is noted with concentric disc bulging and a superimposed small caudally migrated extrusion in the left subarticular zone encroaching on the left S1 nerve root. Slight flattening of the ventral thecal sac is also noted with crowding of the subarticular zones bilaterally with disc herniation extending into the left lateral recess. There is mild facet arthropathy without significant central canal stenosis. There is moderate bilateral neural foraminal stenosis with disc osteophyte complex slightly encroaching on the exiting right L5 nerve root. L4-L5: There is concentric disc bulging with evidence of a previous right-sided hemilaminectomy with chronic postoperative changes. There is ligamentum flavum thickening on the left and there is minor facet arthropathy without central canal stenosis. There is asymmetric narrowing of the left subarticular zone mildly encroaching on the traversing left L5 nerve root. The right subarticular zone appears decompressed. No significant neural foraminal stenosis. L3-L4: Minor annular bulging without significant facet arthrosis, canal or foraminal stenosis. L2-L3: Normal annular contour. No facet arthrosis, canal or foraminal stenosis. L1-L2: Normal annular contour. No facet arthrosis, canal or foraminal stenosis. T12-L1:Normal annular contour. No facet arthrosis, canal or foraminal stenosis. Paravertebral and Included Extraspinal Soft Tissues: The visualized paravertebral soft tissues and included retroperitoneal structures are unremarkable within the limitations of the exam. IMPRESSION: 1. Discogenic degenerative changes primarily at L4-L5 and L5-S1 with mild degrees of retrolisthesis at these levels. 2. Disc bulging and left subarticular disc herniation at L5-S1 with encroachment on the traversing left S1 nerve root. Moderate bilateral neural foraminal stenosis at this level with disc osteophyte complex encroaching on the exiting right L5 nerve root. 3. Postoperative changes on the right at L4-L5 with disc bulging and left-sided ligamentum flavum thickening with moderate narrowing of the left subarticular zone encroaching on the traversing left L5 nerve root. 4. Mild chronic anterior wedging of the L1, L2, L3 and L4 vertebral bodies without acute or nonhealed fractures associated with mild lordotic reversal centered at L2-L3. Assessment & Plan Assessment & Plan (1) Lumbar radiculopathy: Code(s): M54.16 - Radiculopathy, lumbar region Category: Medical (2) Neuropathy: Code(s): G62.9 - Polyneuropathy, unspecified Category: Medical (3) Post laminectomy syndrome: Comment: partial discectomy 2006 Code(s): M96.1 - Postlaminectomy syndrome, not elsewhere classified Category: Medical (4) Lumbar facet arthropathy: Code(s): M47.816 - Spondylosis without myelopathy or radiculopathy, lumbar region Category: Medical Plan Chilo today for follow-up, 1 month status post bilateral L5 transforaminal epidural steroid injection with sedation 50-60% pain relief since the procedure with improvement in mobility. Given pain persists after HESHAM will refer to neurospine for evaluation. Patient has exhausted greater than 6 months of conservative therapy including topical lidocaine patches, nonsteroidal anti-inflammatory medications, muscle relaxers, prescription opioids, physical therapy, home exercise program and previous steroid injections. Discussed at length spinal cord stimulation trial/implant. Patient would like to hold off until after visit with neurospine. Will discuss further at next visit All questions and concerns have been answered and patient agrees with the plan. Follow up after neurospine eval, sooner if needed. Orders: Referrals Neuro Spine Referral M54.16 - Radiculopathy, lumbar region Coding Level of Care Code Est Pt Level 3 (21951) Diagnoses Lumbar radiculopathy M54.16 Neuropathy G62.9 Post laminectomy syndrome M96.1 Lumbar facet arthropathy M47.816
[2023-08-22 09:24] VITALS: BP 164/91; PULSE 69; O2SAT 99; BMI 26.4
== END 2023-08-22 09:48 | disposition home or self-care (01) ==
PROVIDERS: PCP Physician Assistant; Visit Provider Registered Nurse Emergency
DX: M54.16 Radiculopathy, lumbar region (principal); G62.9 Polyneuropathy, unspecified; M96.1 Postlaminectomy syndrome, not elsewhere classified; M47.816 Spondylosis without myelopathy or radiculopathy, lumbar region
CPT/HCPCS: 99213

== ENCOUNTER → 2023-08-22 09:16 | Outpatient (BNVA) | payer OTHER, SELFPAY | PROVIDERS: PCP Physician Assistant; Visit Provider Registered Nurse Emergency ==

== ENCOUNTER 2023-09-15 10:21 | Outpatient (AMB) | payer OTHER, SELFPAY ==
--- NOTE | 2023-09-15 10:27 | HO.SPINEOV ---
Intake Visit Reasons: lumbar radiculopathy Intake Note: Mr. Artem Dunlap is here today c/o Left leg pain that radiates to the top of the buttocks and right leg tingling. Esl Instructional Assistant Required: No Allergies No Known Allergies Allergy (Verified 09/15/23 10:45) Assessment & Plan Assessment & Plan (1) Lumbar radiculopathy: Code(s): M54.16 - Radiculopathy, lumbar region Category: Medical Plan Dear Valarie, Thank you for referring Chilo to our office today. He is a pleasant 42-year-old male who comes in today with a chief complaint of low back pain with shooting pains down his left posterior buttocks. He reports that he 1st began experiencing back pain in 2006 after a football related injury. He had a microdiskectomy completed at L4-[address] Davila. He states he had resolution of symptoms up until roughly 1-2 years ago, when he began experiencing a different type of pain which originates in his low back and shoots into his left posterior buttocks down his left posterior thigh terminating before the knee. He denies any numbness/tingling/burning associated with this pain. He reports that it worsens with prolonged sitting and lying in the ? position.? He reports the pain resolves when walking or lying flat on his back. He has tried multiple [id number]-fin-czcimfc remedies including Tylenol, ibuprofen, ice ER, and lidocaine patches without significant symptom relief. He most recently had bilateral L5 transforaminal epidural steroid injections completed by our colleagues at pain management which only provided about 50% symptom relief. He did recently attempted physical therapy which he completed less than 2 months ago. PMH: Hypertension, allergic rhinitis, GERD. Social hx: Patient does not smoke, reports no substance use. Medications: Cetirizine, cyclobenzaprine, lidocaine, methocarbamol, naproxen, tramadol. Allergies: NKDA. Physical exam: The patient has 5/5 strength in his upper and lower extremities. He is able to ambulate well and rises from a seated position without difficulty. His bilateral straight leg raise is negative. He has no significant sensational deficits. His left-sided L4 patella reflex is absent. The rest of his reflexes are 2+ intact. (-) Bolton's, (-) clonus. Imaging review: MRI of the lumbar spine completed here at [facility] shows moderate degenerative disc disease at L4-5 with severe left-sided and moderate-severe right-sided foraminal stenosis at this level. In addition to this there is severe loss of disc height at L5-S1 with severe central canal and moderate-severe bilateral foraminal stenosis at this level. Impression: Chilo is a pleasant 42-year-old male who comes in today with a chief complaint of low back pain with shooting pains into his left lower extremity. His symptoms are classic for left-sided lumbar radiculopathy. His MRI imaging shows left-sided foraminal stenosis at L4-5 and L5-S1. His symptoms match this dermatomal distribution, with both an absent left-sided patellar reflex and a classic S1 radiculopathy that terminates early. His MRI imaging is indicative of a possible listhesis given the orientation of L5-S1 and L4-5. I would like to send the patient for a set of flexion/extension x-ray imaging to make sure there is no movement on dynamic imaging. I will review his x-ray imaging and MRI with Dr. Morales and reach out to the patient in the next few days with an answer regarding surgical recommendations. I will update this note accordingly. Thank you for allowing us to care for your patient. The total time spent with this visit with this patient was 45 minutes reviewing history, physical exam, MRI imaging review, and implementation of treatment plan or further diagnostic testing. Trevor Morales MD,PhD [facility] Orders: Orders XR lumbar spine 4V min Today M54.16 - Radiculopathy, lumbar region Coding Level of Care Code New Pt Level 4 (13188) Diagnoses Lumbar radiculopathy M54.16
== END 2023-09-15 11:25 | disposition home or self-care (01) ==
PROVIDERS: PCP Physician Assistant; Referring Provider Physician Assistant; Visit Provider Physician Assistant
DX: M54.16 Radiculopathy, lumbar region (principal)
CPT/HCPCS: 99204

== ENCOUNTER 2023-09-15 10:21 | Outpatient (REF) | payer OTHER, SELFPAY ==
--- NOTE | ~2023-09-15 | XR_ITS ---
EXAMINATION: XR LUMBOSACRAL SPINE CLINICAL INFORMATION: Lumbar radiculopathy. COMPARISON: MRI lumbar spine dated 04/21/2023; lumbar spine radiographs dated 03/10/2023. TECHNIQUE: AP and lateral views of the lumbar spine were obtained. Lateral views were obtained in flexion, extension, and neutral positions. FINDINGS: Bony mineralization is normal. There are minimal L1 and mild L2 anterior wedge compression fractures. At L5-S1, there is marked degenerative disc disease. The remaining disc spaces are relatively well-maintained. There is multi-level lumbar endplate Schmorl's node formation. No acute fracture or spondylolisthesis is seen. There is no instability with flexion or extension. The posterior elements are intact. The paravertebral soft tissues are unremarkable. XR/XR lumbar spine 4V min IMPRESSION: 1. There are very mild L1 and mild L2 anterior wedge compression fractures. 2. There is marked degenerative disc disease at L5-S1. 3. There is no instability with flexion or extension. Electronically signed by: Zachary Stinson MD 10/09/2023 04:56 PM EDT
== END 2023-09-15 10:22 | disposition home or self-care (01) ==
LOC: HO.HOSX 10:21
PROVIDERS: PCP Physician Assistant; Visit Provider Physician Assistant
DX: M54.16 Radiculopathy, lumbar region (principal)
CPT/HCPCS: 72110

== ENCOUNTER 2023-10-10 13:32 | Outpatient (AMB) | payer OTHER, SELFPAY ==
--- NOTE | 2023-10-10 14:21 | A.SPINEOV_ITS ---
Intake Visit Reasons: subseuqent evaluation. Intake Note: Mr. Artem Dunlap is here today for an evaluation. Air Deodorizer Servicer Required: No Allergies No Known Allergies Allergy (Verified 09/15/23 10:45) Assessment & Plan Assessment & Plan (1) Lumbar disc herniation with radiculopathy: Code(s): M51.16 - Intervertebral disc disorders with radiculopathy, lumbar region Category: Medical Plan Dear colleague, On 10/10/2023, I saw for follow-up Chilo Dulnap to discuss surgical options. He is a 42-year-old male who has been dealing with a classic left S1 radiculopathy for a long period of time. Symptoms keep significant bothering him despite conservative treatments. On exam, the left ankle reflexes absent. Straight leg raise is positive for radiating pain down his left leg. An MRI shows a disc osteophyte complex compressing the left S1 nerve root. In summary, this patient is suffering from persistent left S1 radiculopathy due to left S1 nerve root compression. I offered him a left L5-S1 microdiskectomy on 11/27/2023. We discussed the procedure, possible complications and expected postoperative course. He wants to proceed. I spent 30 minutes in his consult to review imaging and discussing plan of care. Biju Morales MD, PhD Spine Fellowship Trained Neurosurgeon Director, [facility] Coding Level of Care Code Est Pt Level 4 (69597) Diagnoses Lumbar disc herniation with radiculopathy M51.16
== END 2023-10-10 15:12 | disposition home or self-care (01) ==
PROVIDERS: PCP Physician Assistant; Visit Provider Neurological Surgery
DX: M51.16 Intervertebral disc disorders with radiculopathy, lumbar region (principal)
CPT/HCPCS: 99214

== ENCOUNTER → 2023-10-10 13:32 | Outpatient (BNVA) | payer OTHER, SELFPAY | PROVIDERS: PCP Physician Assistant; Visit Provider Neurological Surgery ==

== ENCOUNTER 2023-11-18 08:22 | Outpatient (AMB) | payer OTHER, SELFPAY ==
[2023-11-18 08:47] VITALS: BP 140/80; PULSE 68; O2SAT 99; BMI 25.8
--- NOTE | 2023-11-18 08:47 | A.OFFPC_ITS ---
Vital Signs 11/18/23 08:47 Height 5 ft 11 in Weight 185 lb BMI 25.8 BP 140/80 H Blood Pressure Location Lt brachial Position Sitting Pulse 68 Pulse Source Pulse Oximeter Pulse Oximetry (%) 99 Oxygen Delivery Method Room Air Intake Visit Reasons: 6mof\u Health Care / Medical Job Titles Required: No Allergies No Known Allergies Allergy (Verified 11/18/23 08:54) Medication List - Last Reconciled 11/18/23 by Dean Willis PA-C cetirizine 10 mg PO DAILY 60 days clonidine HCl 0.1 mg PO BEDTIME cyclobenzaprine 5 mg PO Q12H PRN ginkgo biloba 40 mg PO DAILY lidocaine 5% 1 patch topical DAILY PRN lisinopril 5 mg PO DAILY 90 days methocarbamol 750 mg PO TID PRN multivitamin 1 tab PO DAILY naproxen 250 mg PO DAILY PRN tramadol 50 mg PO TID PRN Tobacco use date assessed: 03/10/23 Dental Screening Dental Screen Date: 03/10/23 HPI 6mof\u HPI Details Patient is a 42-year-old male here today for follow-up visit. Patient has a past medical history significant for generalized anxiety disorder, nephrolithiasis. Hypertension: Has started lisinopril 5 mg to which he takes several times a week. He reports his high blood pressures are usually at times of increased stress and anxiety over personal matters at home. He reports his chest pain has essentially resolved. Also his home stress has gotten much better FERN:? Has been using Clonidine 0.1 mg on a p.r.n. basis with good effect of reducing his anxiety.? City is triggered by family issues.. He is interested in cognitive behavioral therapy . Lumbar disc disease: He is status post lumbar disc surgery in 2006. Patient has seen neurosurgeon here in [place] as he has been having more lower back pain with radiculopathy requiring more pain medication to be used. He is due for microdiskectomy this month. He does use tramadol 50 mg as needed. He has tried a higher dose of tramadol though felt side effect. Laboratory Tests 11/05/21 04/10/23 04/13/23 08:51 10:57 09:42 RBC 5.74 Creatinine 1.02 Total Creatine Kin ase 218 H Cholesterol 167 LDL Cholesterol, C alc 101 PFSH Medical History (Updated 11/19/23 @ 07:26 by Dean Willis PA-C) COVID-19 Arthritis Neuropathy Anemia HTN (hypertension) GERD (gastroesophageal reflux disease) Anxiety Elevated uric acid in blood Chronic lower back pain Surgical History Hx of lithotripsy Hx of circumcision Hx of hemorrhoidectomy Hx of cystoscopy History of esophagogastroduodenoscopy (EGD) H/O colonoscopy History of lumbar surgery Family History Father Colon cancer, Onset Age: 47 CAD (coronary artery disease), Onset Age: 55 Mother Ovarian cancer Sister Arthritis Social History Housing: House Are you a primary workforce investment act career manager to a significant other at home: No Do you presently have visiting nurse or other home services: No Alcohol intake: current Alcohol intake frequency: a few times a month Patient Tobacco Use Status: Never used Tobacco e-Cigarette/Vaping Use: Never Used Second Hand Smoke Exposure: No Use of substances other than those prescribed or required for medical reasons: No Have you been hit, kicked, punched, or otherwise hurt by someone within the past year? If so, by whom?: No Are you DNR?: No Advance Directives: No Advance Directives Information Provided: No Advance Directives on File: No Recently lost weight without trying: No Eating poorly because of decreased appetite: No Nutrition Risks: No Nutritional Risk Poor oral hygiene: No service: No Current occupational status: employed Current occupation: [employer] - [employer]- remote from home Current occupational exposures/hazards: No Cognitive needs: No Hearing needs: No Vision needs: Yes Questionnaire Thrive Questionnaire Date Thrive assessed: 03/10/23 Are you currently unemployed and looking for a job?: No AUDIT C Alcohol Use Questionnaire (AUDIT-C) 1. How often do you have a drink containing alcohol?: 2-4 times a month 2. How many drinks containing alcohol do you have on a typical day when you are drinking?: 1 or 2 3. How often do you have six or more drinks on one occasion?: Less than monthly Total Score: 3 FERN-7 AMB Questionnaire FERN-7 Date FERN - 7 assessed: 03/10/23 Source: Developed by Drs. Alejandro Joseph, Krystina Askew, Lopez Ellison and colleagues, with an educational jose from [employer]. Review of Systems Const Denies headache(s) Eyes Denies loss of vision ENT Denies vertigo, Denies dizziness, Denies headache(s) and Denies sore throat Card Denies chest pain, Denies leg edema and Denies lightheadedness Resp Denies cough, Denies hemoptysis and Denies wheezing GI Denies abdominal pain, Denies melena, Denies constipation, Denies diarrhea and Denies vomiting Denies dysuria, Denies urinary frequency and Denies urinary urgency Musc Reports back pain, Denies arthralgias, Denies joint swelling, Denies numbness and Denies tingling Neuro Denies Abnormal speech present, Denies behavioral changes, Denies vertigo, Denies dizziness, Denies headache(s), Denies loss of vision, Denies memory loss, Denies numbness and Denies tingling Psych Denies anxiety, Denies behavioral changes, Denies depression, Denies memory loss and Denies panic attacks Chente/Lymph Denies easy bleeding and Denies easy bruising Aller/Immun Denies wheezing Physical exam (Primary Care) Vital Signs: Last Vital Signs Pulse 68 11/18/23 08:47 BP 140/80 H 11/18/23 08:47 Pulse Ox 99 11/18/23 08:47 Oxygen Delivery Method Room Air 11/18/23 08:47 BMI result Body Mass Index 25.8 Tobacco/Smoking Status: Tobacco use Status Tobacco use date assessed 03/10/23 11/18/23 08:53 Patient Tobacco Use Status Never used Tobacco 11/18/23 08:53 e-Cigarette/Vaping Use Never Used 11/18/23 08:53 Thrive Assessment: Date of Thrive Assessment Date Thrive assessed 03/10/23 11/18/23 08:53 Const General: healthy appearing, no acute distress, alert and awake Nutritional Appearance: well nourished Orientation/consciousness: oriented to person, oriented to place and oriented to time HENMT Ears: TM's normal bilaterally General nose exam: Normal nasal mucous membranes and turbinates present Eyes Conjunctivae: conjunctivae normal Sclerae: sclerae normal Pupils: Equal, round and reactive pupils present Neck Neck: Yes no lymphadenopathy and Yes no JVD Thyroid: Thyroid normal Carotids: no bruits Resp Effort & Inspection: normal respiratory effort and not tachypneic Auscultation: no crackles, no rales, no rhonchi and no wheezes Cardio Rate: regular rate Rhythm: regular rhythm Heart sounds: no murmurs and normal S1 and S2 GI Palpation (GI): Soft to palpation, nontender, no hepatomegaly and no splenomegaly Auscultation: normal bowel sounds Skin General skin exam: no rashes or lesions noted and dry skin Neuro General: oriented to person, oriented to place and oriented to time Cranial nerves: Yes Equal, round and reactive pupils present Speech: No Abnormal speech present Gait exam (Neuro): Normal gait present Motor exam (neuro): no tremor noted Extrem Right upper extremity: full ROM Left upper extremity: full ROM Right lower extremity: full ROM; no edema Left lower extremity: full ROM; no edema Psych Mental Status: mental status grossly normal Speech and movement: Normal speech and movement present Affect: normal affect Attitude: cooperative Thought process: Normal thought process present Coding Level of Care Code Est Pt Level 4 (89146) Diagnoses Primary hypertension I10 Hypertension type: primary hypertension 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 Will continue with use lisinopril 5 mg to control blood pressure. Goal blood pressure to remain below 140/90. (2) Lumbar disc herniation with radiculopathy: Code(s): M51.16 - Intervertebral disc disorders with radiculopathy, lumbar region Category: Medical Plan: As per HPI patient is followed by [place] neurosurgeons. Has significant history of lower lumbar disc disease.. He is planning on a microdiskectomy next week to help reduce his lower lumbar spine pain. At this time does use tramadol 50 mg and cyclobenzaprine on an as needed basis for his pain Medications: Changed From lisinopril 5 mg PO DAILY I10 - Essential (primary) hypertension To lisinopril 5 mg PO DAILY 90 tabs 1RF 90 days I10 - Essential (primary) hypertension Patient Instructions: Goal: Blood pressure to be below 140/90 Barriers: Adherence to physical activities in healthy eating habits
== END 2023-11-18 09:06 | disposition home or self-care (01) ==
PROVIDERS: PCP Physician Assistant; Visit Provider Physician Assistant
DX: I10 Essential (primary) hypertension (principal); M51.16 Intervertebral disc disorders with radiculopathy, lumbar region

== ENCOUNTER → 2023-11-18 08:22 | Outpatient (BNVA) | payer OTHER, SELFPAY | PROVIDERS: PCP Physician Assistant; Visit Provider Physician Assistant ==

== ENCOUNTER 2023-11-27 07:27 | Day surgery (SDC) | payer OTHER, SELFPAY ==
[2023-11-14 11:18] VITALS: BMI 25.9
[2023-11-27] VITALS (14 sets, daily range): BP systolic 141–164; BP diastolic 77–97; PULSE 65–90; RESP 12–16; TEMP 36.1–36.6; O2SAT 97–100
--- OUTSIDE RECORDS SUMMARY | 2023-11-27 07:31 | XMS_ITS | Continuity of Care Document ---
Author Organization [facility] Address [address] [place] [id number]- Care Team Providers Care Brand Development Manager Name Role Phone Dean Bravo Primary Care Physician Encounter [facility] Date(s): 07/01/23 - 07/31/23 [facility] [address] [place] [id number]- Attending Physician: Keisha Gr Admitting Physician: Keisha Gr Referring Physician: [email or web address] Allergies, Adverse Reactions, Alerts No Known Medication Allergies Medications Carafate 1 gm oral tablet 1 Gm, 1, tablet, By Mouth, 4 times a day, # 120 tablet, Refills 5, Tot. Refills 5, Maintenance, 07/10/22 11:58:00 EDT, Route to Pharmacy Electronically, [facility] #[id number], Partial fill uponpatient request if the prescription [...] Maintenance, 07/11/2309:34:00 EDT, Route to Pharmacy Electronically, [facility] #[id number], Partial fill upon patient request if the prescription is for a schedule II... Start Date: 07/11/22 Status: Ordered Ibuprofen Refills 0, Maintenance, 05/30/20 8:20:00 EDT, Partial fill upon patient request if the prescriptionis for a schedule II opioid drug. Start Date: 05/30/20 Status: Ordered Multivitamin 0 Refills, Maintenance, 07/01/23 8:24:00 EDT, Partial fill upon patient request if the prescriptionis for a schedule II opioid drug. Start Date: 07/01/23 Status: Ordered Naproxen By Mouth, 0 Refills, Maintenance, 05/30/20 8:20:00 EDT, Partial fill upon patient request if the prescription is for a schedule II opioid drug. Start Date: 05/30/20 Status: Ordered omeprazole 20 mg oral delayed release tablet 1 tablet = 20 mg, By Mouth, 2 times a day, # 180 tablet, 0 Refills, Maintenance, 06/11/22 12:06:00 EDT, EC Tablet, [facility] #[id number], Partial fill upon patient request if the prescription is for a schedule II opioid drug., 180, cm, 06/10/22... Start Date: 06/11/22 Status: Ordered Tramadol By Mouth, 0 Refills, Maintenance, 07/01/23 8:24:00 EDT, Partial fill upon patient request if the prescription is for a schedule II opioid drug. Start Date: 07/01/23 Status: Ordered Vitamin D 66407 iu oral capsule 50,000 International_Units, By Mouth, Daily, Refills 0, Maintenance, 07/01/23 8:24:00 EDT, Partial fill upon patient request if the prescription is for a schedule II opioid drug. Start Date: 07/01/23 Status: Ordered Social History Social History Type Response Smoking Status Never (less than 100 in lifetime) entered on: 05/30/20 Sex Laboratory * Event Display: Non BH Lab Results Authored Date: Radiology * Event Display: Ultrasound Abdomen, Non-BH Authored Date: Patient Care team information Care Team Personnel Name: Dean Bravo Position: Reference Physician Member Role: PCP Address: Address: [address] [place] [address]- Care Team Related Persons Name: KATHRYN LAGUNAS Address: [place], [place] Name: YRIS LAGUNAS Address: home [address] [place] [id number]
[2023-11-27] MEDS: methocarbamoL 750 MG TABLET PO (07:54)
[2023-11-27] MEDS: Gabapentin 300 MG CAPSULE PO (07:54)
[2023-11-27] MEDS: Lactated Ringers 1,000 ML 100 ML IVCONT (07:55)
--- NOTE | 2023-11-27 08:31 | MHC.SHP ---
Pre-Procedural Eval Section A - 24 Hr Update-Section A only Date of Service: 11/27/23 The patient is an INPATIENT: No Section B - Complete if H&P > 30 days Chief Complaint: Intervertebral disc disorders with radiculopathy, Details of Present Illness: Left lumbar radiculopathy Allergies: Allergies Allergy/AdvReac Type Severity Reaction Status Date / Time No Known Allergies Allergy Verified 11/18/23 08:54 Review of Systems Sugical H&P ROS: Negative: Constitution, Cardiovascular, Respiratory, Neurological, Psychiatric, Hem-Onc, Allergic/Immunologic, Gastrointestinal, Genitourinary, Musculoskeletal, Integumentary, Endocrine and Eyes/Ears/Nose/Throat Exam Surgical H&P Exam: Normal: HEENT, Normal: Heart, Normal: Lungs, Normal: Extremities, Normal: Abdomen, Normal: Skin and Normal: Neurological (Awake, alert) Plan Diagnosis/Plan: Unchanged I have reviewed the history and physical and performed a pertinent physical examination on my patient. No changes have occurred unless specified. Left L5-S1 microdiskectomy Time Spent With Patient Time: Total time managing care of this patient today __5__ minutes.
--- NOTE | 2023-11-27 08:40 | HO.ANESPROP2 ---
Documented by User: Annabella Givens NP 11/21/23 13:04 HPI - Anesthesia Eval Consult details Narrative: 42yo M for Left L5-S1 MicroLumbar discectomy PMFSH Active Problems Active Problems: All Active Problems Lumbar disc herniation with radiculopathy (Acute) Lumbar facet arthropathy (Acute) Post laminectomy syndrome (Acute) Lumbar radiculopathy (Acute) Neuropathy (Acute) Chest pain (Acute) Right anterior knee pain (Acute) HTN (hypertension) (Acute) Allergic rhinitis (Acute) Anemia (Acute) GERD (gastroesophageal reflux disease) (Acute) Sprain of ligament of cervical spine region (Acute) Lumbar spine pain (Acute) Testicular pain, left (Acute) Annual physical exam (Acute) Vitamin D deficiency (Acute) Renal colic (Acute) FERN (generalized anxiety disorder) (Acute) Screening for hypercholesterolemia (Acute) Screening for hypothyroidism (Acute) Screening for diabetes mellitus (DM) (Acute) Elevated uric acid in blood (Acute) Chronic lower back pain (Acute) Past Medical History Medical History (Updated 11/19/23 @ 07:26 by Dean Willis PA-C) COVID-19 Arthritis Neuropathy Anemia HTN (hypertension) GERD (gastroesophageal reflux disease) Anxiety Elevated uric acid in blood Chronic lower back pain Family History Family History Father Colon cancer, Onset Age: 47 CAD (coronary artery disease), Onset Age: 55 Mother Ovarian cancer Sister Arthritis Family history of problems with anesthesia: No Surgical History Surgical History Hx of lithotripsy Hx of circumcision Hx of hemorrhoidectomy Hx of cystoscopy History of esophagogastroduodenoscopy (EGD) H/O colonoscopy History of lumbar surgery History of Problems with Anesthesia: No Social History Social History Housing: House Are you a primary daycare manager to a significant other at home: No Do you presently have visiting nurse or other home services: No Alcohol intake: current Alcohol intake frequency: a few times a month Patient Tobacco Use Status: Never used Tobacco e-Cigarette/Vaping Use: Never Used Second Hand Smoke Exposure: No Use of substances other than those prescribed or required for medical reasons: No Have you been hit, kicked, punched, or otherwise hurt by someone within the past year? If so, by whom?: No Are you DNR?: No Advance Directives: No Advance Directives Information Provided: Yes Advance Directives on File: No Recently lost weight without trying: No Eating poorly because of decreased appetite: No Nutrition Risks: No Nutritional Risk Poor oral hygiene: No service: No Current occupational status: employed Current occupation: [employer]- remote from home Current occupational exposures/hazards: No Cognitive needs: No Hearing needs: No Vision needs: Yes Meds Allergies Allergy/AdvReac Type Severity Reaction Status Date / Time No Known Allergies Allergy Verified 11/18/23 08:54 Home Medications ?Medication ?Instructions ?Recorded ?Confirmed ?Last Taken ?Type ginkgo biloba 40 mg tablet 40 mg PO DAILY 11/14/23 11/27/23 Unknown History lidocaine 5 % topical patch 1 patch topical DAILY PRN Pain 11/14/23 11/27/23 Unknown History methocarbamol 500 mg tablet 750 mg PO TID PRN Muscle Spasm 11/14/23 11/27/23 Unknown History multivitamin 1 tab PO DAILY 11/14/23 11/27/23 Unknown History naproxen 250 mg tablet 250 mg PO DAILY PRN Pain 11/14/23 11/27/23 Unknown History tramadol 50 mg tablet 50 mg PO TID PRN pain 11/14/23 11/27/23 Unknown History clonidine HCl 0.1 mg tablet 0.1 mg PO BEDTIME PRN Anxiety 11/18/23 11/27/23 Unknown History Exam Height,Weight and Vital Signs: Height 5 ft 11 in Weight 84.368 kg Pertinent Lab Results Pertinent Lab Results: Laboratory Tests 04/13/23 09:42 WBC 6.6 Hgb 13.9 L Hct 42.7 Plt Count 281 Sodium 143 Potassium 3.8 Chloride 104 Carbon Dioxide 32 H BUN 15 Creatinine 1.02 Narrative Narrative: EKG 02/2023 Vent. Rate : 061 BPM Atrial Rate : 061 BPM P-R Int : 136 ms QRS Dur : 088 ms QT Int : 394 ms P-R-T Axes : 035 058 034 degrees QTc Int : 396 ms Normal sinus rhythm Normal ECG When compared with ECG of 07-MAR-2015 12:58, Sinus rhythm has replaced Ectopic atrial rhythm Assessment and Plan Assessment Anesthesia Assessment: Chart Reviewed Final Anesthetic Review Family History of Problems with Anesthesia: No History of Problems with Anesthesia: No Documented by User: Susannah Altamirano DO 11/27/23 08:52 [facility] Past Medical History Medical History (Updated 11/19/23 @ 07:26 by Dean Willis PA-C) COVID-19 Arthritis Neuropathy Anemia HTN (hypertension) GERD (gastroesophageal reflux disease) Anxiety Elevated uric acid in blood Chronic lower back pain Family History Family History Father Colon cancer, Onset Age: 47 CAD (coronary artery disease), Onset Age: 55 Mother Ovarian cancer Sister Arthritis Family history of problems with anesthesia: No Surgical History Surgical History Hx of lithotripsy Hx of circumcision Hx of hemorrhoidectomy Hx of cystoscopy History of esophagogastroduodenoscopy (EGD) H/O colonoscopy History of lumbar surgery History of Problems with Anesthesia: No Social History Social History Housing: House Are you a primary daycare manager to a significant other at home: No Do you presently have visiting nurse or other home services: No Alcohol intake: current Alcohol intake frequency: a few times a month Patient Tobacco Use Status: Never used Tobacco e-Cigarette/Vaping Use: Never Used Second Hand Smoke Exposure: No Use of substances other than those prescribed or required for medical reasons: No Have you been hit, kicked, punched, or otherwise hurt by someone within the past year? If so, by whom?: No Are you DNR?: No Advance Directives: No Advance Directives Information Provided: Yes Advance Directives on File: No Recently lost weight without trying: No Eating poorly because of decreased appetite: No Nutrition Risks: No Nutritional Risk Poor oral hygiene: No service: No Current occupational status: employed Current occupation: [employer]- remote from home Current occupational exposures/hazards: No Cognitive needs: No Hearing needs: No Vision needs: Yes Meds Allergies Allergy/AdvReac Type Severity Reaction Status Date / Time No Known Allergies Allergy Verified 11/18/23 08:54 Home Medications ?Medication ?Instructions ?Recorded ?Confirmed ?Last Taken ?Type ginkgo biloba 40 mg tablet 40 mg PO DAILY 11/14/23 11/27/23 Unknown History lidocaine 5 % topical patch 1 patch topical DAILY PRN Pain 11/14/23 11/27/23 Unknown History methocarbamol 500 mg tablet 750 mg PO TID PRN Muscle Spasm 11/14/23 11/27/23 Unknown History multivitamin 1 tab PO DAILY 11/14/23 11/27/23 Unknown History naproxen 250 mg tablet 250 mg PO DAILY PRN Pain 11/14/23 11/27/23 Unknown History tramadol 50 mg tablet 50 mg PO TID PRN pain 11/14/23 11/27/23 Unknown History clonidine HCl 0.1 mg tablet 0.1 mg PO BEDTIME PRN Anxiety 11/18/23 11/27/23 Unknown History Exam Exam Date and Time: 11/27/23 0840 Height,Weight and Vital Signs: Height 5 ft 11 in Weight 84.368 kg Vital Signs Temperature 97.8 F 11/27/23 08:03 Pulse Rate 65 11/27/23 08:03 Respiratory Rate 16 11/27/23 08:03 Blood Pressure 146/96 H 11/27/23 08:03 Pulse Oximetry 99 11/27/23 08:03 Oxygen Delivery Method Room Air 11/27/23 08:03 Temperature 97.8 F 11/27/23 08:03 Pulse Rate 65 11/27/23 08:03 Respiratory Rate 16 11/27/23 08:03 Blood Pressure 146/96 H 11/27/23 08:03 Pulse Oximetry 99 11/27/23 08:03 Oxygen Delivery Method Room Air 11/27/23 08:03 Airway Mallampati Class: II TM Dist: >3cm Neck ROM: Full Loose/Missing/Broken Teeth: No (patient denies any loose or broken teeth) Heart: S1S2 Lungs: CTAB Assessment and Plan Assessment Anesthesia Assessment: Anesthesia Plan Discussed and Chart Reviewed Final Anesthetic Review Family History of Problems with Anesthesia: No History of Problems with Anesthesia: No NPO: Yes ASA Class: II Final Preanesthetic Review: No Changes in Pt Med Stat, Meds/Allgs Chart Reviewed, Consent Obtained/Reviewed and Anes Risks/Benef Reviewed Patient Risk: Low Procedure Risk: Intermediate Anesthetic Plan Anesthetic Plan: GA and Agree w/ Assess. and Plan Disposition: Standard PACU
--- NOTE | 2023-11-27 08:40 | PM.DS ---
DS: Providers Provider Date of Service: 11/27/23 Primary care physician: Dean Willis PA-C DS: Summary Time Attestation Discharge Coordination Time (in mins): 15 Quality: Safe Use of Opioids Does Pt have an Active Cancer Diagnosis on the Problem List?: No Quality: Stroke Does the patient have a stroke diagnosis?: No Physical Exam Vital Signs: Vital Signs: Last Vital Signs Temp 97.8 F 11/27/23 08:03 Pulse 65 11/27/23 08:03 Resp 16 11/27/23 08:03 BP 146/96 H 11/27/23 08:03 Pulse Ox 99 11/27/23 08:03 O2 Del Method Room Air 11/27/23 08:03 BMI result Body Mass Index 25.9 Discharge Plan Discharge Patient Disposition: Home, Self-Care Referrals: Dean Willis PA-C [Primary Care Provider] - 1 Week Discharge Medications: New oxycodone 5 mg tablet 5 mg PO Q6H PRN (Reason: severe pain (scale score 7-10)) Qty: 30 0RF Rx Instructions: Partial Fill upon patient request. Continued cetirizine 10 mg tablet 10 mg PO DAILY 60 Days Qty: 60 2RF methocarbamol 500 mg tablet 750 mg PO TID PRN (Reason: Muscle Spasm) multivitamin Tablet 1 tab PO DAILY cyclobenzaprine 5 mg tablet 5 mg PO Q12H PRN (Reason: muscle spasm) Qty: 10 0RF lisinopril 5 mg tablet 5 mg PO DAILY 90 Days Qty: 90 1RF clonidine HCl 0.1 mg tablet 0.1 mg PO BEDTIME PRN (Reason: Anxiety) Held naproxen 250 mg tablet 250 mg PO DAILY PRN (Reason: Pain) Hold Instructions: Resume on 11/28/23. lidocaine 5 % adhesive patch,medicated 1 patch topical DAILY PRN (Reason: Pain) Hold Instructions: Resume on 12/04/23. Rx Instructions: leave on most painful area for up to 12 hrs tramadol 50 mg tablet 50 mg PO TID PRN (Reason: pain) Hold Instructions: Resume on 12/11/23. Take prescribed oxycodone, may resume when Rx is complete ginkgo biloba 40 mg Tablet 40 mg PO DAILY Hold Instructions: Resume on 12/04/23. Rx Instructions: give with meal/snack Discharge Orders: Discharge Order (Routine); Ordered 11/27/23 Ordered By: Trevor Gurrola Diet: Advance to usual diet Activity on Discharge: As tolerated Activity Restrictions/Additional Instructions: Activity: It is normal to feel some discomfort as you increase your activity, but that will improve with time. We ask you avoid heavy lifting or acitivities that cause pain. As a general rule, 8lbs is a safe limit for lifting right after surgery. Walk as much as you feel comfortable but not to exhaustion. You will feel extra tired the first few days after surgery. Stay well hydrated. It is OK to walk up and down stairs You may return to driving when you are off narcotics (such as vicodin, oxycodone, dilaudid, etc), and you are back to normal functional capacity. If you have any concerns please check with office before driving. Return to work is specific to each patient and each surgery, so please speak with your doctor/PA at first follow up. Please bring paperwork such as FMLA at that time if you need it filled out. Medications: We recommend you take 1,000mg Tylenol every 8 hours for the first few weeks after surgery, if you do not have any liver issues and can tolerate this medication. Do not exceed 4,000mg daily. We will give you a short supply of narcotics after surgery (usually one weeks worth). If you need more please call the office but do not use more than prescribed. You will need to give our office 48 hours notice if you need narcotics refilled and we do not fill narcotics on weekends or evenings. If you are on a narcotic, it is a good idea to take a stool softener such as colace or senna to avoid constipation If you take blood thinner such as aspirin, Plavix, Coumadin, Effient, Eliquis etc for conditions such as Afib, DVT, Pulmonary embolus, coronary disease, stents etc please speak with your surgeon about specific details as to when you can resume these medications. Follow up: Please call the office, , after surgery to arrange a 3 week follow up for wound check. Wound Care: You may remove your dressing on the first day after surgery. ?You may ?leave open to air. Please do not remove the steri strips underneath. they will fall off on their own in one week. IT IS NORMAL FOR THE WOUND TO OOZE OR BE BLOODY FOR A FEW DAYS AFTER SURGERY. ?IF THIS HAPPENS JUST PLACE NEW DRESSING OVER IT TO AVOID STAINING CLOTHES. You may shower on post op day # 1 We ask that you do not let the water soak the wound. If it does get wet, just towel dry lightly. Please do not scrub your incision or place any type of chemical/ointment on the wound. No tub baths, pools or jacuzzis for one month. If you have any leaking or redness from your wound, or fevers, please call the office. Print Language: Ukrainian Print Language: Ukrainian
--- NOTE | 2023-11-27 10:53 | P.OP_ITS ---
Operative Note Operative Note Date of Service: 11/27/23 Narrative: Preoperative diagnosis: Left S1 radiculopathy due to disc herniation Postoperative diagnosis: Same Procedure: Left L5-S1 microdiskectomy with microscope Surgeon: Biju Morales MD, PhD Maintenance Carpenter: KAMLESH Bangura This 42-year-old male suffering from a left S1 radiculopathy. MRI shows small disc bulge compressing the left S1 nerve root. The patient was offered a microdiskectomy to decompress the nerve root. The procedure complications were explained. The patient was consented. The patient was brought to the operating room and endotracheally intubated. The patient was turned in a prone position on the Nestor frame. Prepping and draping was done followed by time-out. A mid lumbar incision was made followed by release of the paravertebral muscles on the left side to expose the L5-S1 interspace. An intraoperative x-rays obtained to confirm the correct level. The microscope was brought in. A L5 laminotomy was done followed by opening of the flavum ligament. The S1 nerve root was identif ied and retracted medially to expose the L5-S1 disc space. I could palpate a small disc herniation medial from the S1 nerve root, which I carefully removed with a pituitary. The disc space was inspected and any residual disc fragments were removed. This resulted in an excellent decompression of the S1 nerve root. Hemostasis was done. The microscope was removed. Marcaine was injected intramuscularly.The incision was closed in two layers. Steri-Strips used to approximate the incision. An op-site were taken there was used to cover the incision. All sponge and needle counts were correct. Patient was extubated and transported in stable condition to recovery room. this procedure was done with the aid of a physician food and beverage assistant manager who performed the initial exposure until the microscope was brought in and performed the closure of the incision. Anesthesia: General Blood loss: 10 mL Complications: None Specimen: None Surgical time: Disposition: Discharge home
[2023-11-27] MEDS: fentaNYL citrate/PF 100 MCG/2 ML VIAL 50 MCG IVPUSH ×3 (11:45→12:10)
== END 2023-11-27 12:57 | disposition home or self-care (01) ==
PROVIDERS: PCP Physician Assistant; Visit Provider Neurological Surgery
PROC: (CPT 63030; principal; 2023-11-27 10:00)
DX: M51.16 Intervertebral disc disorders with radiculopathy, lumbar region (principal); G89.29 Other chronic pain; M54.50 Low back pain, unspecified; G62.9 Polyneuropathy, unspecified; I10 Essential (primary) hypertension
CPT/HCPCS: 63030; J0131; J0690; J1100; J1885; J2003; J2250; J2405; J2704; J3010

== ENCOUNTER → 2023-11-27 07:27 | Outpatient (BNV) | payer OTHER, SELFPAY | PROVIDERS: PCP Physician Assistant; Visit Provider Neurological Surgery | DX: M51.16 Intervertebral disc disorders with radiculopathy, lumbar region (principal) | CPT/HCPCS: 63030; 99499 ==

== ENCOUNTER 2023-12-18 09:01 | Outpatient (AMB) | payer OTHER, SELFPAY ==
--- NOTE | 2023-12-18 09:14 | A.SPINEOV_ITS ---
Intake Visit Reasons: 1st post op Intake Note: Mr.Valentin Dunlap is here today for his 1st post op. Chainstitch Zipper Setter Required: No Allergies No Known Allergies Allergy (Verified 12/18/23 09:16) Assessment & Plan Assessment & Plan (1) Lumbar disc herniation with radiculopathy: Code(s): M51.16 - Intervertebral disc disorders with radiculopathy, lumbar region Category: Medical Plan Procedure: Left L5-S1 microdiskectomy Chilo is a pleasant 42-year-old male who comes in today for a 1st postoperative visit after having a left-sided L5-S1 microdiskectomy completed. He reports that the bulk of his radicular pain and back pain has resolved since the surgery. He is completing his ADLs without much issue. He still has intermittent times where he will have return of pain predominantly a tingling/pins and needles feeling in his left lower extremity if he pushes himself beyond what he should be doing for his postoperative restrictions. Overall he is doing very well and I answered all of his questions to the best of my ability. No new neurological deficits. He ambulates well without an antalgic gait. His posterior incision site is closed and well healing. I would like to follow up with Chilo again in 6 weeks to ensure he is continuing to do well. Trevor Morales MD,PhD [facility] Coding Level of Care Code Global (29001) Diagnoses Lumbar disc herniation with radiculopathy M51.16
== END 2023-12-18 09:30 | disposition home or self-care (01) ==
LOC: HO.HNS 09:02
PROVIDERS: PCP Physician Assistant; Visit Provider Physician Assistant
DX: M51.16 Intervertebral disc disorders with radiculopathy, lumbar region (principal)
CPT/HCPCS: 99024

== ENCOUNTER → 2023-12-18 09:01 | Outpatient (BNVA) | payer OTHER, SELFPAY | PROVIDERS: PCP Physician Assistant; Visit Provider Physician Assistant ==

== ENCOUNTER 2024-01-29 08:55 | Outpatient (AMB) | payer OTHER, SELFPAY ==
--- NOTE | 2024-01-29 09:01 | HO.SPINEOV ---
Intake Visit Reasons: 2nd post op Intake Note: Mr. Mcgill is here today for his 2nd post op. Patient Financial Coordinator Required: No Allergies No Known Allergies Allergy (Verified 01/29/24 09:03) Assessment & Plan Assessment & Plan (1) Lumbar disc herniation with radiculopathy: Code(s): M51.16 - Intervertebral disc disorders with radiculopathy, lumbar region Category: Medical Plan Procedure: Left L5-S1 microdiskectomy Chilo comes in today for his 2nd postop visit. To recap he previously had a left L5-S1 microdiscectomy completed by Dr. Morales. He was accompanied by his today for support He was previously doing well during his last office visit, and reported resolution of the bulk of his pre-op symptoms. He onyl reported some tingling/pins and needles feeling in his left lower extremity if he pushed himself beyond what he should be doing. Today, he reports continuation of this pain despite attempting to remain less active. He recently went and saw his primary care physician and obtained a script of tramadol to help mitigate the pain. We discussed the postoperative healing course and I answered all of his questions to the best of my ability. No new neurological deficits. Patient is able to ambulate well, rises from a seated position without difficulty. Incision sites are closed, well healing, with no signs of drainage. I would like to send Chilo for a course of physical therapy and will follow up with him again in the office. Hopefully they can work out the last of his residual symptoms. If they are unable to, I may consider repeat MRI of the lumbar spine with gadolinium, and the potential for left-sided cortisone injections. Trevor Morales MD,PhD [facility] Coding Level of Care Code Global (03318) Diagnoses Lumbar disc herniation with radiculopathy M51.16
== END 2024-01-29 09:37 | disposition home or self-care (01) ==
PROVIDERS: PCP Physician Assistant; Visit Provider Physician Assistant
DX: M51.16 Intervertebral disc disorders with radiculopathy, lumbar region (principal)
CPT/HCPCS: 99024

== ENCOUNTER 2024-03-16 07:03 | Outpatient (RCR) | payer OTHER, SELFPAY | END 2024-04-07 11:37 | disposition home or self-care (01) | LOC: HO.PT 07:03 | PROVIDERS: PCP Physician Assistant; Visit Provider Physician Assistant | DX: M51.16 Intervertebral disc disorders with radiculopathy, lumbar region (principal); Z98.890 Other specified postprocedural states | CPT/HCPCS: 97110; 97161 ==

== ENCOUNTER 2024-04-26 16:43 | Outpatient (REF) | payer OTHER, SELFPAY ==
--- NOTE | ~2024-04-26 | XR_ITS ---
EXAMINATION: XR HAND 1-2 VIEWS RIGHT, XR WRIST 1-2 VIEWS RIGHT HISTORY: M79.641 - Pain in right hand COMPARISON: Comparison is made with the prior examination of the right hand and wrist dated 04/08/2023. FINDINGS: Seven views of the right hand and wrist including a scaphoid view are submitted. Again seen is a benign-appearing well-circumscribed ovoid lucency in the distal phalanx of the index finger with a sclerotic rim. Osseous mineralization is otherwise normal. There is no fracture or dislocation. The joint spaces are preserved. The soft tissues are unremarkable. XR/XR wrist RT 2V IMPRESSION: No evidence of fracture of the right hand or wrist. Electronically signed by: Alejandro Bowles MD 04/27/2024 08:13 AM EDT
--- NOTE | ~2024-04-26 | XR_ITS ---
EXAMINATION: XR HAND 1-2 VIEWS RIGHT, XR WRIST 1-2 VIEWS RIGHT HISTORY: M79.641 - Pain in right hand COMPARISON: Comparison is made with the prior examination of the right hand and wrist dated 04/08/2023. FINDINGS: Seven views of the right hand and wrist including a scaphoid view are submitted. Again seen is a benign-appearing well-circumscribed ovoid lucency in the distal phalanx of the index finger with a sclerotic rim. Osseous mineralization is otherwise normal. There is no fracture or dislocation. The joint spaces are preserved. The soft tissues are unremarkable. XR/XR hand RT 2V IMPRESSION: No evidence of fracture of the right hand or wrist. Electronically signed by: Alejandro Bowles MD 04/27/2024 08:13 AM EDT
== END 2024-04-26 16:44 | disposition home or self-care (01) ==
LOC: HO.XRAY 16:43
PROVIDERS: PCP Physician Assistant; Visit Provider Physician Assistant
DX: M79.641 Pain in right hand (principal); M25.531 Pain in right wrist
CPT/HCPCS: 73100; 73120

== ENCOUNTER → 2024-04-26 16:46 | Outpatient (BNV) | payer OTHER, SELFPAY | PROVIDERS: PCP Physician Assistant; Visit Provider Radiology Diagnostic Radiology | DX: M79.641 Pain in right hand (principal) | CPT/HCPCS: 73100; 73120 ==

== ENCOUNTER 2024-05-19 10:23 | Outpatient (AMB) | payer OTHER, SELFPAY ==
[2024-05-19 10:46] VITALS: BP 142/102; PULSE 88; TEMP 36.3; O2SAT 98; BMI 27.6
--- NOTE | 2024-05-19 10:46 | MHC.PC.OV ---
Vital Signs 05/19/24 10:46 Height 5 ft 11 in Weight 198 lb BMI 27.6 BP 142/102 H Blood Pressure Location Lt brachial Position Sitting Pulse 88 Pulse Source Pulse Oximeter Temp 97.3 F Temp Source Temporal Artery Scan Pulse Oximetry (%) 98 Oxygen Delivery Method Room Air Intake Visit Reasons: annual exam Supervisor Calibration Required: No Accompanied by: Self / Same As Patient Allergies No Known Allergies Allergy (Verified 05/19/24 11:03) Medication List - Last Reconciled 05/19/24 by Dean Willis PA-C cetirizine 10 mg PO DAILY 60 days clonidine HCl 0.1 mg PO BEDTIME PRN 30 days cyclobenzaprine 5 mg PO Q12H PRN ginkgo biloba 40 mg PO DAILY lidocaine 5% 1 patch topical DAILY PRN lisinopril 5 mg PO DAILY 90 days methocarbamol 750 mg PO TID PRN multivitamin 1 tab PO DAILY naproxen 250 mg PO BID PRN 10 days oxycodone 5 mg PO Q8H PRN sennosides (senna) 8.6 mg PO BEDTIME PRN 30 days tramadol 50 mg PO Q8H PRN 5 days Tobacco use date assessed: 03/10/23 Dental Screening Dental Screen Date: 03/10/23 HPI annual exam HPI Details Patient is a 43-year-old male here today routine annual physical. Patient has a past medical history significant for generalized anxiety disorder, nephrolithiasis. Concern--> The patient has symptoms suggestive of fibromyalgia and notes a correlation between stress and physical symptoms including joint pain. He experiences gastrointestinal symptoms thought to be related to IBS, influenced by his stress levels, which improve as the week progresses. Dietary adjustments and past medication usage are reported in his management efforts. Hypertension: Has not been taking lisinopril 5 mg as he felt it was not effective. Blood pressure still remains elevated. He is willing to try losartan 25 mg for better blood pressure control.. He reports his high blood pressures are usually at times of increased stress and anxiety over personal matters at home. He reports his chest pain has essentially resolved. Also his home stress has gotten much better FERN:? Has been using Clonidine 0.1 mg on a p.r.n. basis with good effect of reducing his anxiety.? City is triggered by family issues.. He is interested in cognitive behavioral therapy again. . Lumbar disc disease: He is status post lumbar disc surgery in 2006. Patient has seen neurosurgeon here in [place] as he has been having more lower back pain with radiculopathy requiring more pain medication to be used. He is due for microdiskectomy this month. He does use tramadol 50 mg as needed. He has tried a higher dose of tramadol though felt side effect. Colonoscopy:? Done March 2020 polyp found ( Tubular adenoma) Repeat 5 years. - family history of Colon cancer. Vaccines:? Up-to-date with COVID vaccine, up-to-date with tetanus vaccine?, declines flu vaccine. [facility] Medical History COVID-19 Arthritis Neuropathy Anemia HTN (hypertension) GERD (gastroesophageal reflux disease) Anxiety Elevated uric acid in blood Chronic lower back pain Surgical History Hx of lithotripsy Hx of circumcision Hx of hemorrhoidectomy Hx of cystoscopy History of esophagogastroduodenoscopy (EGD) H/O colonoscopy History of lumbar surgery Family History Father Colon cancer, Onset Age: 47 CAD (coronary artery disease), Onset Age: 55 Mother Ovarian cancer Sister Arthritis Social History (Updated 05/19/24 @ 11:02 by Dean Willis PA-C) Housing: House Are you a primary direct care staffer to a significant other at home: No Do you presently have visiting nurse or other home services: No Alcohol intake: current Alcohol intake frequency: a few times a month Alcohol type: beer Patient Tobacco Use Status: Never used Tobacco e-Cigarette/Vaping Use: Never Used Second Hand Smoke Exposure: No service: No Current occupational status: employed 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 1. Little interest or pleasure in doing things: nearly every day 2. Feeling down, depressed, or hopeless: more than half the days 3. Trouble falling or staying asleep, or sleeping too much: more than half the days 4. Feeling tired or having little energy: more than half the days 5. Poor appetite or overeating: more than half the days 6. Feeling bad about yourself - or that you are a failure or have let yourself or your family down: more than half the days 7. Trouble concentrating on things, such as reading the newspaper or watching television: more than half the days 8. Moving or speaking so slowly that other people could have noticed. Or the opposite - being so fidgety or restless that you have been moving around a lot more than usual: more than half the days 9. Thoughts that you would be better off or of hurting yourself in some way: more than half the days Total score: 19 Depression Screening Interpretation: Positive Depression Screening Follow-up: Existing condition and Community Mental Health Worker F/U Depression Screening Done: Yes 04817 - PHQ-9 Billing: Yes Source: Developed by Drs. Alejandro Joseph, Krystina Askew, Lopez Ellison and colleagues, with an educational jose from [employer]. Thrive Questionnaire Date Thrive assessed: 05/19/24 I am a: Patient What is your living situation today?: I have a steady place to live Within the past 12 months, did the food you bought not last and you didn't have the money to get more?: Never true Within the past 12 months, did you worry whether your food would run out before you got money to buy more?: Never true Do you have trouble paying for medicines?: No Do you have trouble getting transportation to medical appointments?: No Do you have trouble paying your heating and electricity bill?: No Do you have trouble taking care of your child, family member or friend?: No Do you have trouble with day-to-day activities such as bathing, preparing meals, shopping, managing finances, etc.?: No Are you currently unemployed and looking for a job?: No Are you interested in more education?: No Please select the resources that you would like help with: None Currently or been in a relationship where the following occur: I choose not to answer THRIVE Score: 0 AUDIT C Alcohol Use Questionnaire (AUDIT-C) 1. How often do you have a drink containing alcohol?: Never 3. How often do you have six or more drinks on one occasion?: Never Total Score: 0 FERN-7 AMB Questionnaire FERN-7 Date FERN - 7 assessed: 05/19/24 Feeling nervous, anxious, or on edge: 0 = Not at all Not being able to stop or control worryin = Not at all Worrying too much about different things: 0 = Not at all Trouble relaxin = Not at all Being so restless that it is hard to sit still: 0 = Not at all Becoming easily annoyed or irritable: 0 = Not at all Feeling afraid as if something awful might happen: 0 = Not at all Total FERN-7 score (0-4 normal; 5-9 mild; 10-14 moderate; 15-21 severe): 0 Source: Developed by Drs. Alejandro Joseph, Krystina Askew, Lopez Ellison and colleagues, with an educational jose from [employer]. FERN-7 Assessment Billing FERN-7 Assessment Tool: FERN-7 Assessment 08123 Review of Systems Const Denies body aches, Denies chills, Denies excessive sweating, Denies fatigue, Denies fever(s) and Denies headache(s) Eyes Denies blurry vision ENT Denies dysphagia, Denies vertigo, Denies dizziness, Denies headache(s), Denies hearing loss, Reports neck pain and Denies tinnitus Card Denies chest pain, Denies chest pain with activity, Denies syncope, Denies irregular heart rhythm and Denies dyspnea Resp Denies chest congestion, Denies cough, Denies hemoptysis, Denies dyspnea and Denies wheezing GI Denies abdominal pain, Denies melena, Denies hematochezia, Denies coffee ground emesis, Denies dysphagia, Denies diarrhea, Denies nausea and Denies vomiting Denies difficulty urinating, Denies dysuria, Denies urinary frequency, Denies urinary hesitancy and Denies urinary urgency Musc Reports back pain, Reports arthralgias, Denies limited range of motion, Denies muscle cramps, Denies muscle weakness and Reports neck pain Skin/Breast Denies rash and Denies skin ulcer Neuro Denies Abnormal speech present, Denies confusion, Denies vertigo, Denies dizziness, Denies syncope, Denies headache(s), Denies memory loss and Denies seizure-like activity Psych Denies anxiety, Denies confusion, Denies depression, Denies memory loss, Denies panic attacks and Denies paranoia Endo Denies excessive sweating, Denies fatigue, Denies flushing, Denies polydipsia and Denies polyuria Aller/Immun Denies wheezing Physical exam (Primary Care) Vital Signs: Last Vital Signs Temp 97.3 F 05/19/24 10:46 Pulse 88 05/19/24 10:46 BP 142/102 H 05/19/24 10:46 Pulse Ox 98 05/19/24 10:46 Oxygen Delivery Method Room Air 05/19/24 10:46 BMI result Body Mass Index 27.6 Tobacco/Smoking Status: Tobacco use Status Tobacco use date assessed 03/10/23 05/19/24 10:48 Patient Tobacco Use Status Never used Tobacco 05/19/24 11:02 e-Cigarette/Vaping Use Never Used 05/19/24 11:02 PHQ-9: PHQ-9 Score PHQ-9: Total score 19 05/19/24 11:22 Depression Screening Interpretation: Positive Depression Screening Follow-up: Existing condition and Community Mental Health Worker F/U Thrive Assessment: Date of Thrive Assessment Date Thrive assessed 05/19/24 05/19/24 10:56 Currently or been in a relationship where the following occur: I choose not to answer Const General: cooperative, comfortable, no acute distress, alert and awake; No confusion Orientation/consciousness: oriented to person, oriented to place, patient oriented x3 and No confusion HENMT Head: Yes normocephalic Ears: external ears normal and TM's normal bilaterally Face and sinus: No sinus tenderness Mouth: Normal oral and palatal mucosa present and tongue normal Teeth and gingiva: dentition normal and gingiva normal Throat: Yes posterior oropharynx normal, Yes tonsils normal and Yes uvula midline Eyes Conjunctivae: conjunctivae normal Sclerae: sclerae normal Pupils: Equal, round and reactive pupils present EOM: EOMs intact bilaterally Direct Ophthalmoscopy: No no photophobia Neck Neck: Yes no lymphadenopathy, No tender and Yes no JVD Thyroid: Thyroid normal Carotids: no bruits Chest Chest palpation & inspection: no tenderness Resp Effort & Inspection: normal respiratory effort, no audible wheezes, not labored and no stridor Auscultation: no crackles, no rales, no rhonchi and no wheezes Cardio Jugular venous distension: no JVD Rate: regular rate, not bradycardic and not tachycardic Rhythm: regular rhythm Bruits: no carotid bruits Peripheral pulses: Peripheral pulses 2+ throughout GI Inspection: Yes normal to inspection, No abdominal wall ecchymosis and No visible herniation Palpation (GI): Soft to palpation, nontender, no guarding, not rigid and No hepatosplenomegaly present Auscultation: normoactive bowel sounds General: Yes no CVA tenderness Back/Spine/Pelvis Back: no CVA tenderness and No back tenderness Cervical Spine: cervical ROM normal Thoracic/Lumbar Spine: thoracic and lumbar spine normal to inspection, straight leg raise negative bilaterally, No thoraco-lumbar ROM limited and No lumbar spinal tenderness Skin Lesions: no lesions Rashes: no rashes Wounds: no wounds Neuro General: oriented to person, oriented to place, patient oriented x3, CN's II-XI intact bilaterally and No confusion Cranial nerves: Yes Equal, round and reactive pupils present and Yes Normal accommodation reflex present Cognition (Neuro): normal cognition Speech: No Abnormal speech present Gait exam (Neuro): Normal gait present Motor exam (neuro): 5/5 motor strength present throughout Extrem Right upper extremity: full ROM; no cyanosis Left upper extremity: full ROM; no cyanosis Right lower extremity: no edema Left lower extremity: no edema Psych Appearance: grossly normal Mental Status: mental status grossly normal Affect: normal affect Attitude: cooperative Thought process: Normal thought process present Coding Level of Care Code Est Pt Prev Care 40-64y(60065) Diagnoses Annual physical exam Z00.00 Primary hypertension I10 Hypertension type: primary hypertension FERN (generalized anxiety disorder) F41.1 Lumbar disc herniation with radiculopathy M51.16 Additional Codes FERN-7 Assessment Billing - FERN-7 Assessment Tool: FERN-7 Assessment 70247 ([id number]) PHQ-9 - 77459 - PHQ-9 Billing: Yes ([id number]) Assessment & Plan Assessment & Plan (1) Annual physical exam: Code(s): Z00.00 - Encounter for general adult medical examination without abnormal findings Category: Medical Plan: As per HPI (2) HTN (hypertension): Code(s): I10 - Essential (primary) hypertension Category: Medical Qualifiers: Hypertension type: primary hypertension Qualified Code(s): I10 - Essential (primary) hypertension Plan: Patient's blood pressure today in elevated today in office. Will transitioned to losartan 25 mg for better blood pressure control Advised patient to monitor blood pressure at home. Goal blood pressure to remain below 140/90. (3) FERN (generalized anxiety disorder): Code(s): F41.1 - Generalized anxiety disorder Category: Medical Plan: Patient's FERN-7 score positive for anxiety which has been existing condition for him. He reports he has a lot of personal issues at home that cause him stress and anxiety. He does use clonidine on an as needed basis for his anxiety. He is interested in speaking with a mental health therapist again. (4) Lumbar disc herniation with radiculopathy: Code(s): M51.16 - Intervertebral disc disorders with radiculopathy, lumbar region Category: Medical Plan: As per HPI patient has a history of lumbar disc disease and is status post surgery a few years ago. He does use tramadol from time to time to help his pain. He is also using NSAIDs on a daily basis which could be the reason for a bit of his higher blood pressures. He is willing to try to incorporate acetaminophen 650 for pain relief as well. Orders: Referrals Counseling Referral F41.1 - Generalized anxiety disorder Medications: New losartan 25 mg PO DAILY 30 days 30 tabs 1RF I10 - Essential (primary) hypertension acetaminophen ER (Tylenol Arthritis Pain) 650 mg PO Q12H 30 days 60 tabs 2RF M19.90 - Unspecified osteoarthritis, unspecified site, M51.16 - Intervertebral disc disorders with radiculopathy, lumbar region Refilled naproxen 250 mg PO BID 10 days PRN 20 tabs 1RF pain M51.16 - Intervertebral disc disorders with radiculopathy, lumbar region Discontinued lisinopril Discontinued Reason: Doctor's Order 5 mg PO DAILY 90 days 90 tabs 1RF I10 - Essential (primary) hypertension
== END 2024-05-19 11:22 | disposition home or self-care (01) ==
LOC: HO.HMCH 10:24
PROVIDERS: PCP Physician Assistant; Visit Provider Physician Assistant
DX: Z00.00 Encounter for general adult medical examination without abnormal findings (principal); I10 Essential (primary) hypertension; F41.1 Generalized anxiety disorder; M51.16 Intervertebral disc disorders with radiculopathy, lumbar region

== ENCOUNTER → 2024-05-19 10:23 | Outpatient (BNVA) | payer OTHER, SELFPAY | PROVIDERS: PCP Physician Assistant; Visit Provider Physician Assistant | DX: Z00.00 Encounter for general adult medical examination without abnormal findings (principal); I10 Essential (primary) hypertension; F41.1 Generalized anxiety disorder; M51.16 Intervertebral disc disorders with radiculopathy, lumbar region | CPT/HCPCS: 96127 ==

== ENCOUNTER 2024-05-29 10:21 | Outpatient (REF) | payer OTHER, SELFPAY ==
[2024-05-29 10:39] LABS: Hematocrit 41.4 % (42.0-52.0); Hemoglobin 13.6 g/dl (14.0-18.0); Mean Corpuscular HGB Conc 32.9 g/dl (31.0-36.0); Mean Corpuscular Hemoglobin 24.5 pg (27.0-33.0); Mean Corpuscular Volume 74.5 fL (80.0-98.0); Mean Platelet Volume 8.6 fL (9.4-12.4); Platelet Count 289 X10*3/uL (160-400); Red Blood Count 5.56 X10*6/uL (4.60-5.80); Red Cell Distribution Width 14.7 % (11.0-16.0); White Blood Count 6.8 X10*3/uL (4.8-10.8)
[2024-05-29 11:10] LABS: Creatinine Urine 291.69 mg/dL; Microalbum/Creatinine Ratio Ur 5.1 ug/mg cr (<30)
[2024-05-29 11:13] LABS: Anion Gap 10 (12-20)
[2024-05-29 11:15] LABS: Alanine Aminotransferase 48 U/L (0-40); Albumin Level 4.4 g/dL (3.5-5.0); Aspartate Amino Transferase 25 U/L (5-37); Bilirubin Total 0.4 mg/dL (0.0-1.0); Blood Urea Nitrogen 12 mg/dL (9-16); Calcium 9.3 mg/dL (8.4-10.2); Carbon Dioxide 29 mmol/L (22-29); Chloride 107 mmol/L (96-108); Estimated Glomerular Filt Rate > 60; Glucose Fasting 92 mg/dL (60-99); Iron 81 mcg/dL (45-160); Percent Iron Saturation 26 % (15-50); Potassium 4.2 mmol/L (3.3-5.1); Sodium 142 mmol/L (135-145); Total Iron Binding Capacity 314 mcg/dL (228-428); Unsaturated Iron Binding 233 ug/dL; Uric Acid 7.4 mg/dL (3.4-7.0)
[2024-05-29 11:26] LABS: Vitamin D 25-OH Total 26.9 ng/mL (>30)
[2024-05-29 12:35] LABS: Alkaline Phosphatase 76 U/L (39-117)
== END 2024-05-29 10:22 | disposition home or self-care (01) ==
LOC: HO.LAB 10:21
PROVIDERS: PCP Physician Assistant; Visit Provider Physician Assistant
DX: I10 Essential (primary) hypertension (principal); D50.9 Iron deficiency anemia, unspecified; D64.9 Anemia, unspecified; E55.9 Vitamin D deficiency, unspecified; E79.0 Hyperuricemia without signs of inflammatory arthritis and tophaceous disease
CPT/HCPCS: 36415; 80053; 82043; 82306; 82570; 83540; 84550; 85027

== ENCOUNTER 2024-08-09 13:15 | Outpatient (REF) | payer OTHER, SELFPAY ==
--- NOTE | ~2024-08-09 | XR_ITS ---
EXAMINATION: X-ray lumbar spine. CLINICAL INFORMATION: Radiculopathy, lumbar region. TECHNIQUE: AP and lateral views. Lateral views during flexion and extension position.. COMPARISON: September 15, 2023. FINDINGS: There is a 20% volume loss/wedge-shaped compression deformities throughout the visualized vertebral bodies and the axial skeleton with small multilevel Schmorl nodes. There is endplate sclerosis decreased intervertebral disc height and small marginal osteophyte formation at L5-S1. No acute cortical disruption or malalignment. No gross malalignment during flexion and or extension position. No lytic or blastic lesions. XR/XR lumbar spine 4V min IMPRESSION: Multilevel thoracolumbar spondylosis, pronounced at L5-S1, without acute fracture or listhesis or gross instability. Electronically signed by: Bradly Quick MD 08/09/2024 03:48 PM EDT
== END 2024-08-09 13:16 | disposition home or self-care (01) ==
LOC: HO.HOSX 13:15
PROVIDERS: PCP Physician Assistant; Visit Provider Physician Assistant
DX: M54.16 Radiculopathy, lumbar region (principal)
CPT/HCPCS: 72110

== ENCOUNTER 2024-08-09 13:15 | Outpatient (AMB) | payer OTHER, SELFPAY ==
--- NOTE | 2024-08-09 13:21 | A.SPINEOV_ITS ---
Intake Visit Reasons: recurring back pain after surgery Intake Note: Mr. Artem Dunlap is here today c/o recurring back pain after surgery. Machine Captain Required: No Allergies No Known Allergies Allergy (Verified 08/09/24 13:25) Assessment & Plan Assessment & Plan (1) Lumbar radiculopathy: Code(s): M54.16 - Radiculopathy, lumbar region Category: Medical (2) Degeneration of intervertebral disc of lumbar region with axial back pain without leg pain: Code(s): M51.360 - Other intervertebral disc degeneration, lumbar region with discogenic back pain only Category: Medical Plan Chilo is a pleasant 43-year-old male who comes in today for follow-up after having Left L5-S1 microdiskectomy completed by Dr. Morales on 11/27/23. To recap he was last evaluated in clinic for continued pins and needles / occasional pain in his left leg and low back. He was sent for a course of physical therapy. He completed physical therapy, and reports resolution of his left leg pain. Unfortunately he continues to have low back pain despite attempted conservative treatments. When describing the pain he runs his hands across the small of his low back in an axial fashion. He has been utilizing OTC tylenol and prescribed Tramadol to help mitigate the pain. He cannot tolerate NSAIDs due to stomach issues. He has been attempting at home walking and stretching as well, but all of these attempting conservative measures do not seem to be helping his low back pain. He recently had a repeat Lumbar MRI ordered by my attending Dr. Morales, but this was unfortunately denied by his insurance company for unknown reasons. On examination the patient has 5/5 strength in his upper and lower extremities. He ambulates well and rises from a seated position without much difficulty. He does not use any assistive devices to ambulate. He has no significant sensational deficits on examination today. (-) bilateral straight leg raise. (-) Bolton's. (-) clonus. I would like the patient to obtain a set of dynamic lumbar spine x-rays to evaluate for any osseous abnormality/listhesis that may be contributing to his symptoms. Assuming that this is without significant findings, I will be placing a new order for a lumbar spine MRI with gadolinium to evaluate for any continued nerve impingement or vertebral body issue. Trevor Morales MD,PhD [facility] Orders: Orders XR lumbar spine 4V min Today M54.16 - Radiculopathy, lumbar region MR lumbar spine wo/w con Today M51.360 - Other intervertebral disc degeneration, lumbar region with discogenic back pain only Coding Level of Care Code Est Pt Level 2 (88912) Diagnoses Lumbar radiculopathy M54.16 Degeneration of intervertebral disc of lumbar region with axial back pain without leg pain M51.360
--- OUTSIDE RECORDS SUMMARY | 2024-08-09 13:43 | XMS_ITS | Patient Health Record ---
Author Organization [facility] Address [address] [place] [address] Care Team Providers Care Production Clerk Name Role Phone Roya (RETIRED) Joseph CESPEDES Primary Care Provide r Unavailable Alejandro Garcia Unavailable [phone] Reason For Referral No Information Medications Medication SIG (Take, Route, Frequency, Duration) Notes Start Date End Date Status Ferrous Gluconate Ac tive Ranitidine & Diet Manage Prod 150 MG Orally Active clonazePAM 0.5 MG 1 tablet Orally prn-rare Active Omeprazole 20 MG TAKE ONE CAPSULE BY MOUTH EVERY DAY Oral for 60 Active Problems Problem Type SNOMED Code ICD Code Onset Dates Problem Status W/U Status Risk Notes Problem Epigastric pain (63251143) Abdominal pain, epigastric (789.06) Active confirmed Problem Family History of Cancer of Colon (Situation) (295022680) Family history of colon cancer (V16.0) Active confirmed Problem Colon cancer screening (031137231) Colon cancer screening (V76.51) Active confirmed Problem Gastroesophageal reflux disease (325371639) GERD (gastroesophag eal reflux disease) (530.81) Active confirmed Plan Of Treatment Future Test Test Name Order Date UPPER GI ENDOSCOPY 02/16/2014 COLONOSCOPY 02/16/2014 Insurance Providers Payer Name Payer Address Payer Phone Subscriber Number Group Number Insured Name Patient Relationship to Insured Coverage Start Date Coverage End Date [facility] needs referral [id number] [facility] [place] [place] [address] [id number] ADDIS LAGUNAS Self - patient is the insured Medical (General) History Medical History History ICD Code Denies MT,DM,CVA,Lung disease,renal dise ase Anemia--probably due to bloo d donations--low ferritin and low MCV-sees Dr. Cross and was started on iron supplements--he had a normal hemoglobin electrophoresis Normal EGD in [address] Costa and n nolanmal upper GI series in 1998 EGD in April of 2014 with th e finding of a minimal hiatal hernia, hyperplastic gastric polyps, and normal duodenal biopsies--there was no esophagitis nor Lozano's esophagus normal abdominal ultrasound in February normal colonoscopy in April of 2014 other than some minimal internal hemorrhoids Surgical History Surgery Date(Month/Year) KIDNEY STONE--cystoscopy/stent BACK SURGERY
== END 2024-08-09 14:32 | disposition home or self-care (01) ==
LOC: HO.HNS 13:16
PROVIDERS: PCP Physician Assistant; Visit Provider Physician Assistant
DX: M54.16 Radiculopathy, lumbar region (principal); M51.360 Other intervertebral disc degeneration, lumbar region with discogenic back pain only
CPT/HCPCS: 99212

== ENCOUNTER → 2024-08-09 13:48 | Outpatient (BNV) | payer OTHER, SELFPAY | PROVIDERS: PCP Physician Assistant; Visit Provider Radiology Diagnostic Radiology | DX: M47.27 Other spondylosis with radiculopathy, lumbosacral region (principal) | CPT/HCPCS: 72110 ==

== ENCOUNTER 2024-08-12 13:33 | Outpatient (REF) | payer OTHER, SELFPAY ==
--- NOTE | ~2024-08-12 | MR_ITS ---
EXAMINATION: MR LUMBAR SPINE WITHOUT AND WITH CONTRAST CLINICAL INFORMATION: Other intervertebral disc degeneration, lumbar region. COMPARISON: April 21, 2023. TECHNIQUE: MRI of the lumbar spine was obtained using routine sequences with and without contrast. Intravenous contrast: (Gadavist) 8.5 mL. No reported immediate complications. FINDINGS: Last rib-bearing vertebra labeled T12. No bone marrow STIR signal abnormality. Multilevel disc desiccation and marginal osteophyte formation. Grade 1 retrolisthesis L4-5 and L5-S1. There is a subtle STIR signal with heterogeneous enhancement in the posterior left midline prevertebral compartment at L5 and surrounded the posterior spinous processes and to a lesser extent the left lateral epidural/subdural compartment of the central spinal canal. Right hemilaminectomy L4-5. Left hemilaminectomy L5-S1. No abnormal enhancement within the leptomeningeal compartment/neural elements of the thecal sac. No grouping or clumping. Conus medullaris ends at pedicle of L1 with normal signal. T12-L1: Facet joint and ligamentum flavum hypertrophy. Mild broad-based disc bulging. No compression upon neural elements. L1-2: Broad-based disc bulging. Facet joint and ligamentum flavum hypertrophy. No compression upon elements. L2-3: Broad-based disc bulging. Facet joint and ligamentum flavum hypertrophy. No compression upon neural elements. L3-4: Broad-based disc bulging. Facet joint and ligamentum flavum hypertrophy. Reduced AP diameter of the thecal sac and neuroforamina likely encroaching the L3 and L4 nerve roots. L4-5: Right hemilaminectomy. Resected the right ligamentum flavum. Broad-based disc bulging. Left facet joint hypertrophy and hypertrophy of the left ligamentum flavum resulting in reduced AP diameter of the thecal sac and neuroforamina likely encroaching the left L5 nerve root on its lateral recess and possibly the L4 nerve roots. L5-S1: Left hemilaminectomy. Partial resection of the left ligamentum flavum. Broad-based disc bulging. Facet joint hypertrophy. Reduced AP diameter of the thecal sac and bilateral neuroforamina stenosis likely encroaching the neural elements. MR/MR lumbar spine wo/w con IMPRESSION: Consider granulation tissue extending at the surgical site on the left hemilaminectomy at L5-S1 and right hemilaminectomy at L4-5. Multilevel spondylosis, L3-4 to L5-S1 resulting in encroachment of the neural elements of the thecal sac and the exiting nerve roots at L4-5 and L5-S1 and to a lesser extent L3-4. No arachnoiditis based upon imaging. Electronically signed by: Bradly Quick MD 08/12/2024 02:59 PM EDT
--- OUTSIDE RECORDS SUMMARY | 2024-08-12 13:41 | XMS_ITS | Patient Health Record ---
Author Organization [facility] Address [address] [place] [address] Care Team Providers Care Electronic Assembler Group Leader Name Role Phone Roya (RETIRED) Joseph CESPEDES Primary Care Provide r Unavailable Alejandro Garcia Unavailable [phone] Reason For Referral No Information Medications Medication [...] W/U Status Risk Notes Problem Epigastric pain (60165730) Abdominal pain, epigastric (789.06) Active confirmed Problem Family History of Cancer of Colon (Situation) (592334185) Family history of colon cancer (V16.0) Active confirmed Problem Colon cancer screening (125127583) Colon cancer screening (V76.51) Active confirmed Problem Gastroesophageal reflux disease (008185786) GERD (gastroesophag eal reflux disease) (530.81) Active confirmed Plan Of Treatment Future Test Test Name Order Date UPPER GI ENDOSCOPY 02/16/2014 COLONOSCOPY 02/16/2014 Insurance Providers Payer Name Payer Address Payer Phone Subscriber Number Group Number Insured Name Patient Relationship to Insured Coverage Start Date Coverage End Date [facility] needs referral [id number] [facility] [place] [address] [id number] ADDIS LAGUNAS Self - patient is the insured Medical (General) History Medical History History ICD Code Denies RI,DM,CVA,Lung disease,renal dise ase Anemia--probably due to bloo [...]
== END 2024-08-12 13:34 | disposition home or self-care (01) ==
LOC: HO.MRI 13:33
PROVIDERS: PCP Physician Assistant; Visit Provider Neurological Surgery
DX: M51.360 Other intervertebral disc degeneration, lumbar region with discogenic back pain only (principal)
CPT/HCPCS: 72158; A9585

== ENCOUNTER → 2024-08-12 13:50 | Outpatient (BNV) | payer OTHER, SELFPAY | PROVIDERS: PCP Physician Assistant; Visit Provider Radiology Diagnostic Radiology | DX: M47.817 Spondylosis without myelopathy or radiculopathy, lumbosacral region (principal) | CPT/HCPCS: 72158 ==

== ENCOUNTER 2024-08-18 08:45 | Outpatient (AMB) | payer OTHER, SELFPAY ==
--- OUTSIDE RECORDS SUMMARY | 2024-08-18 08:59 | XMS_ITS | Patient Health Record ---
Author Organization [facility] Address [address] [place] [address] Care Team Providers Care Yeast Fermentation Attendant Name Role Phone Roya (RETIRED) Joseph CESPEDES Primary Care Provide r Unavailable Alejandro Garcia Unavailable [phone] Reason For Referral No Information Medications Medication [...] W/U Status Risk Notes Problem Epigastric pain (63545205) Abdominal pain, epigastric (789.06) Active confirmed Problem Family History of Cancer of Colon (Situation) (454200588) Family history of colon cancer (V16.0) Active confirmed Problem Colon cancer screening (199891282) Colon cancer screening (V76.51) Active confirmed Problem Gastroesophageal reflux disease (697653562) GERD (gastroesophag eal reflux disease) (530.81) Active confirmed Plan Of Treatment Future Test Test Name Order Date UPPER GI ENDOSCOPY 02/16/2014 COLONOSCOPY 02/16/2014 Insurance Providers Payer Name Payer Address Payer Phone Subscriber Number Group Number Insured Name Patient Relationship to Insured Coverage Start Date Coverage End Date [facility] needs referral [id number] [facility] [place] [address] [id number] ADDIS LAGUNAS Self - patient is the insured Medical (General) History Medical History History ICD Code Denies [place],DM,CVA,Lung disease,renal dise ase Anemia--probably due to bloo [...]
[2024-08-18 09:22] VITALS: BP 138/92; PULSE 70; O2SAT 98; BMI 27.3
--- NOTE | 2024-08-18 09:22 | A.OFFPC_ITS ---
Vital Signs 08/18/24 09:22 Height 5 ft 11 in Weight 195 lb 8 oz BMI 27.3 BP 138/92 H Blood Pressure Location Lt brachial Position Sitting Pulse 70 Pulse Source Pulse Oximeter Pulse Oximetry (%) 98 Oxygen Delivery Method Room Air Intake Visit Reasons: f/u HTN Clinical Exercise Physiologist Required: No Accompanied by: Self / Same As Patient Allergies No Known Allergies Allergy (Verified 08/18/24 09:29) Medication List - Last Reconciled 08/18/24 by Dean Willis PA-C acetaminophen ER (Tylenol Arthritis Pain) 650 mg PO Q12H 30 days cetirizine 10 mg PO DAILY 60 days cholecalciferol (vitamin D3) 50 mcg PO DAILY 90 days clonidine HCl 0.1 mg PO BEDTIME PRN 30 days cyclobenzaprine 5 mg PO Q12H PRN ginkgo biloba 40 mg PO DAILY Held on 11/27/23. Instructions: Resume on 12/04/23. lidocaine 5% 1 patch topical DAILY PRN Held on 11/27/23. Instructions: Resume on 12/04/23. losartan 25 mg PO DAILY 30 days methocarbamol 750 mg PO TID PRN multivitamin 1 tab PO DAILY naproxen 250 mg PO BID PRN 10 days olopatadine 0.2% (Pataday Once Daily Relief) 1 drp ophthalmic (eye) DAILY 4 weeks oxycodone 5 mg PO Q8H PRN prednisone 20 mg PO DAILY 4 days sennosides (senna) 8.6 mg PO BEDTIME PRN 30 days tramadol 50 mg PO Q8H PRN 5 days Tobacco use date assessed: 08/18/24 Dental Screening Dental Screen Date: 08/18/24 Did you have a dental visit in the last 12 months?: No Did you have a dental problem in the last 6 months where you did not have access to dental care?: No Was dental information given to patient?: Patient has dentist HPI f/u HTN HPI Details Patient is a 43-year-old male here today for follow-up visit. Patient has a past medical history significant for generalized anxiety disorder, nephrolithiasis. Hypertension: Patient's blood pressure in office improved though still remains high. He only uses losartan on a once a week basis. He reports his blood pressures has been better since having less stress at his home. PLAN: Continue to monitor blood pressure at home and if consistently above 140 systolic will consider using losartan more often. He reports his chest pain has essentially resolved. Also his home stress has gotten much better FERN:? Has been using Clonidine 0.1 mg on a p.r.n. basis with good effect of reducing his anxiety.? City is triggered by family issues.. He is interested in cognitive behavioral therapy again. . Lumbar disc disease: He is status post lumbar disc surgery in 2006. Has also had a recent microdiskectomy though unfortunately still has pain. Reports his pain has gotten worse over this last year though can not recall any recent acute injury. He does report last week suffering a minor fall which exacerbated his low back pain as well. Patient has seen neurosurgeon here in [place] as he has been having more lower back pain with radiculopathy requiring more pain medication to be used. In new MRI has been ordered and will be reviewed by his now her surgeon. He does use tramadol on a as needed basis which does offer him some pain relief and improvement of his activities of daily living. We had a long discussion about opiate use and risk of dependency and he does understand. He is asking for 1 script of oxycodone to use for pain scales of 9-10 as he feels this medication works a bit better for more severe pain flares. [facility] Medical History COVID-19 Arthritis Neuropathy Anemia HTN (hypertension) GERD (gastroesophageal reflux disease) Anxiety Elevated uric acid in blood Chronic lower back pain Surgical History Hx of lithotripsy Hx of circumcision Hx of hemorrhoidectomy Hx of cystoscopy History of esophagogastroduodenoscopy (EGD) H/O colonoscopy History of lumbar surgery Family History Father Colon cancer, Onset Age: 47 CAD (coronary artery disease), Onset Age: 55 Mother Ovarian cancer Sister Arthritis Social History Housing: House Are you a primary child care coordinator to a significant other at home: No Do you presently have visiting nurse or other home services: No Alcohol intake: current Alcohol intake frequency: a few times a month Alcohol type: beer Patient Tobacco Use Status: Never used Tobacco e-Cigarette/Vaping Use: Never Used Second Hand Smoke Exposure: No service: No Current occupational status: employed Current occupation: [employer]- remote from home Current occupational exposures/hazards: No Cognitive needs: No Hearing needs: No Vision needs: Yes Questionnaire Thrive Questionnaire Date Thrive assessed: 03/09/24 I am a: Patient What is your living situation today?: I have a steady place to live Within the past 12 months, did the food you bought not last and you didn't have the money to get more?: Never true Within the past 12 months, did you worry whether your food would run out before you got money to buy more?: Never true Do you have trouble paying for medicines?: No Do you have trouble getting transportation to medical appointments?: No Do you have trouble paying your heating and electricity bill?: No Do you have trouble taking care of your child, family member or friend?: No Do you have trouble with day-to-day activities such as bathing, preparing meals, shopping, managing finances, etc.?: No Are you currently unemployed and looking for a job?: No Are you interested in more education?: No Please select the resources that you would like help with: None Currently or been in a relationship where the following occur: I choose not to answer THRIVE Score: 0 FERN-7 AMB Questionnaire FERN-7 Date FERN - 7 assessed: 05/19/24 Source: Developed by Drs. Alejandro Joseph, Krystina Askew, Lopez Ellison and colleagues, with an educational jose from [employer]. Review of Systems Const Denies headache(s) Eyes Denies loss of vision ENT Denies vertigo, Denies dizziness, Denies headache(s) and Denies sore throat Card Denies chest pain, Denies leg edema and Denies lightheadedness Resp Denies cough, Denies hemoptysis and Denies wheezing GI Denies abdominal pain, Denies melena, Denies constipation, Denies diarrhea and Denies vomiting Denies dysuria, Denies urinary frequency and Denies urinary urgency Musc Reports back pain, Denies arthralgias, Denies joint swelling, Denies numbness and Denies tingling Neuro Denies Abnormal speech present, Denies behavioral changes, Denies vertigo, Denies dizziness, Denies headache(s), Denies loss of vision, Denies memory loss, Denies numbness and Denies tingling Psych Denies anxiety, Denies behavioral changes, Denies depression, Denies memory loss and Denies panic attacks Chente/Lymph Denies easy bleeding and Denies easy bruising Aller/Immun Denies wheezing Physical exam (Primary Care) Vital Signs: Last Vital Signs Pulse 70 08/18/24 09:22 BP 138/92 H 08/18/24 09:22 Pulse Ox 98 08/18/24 09:22 Oxygen Delivery Method Room Air 08/18/24 09:22 Care Plan Goal for BP management: Be more consistent with the use of losartan 25 mg Next steps: Continue monitoring blood pressure at home BMI result Body Mass Index 27.3 Tobacco/Smoking Status: Tobacco use Status Tobacco use date assessed 08/18/24 08/18/24 09:27 Patient Tobacco Use Status Never used Tobacco 08/18/24 09:27 e-Cigarette/Vaping Use Never Used 08/18/24 09:27 Thrive Assessment: Date of Thrive Assessment Date Thrive assessed 03/09/24 08/18/24 09:27 Currently or been in a relationship where the following occur: I choose not to answer Const General: healthy appearing, no acute distress, alert and awake Nutritional Appearance: well nourished Orientation/consciousness: oriented to person, oriented to place and oriented to time HENMT Ears: TM's normal bilaterally General nose exam: Normal nasal mucous membranes and turbinates present Eyes Conjunctivae: conjunctivae normal Sclerae: sclerae normal Pupils: Equal, round and reactive pupils present Neck Neck: Yes no lymphadenopathy and Yes no JVD Thyroid: Thyroid normal Carotids: no bruits Resp Effort & Inspection: normal respiratory effort and not tachypneic Auscultation: no crackles, no rales, no rhonchi and no wheezes Cardio Rate: regular rate Rhythm: regular rhythm Heart sounds: no murmurs and normal S1 and S2 GI Palpation (GI): Soft to palpation, nontender, no hepatomegaly and no splenomegaly Auscultation: normal bowel sounds Skin General skin exam: no rashes or lesions noted and dry skin Neuro General: oriented to person, oriented to place and oriented to time Cranial nerves: Yes Equal, round and reactive pupils present Speech: No Abnormal speech present Gait exam (Neuro): Normal gait present Motor exam (neuro): no tremor noted Extrem Right upper extremity: full ROM Left upper extremity: full ROM Right lower extremity: full ROM; no edema Left lower extremity: full ROM; no edema Psych Mental Status: mental status grossly normal Speech and movement: Normal speech and movement present Affect: normal affect Attitude: cooperative Thought process: Normal thought process present Coding Level of Care Code Est Pt Level 4 (86451) Diagnoses Primary hypertension I10 Hypertension type: primary hypertension FERN (generalized anxiety disorder) F41.1 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 He is only using losartan occasionally. He feels his blood pressure is better since being less stressed at home. Advised on trying to use his losartan more regularly in monitoring his blood pressure at home. Goal blood pressure to remain below 140/90. (2) FERN (generalized anxiety disorder): Code(s): F41.1 - Generalized anxiety disorder Category: Medical Plan: Chilo feels his anxiety has been better since having less stress at home. Does have clonidine available to him for as needed anxiety. (3) Lumbar disc herniation with radiculopathy: Code(s): M51.16 - Intervertebral disc disorders with radiculopathy, lumbar region Category: Medical Plan: The patient is referred to a neurosurgeon to explore surgical options for chronic back pain, as previous interventions have been insufficient. He is advised to use tramadol or oxycodone sparingly and to consider non-narcotic options like naproxen or muscle relaxant for pain management. Orders: Orders Comprehensive [place]. Panel Fast Today I10 - Essential (primary) hypertension Microalbumin, Random (w Creat) Today I10 - Essential (primary) hypertension Vitamin D 25-OH Total Today E55.9 - Vitamin D deficiency, unspecified Medications: Changed From oxycodone Partial Fill upon patient request. 5 mg PO Q8H PRN 30 tabs 0RF severe pain (scale score 7-10) M51.360 - Other intervertebral disc degeneration, lumbar region with discogenic back pain only To oxycodone To use for pain scales of 9-10 5 mg PO Q8H 12 tabs 0RF severe pain (scale score 7-10) 4 days M51.360 - Other intervertebral disc degeneration, lumbar region with discogenic back pain only Discontinued prednisone Discontinued Reason: Doctor's Order 20 mg PO DAILY 4 days 4 tabs 0RF H10.10 - Acute atopic conjunctivitis, unspecified eye
== END 2024-08-18 09:44 | disposition home or self-care (01) ==
LOC: HO.HMCH 08:46
PROVIDERS: PCP Physician Assistant; Visit Provider Physician Assistant
DX: I10 Essential (primary) hypertension (principal); F41.1 Generalized anxiety disorder; M51.16 Intervertebral disc disorders with radiculopathy, lumbar region

== ENCOUNTER 2024-12-21 07:30 | Outpatient (REF) | payer OTHER, SELFPAY ==
--- OUTSIDE RECORDS SUMMARY | 2024-12-21 07:33 | XMS_ITS | Patient Health Record ---
Author Organization [facility] Address [address] [place] [address] Care Team Providers Care Store Promoter Name Role Phone Roya (RETIRED) Joseph CESPEDES Primary Care Provide r Unavailable Alejandro Garcia Unavailable [phone] Reason For Referral No Information Medications Medication SIG (Take, Route, Frequency, Duration) Notes Start Date End Date Status Ferrous Gluconate Ac tive Ranitidine & Diet Manage Prod 150 MG Orally Active clonazePAM 0.5 MG 1 tablet Orally prn-rare Active Omeprazole 20 MG TAKE ONE CAPSULE BY MOUTH EVERY DAY Oral; Duration: 60 Active Problems Problem Type SNOMED Code ICD Code Onset Dates Problem Status W/U Status Risk Notes Problem Epigastric pain (39765264) Abdominal pain, epigastric (789.06) Active confirmed Problem Family History of Cancer of Colon (Situation) (570580408) Family history of colon cancer (V16.0) Active confirmed Problem Colon cancer screening (513589409) Colon cancer screening (V76.51) Active confirmed Problem Gastroesophageal reflux disease (499477945) GERD (gastroesophag eal reflux disease) (530.81) Active confirmed Plan Of Treatment Future Test Test Name Order Date UPPER GI ENDOSCOPY 02/16/2014 COLONOSCOPY 02/16/2014 Insurance Providers Payer Name Payer Address Payer Phone Subscriber Number Group Number Insured Name Patient Relationship to Insured Coverage Start Date Coverage End Date [facility] needs referral [id number] [place] [id number] ADDIS LAGUNAS Self - patient is the insured Medical (General) History Medical History History ICD Code Denies [place],DM,CVA,Lung disease,renal dise ase Anemia--probably due to bloo d donations--low ferritin and low MCV-sees Dr. Cross and was started on iron supplements--he had a normal hemoglobin electrophoresis Normal EGD in [address] Costa and n leonel upper GI series in 1998 EGD in [...]
--- OUTSIDE RECORDS SUMMARY | 2024-12-21 07:33 | XMS_ITS | Clinical Summary ---
Author Organization [address] Address [address] [place] [address] Phone Care Team Providers Care Service Unit Operator Name Role Phone Dean Willis Primary Care Provider Social History Tobacco Use Types Packs/Day Years Used Date Smoking Tobacco: Never Assessed Sex and Gender Information Value Date Recorded Sex Assigned at Not on file Legal Sex Male 6:27 PM EDT Gender Identity Not on file Sexual Orientation Not on file Plan of Treatment Health Maintenance Due Date Last Done Comments DTaP,Tdap,and Td Vaccines (1 - Tdap) 12/24/1998 Hepatitis B Vaccines (1 of 3 - 19+ 3-dose series) 12/24/1998 HPV Vaccines (1 - 3-dose SCD M series) 12/24/2006 Depression Screening 02/11/2024 Cholesterol Screening (Lipid Panel) 09/08/2024 HIV Screening 09/08/2024 Hepatitis C Screening 09/08/2024 Social Influencers of Health Screening 09/08/2024 COVID-19 Vaccine ( - 2023-2 5 season) 2024 Influenza Vaccine (#1) 2024 RSV Immunization Adult Patie nts (1 - 1-dose 75+ series) 12/24/2054 HIB Vaccines Aged Out No longer eligi ble based on patient's age to complete this topic Hepatitis A Vaccines Aged Out No long er eligible based on patient's age to complete this topic IPV Vaccines Aged Out No longer eligi ble based on patient's age to complete this topic MMR Vaccines Aged Out No longer eligi ble based on patient's age to complete this topic Meningococcal ACWY Vaccine Aged Out N o longer eligible based on patient's age to complete this topic Meningococcal B Vaccine Aged Out No l onger eligible based on patient's age to complete this topic Pneumococcal Vaccine: Pediat rics (0 to 5 Years) and At-Risk Patients (6 to 49 Years) Aged Out No longer eligible b ased on patient's age to complete this topic RSV Immunization Patients Un radha 20 months Aged Out No longer eligible b ased on patient's age to complete this topic Varicella Vaccines Aged Out No longer eligible based on patient's age to complete this topic Insurance [employer] [facility] Teams Service Unit Operator Relationship Specialty Start Date End Date Dean Willis PA [address] [place] [phone] PCP - General Physician Correctional Officer Sergeant 09/07/24
--- OUTSIDE RECORDS SUMMARY | 2024-12-21 07:33 | XMS_ITS | Encounter Summary ---
Author Organization [facility] Address [address] [place] [address] Care Team Providers Care Spear Fisher Name Role Phone Dean Willis Primary Care Provider [phone] Encounter Details Date Type Department Care Team (Late st Contact Info) Description 09/07/2024 Lab Requisition [facility] - Main Lab [address] [facility] [place] [address] Eric Gautam PA [address] [facility] [address] [place] [address] Urinary tract infection, site not specified; Testicular pain, unspecified Social History Tobacco Use Types Packs/Day Years Used Date Smoking Tobacco: Never Assessed Sex and Gender Information Value Date Recorded Sex Assigned at Not on file Legal Sex Male 6:27 PM EDT Gender Identity Not on file Sexual Orientation Not on file documented as of this encounter Plan of Treatment Not on file documented as of this encounter Procedures Procedure Name Priority Date/Time Associated Diagnosis Comments CULTURE URINE Routine 09/07/2024 6:31 PM EDT Urinary tract infection, site not specified Testicular pain, unspecified documented in this encounter Results * Culture urine (09/07/2024 6:31 PM EDT) Culture, Urine No growth 09/08/2024 1:36 PM EDT [facility] Urine Urine specimen obtained by clean catch procedure / Unknown Non-blood Collection / Unknown 09/07/2024 6:31 PM EDT 09/07/2024 6:31 PM EDT [facility] MICROBIOLOGY - GE NERAL ORDERABLES Final Result [facility] [address] [place] [address], documented in this encounter Visit Diagnoses Diagnosis Urinary tract infection, site not specified Testicular pain, unspecified documented in this encounter Care Teams Spear Fisher Relationship Specialty Start Date End Date Dean Willis PA [address] [place] [address] PCP - General Physician Terrazzo Layer Helper 09/07/24 documented as of this encounter
[2024-12-21 08:42] LABS: Hematocrit 42.1 % (42.0-52.0); Hemoglobin 13.4 g/dl (14.0-18.0); Mean Corpuscular HGB Conc 31.8 g/dl (31.0-36.0); Mean Corpuscular Hemoglobin 23.9 pg (27.0-33.0); Mean Corpuscular Volume 75.2 fL (80.0-98.0); NRBC Abs Auto 0.000 X10*3/uL (0.0-0.012); NRBC Pct Auto 0.0 /100WBC (0.0-0.2); Platelet Count 318 X10*3/uL (160-400); Red Blood Count 5.60 X10*6/uL (4.60-5.80); White Blood Count 6.6 X10*3/uL (4.8-10.8)
[2024-12-21 09:34] LABS: Alanine Aminotransferase 36 U/L (0-40); Albumin Level 4.5 g/dL (3.5-5.0); Alkaline Phosphatase 74 U/L (39-117); Anion Gap 13 (12-20); Aspartate Amino Transferase 27 U/L (5-37); Blood Urea Nitrogen 13 mg/dL (9-16); Calcium 9.3 mg/dL (8.4-10.2); Carbon Dioxide 28 mmol/L (22-29); Chloride 105 mmol/L (96-108); Estimated Glomerular Filt Rate > 60; Iron 66 mcg/dL (45-160); Percent Iron Saturation 22 % (15-50); Potassium 4.0 mmol/L (3.3-5.1); Sodium 142 mmol/L (135-145); Total Iron Binding Capacity 297 mcg/dL (228-428); Total Protein 6.9 g/dL (6.5-8.0); Unsaturated Iron Binding 231 ug/dL
[2024-12-26 09:23] LABS: Metanephrine, Free 36 pg/mL (<=57); Normetanephrines, Free 68 pg/mL (<=148); Total Metanephrine, Free 104 pg/mL (<=205)
[2024-12-26 11:08] LABS: Testosterone, Free 57.0 pg/mL (35.0-155.0)
== END 2024-12-21 07:31 | disposition home or self-care (01) ==
LOC: HO.LAB 07:30
PROVIDERS: PCP Physician Assistant; Visit Provider Physician Assistant
DX: I10 Essential (primary) hypertension (principal); D50.9 Iron deficiency anemia, unspecified; R23.2 Flushing; E55.9 Vitamin D deficiency, unspecified
CPT/HCPCS: 36415; 80053; 82043; 82306; 82570; 82672; 83540; 83835; 84146; 84402; 84403; 84443; 85027

== ENCOUNTER 2025-01-14 14:56 | Outpatient (AMB) | payer OTHER, SELFPAY ==
--- NOTE | 2025-01-14 14:59 | MHC.OFFVIS ---
Vital Signs 01/14/25 15:00 Height 5 ft 11 in Weight 194 lb BMI 27.1 BP 165/97 H Blood Pressure Location Rt brachial Position Sitting Respiration 16 Pulse 72 Pulse Source Pulse Oximeter Pulse Oximetry (%) 100 Oxygen Delivery Method Room Air Intake Visit Reasons: Low Back Pain Optical Dispenser Required: No Accompanied by: Life Partner Allergies No Known Allergies Allergy (Verified 01/14/25 15:00) HPI Comments Details: The patient is a 44 year old male presenting for follow-up management of his chronic lower back pain and to discuss proceeding with a spinal cord stimulator trial. He previously underwent a surgery that successfully resolved his leg pain, but his lower back pain persists. He reports having an MRI in the summer, and was told by a surgeon that he might be a candidate for fusion surgery or a spinal cord stimulator in the future. The patient was initially hesitant about the stimulator due to fear but is now reconsidering it as his pain significantly limits his activities and travel. He uses tramadol for pain but notes he has barely taken any in the past few days. - Location: The patient reports persistent pain in his lower back. - Interferes with Activities: The pain is very limiting, impacting his ability to travel. - Exacerbating Factors: Pain is worse with activity and driving. - Resolved Pain: He notes that previous pain in his leg has improved following surgery. - Affect: The patient expresses a desire to feel better and is motivated to try the spinal cord stimulator to improve his quality of life. - Analgesia: He uses tramadol for pain management but has not taken it in the last few days. - Activities of Daily Living: His pain is very limiting, particularly with travel. - Aberrant Drug-Related Behaviors: The patient reports he barely takes any pain medication and is not dependent on it. [facility] Medical History COVID-19 Arthritis Neuropathy Anemia HTN (hypertension) GERD (gastroesophageal reflux disease) Anxiety Elevated uric acid in blood Chronic lower back pain Surgical History Hx of lithotripsy Hx of circumcision Hx of hemorrhoidectomy Hx of cystoscopy History of esophagogastroduodenoscopy (EGD) H/O colonoscopy History of lumbar surgery Family History Father Colon cancer, Onset Age: 47 CAD (coronary artery disease), Onset Age: 55 Mother Ovarian cancer Sister Arthritis Social History Housing: House Are you a primary landcare officer to a significant other at home: No Do you presently have visiting nurse or other home services: No Alcohol intake: current Alcohol intake frequency: a few times a month Alcohol type: beer Patient Tobacco Use Status: Never used Tobacco e-Cigarette/Vaping Use: Never Used Second Hand Smoke Exposure: No service: No Current occupational status: employed Current occupation: [employer] - [place]- remote from home Current occupational exposures/hazards: No Cognitive needs: No Hearing needs: No Vision needs: Yes Review of Systems Narrative - Musculoskeletal: Reports chronic lower back pain. Physical Exam Exam Exam: General: awake, alert, oriented. Answers questions appropriately. Fully engaged in examination. Skin: warm, dry, intact HEENT: Normocephalic. Hearing intact. Cardiac: External chest normal in appearance. Respiratory: No cough, audible wheezing or stridor. Abdomen: without gross distension. MS: No obvious swelling or deformities. Able to transition from sit to stand unassisted. Ambulates with bilaterally normal heel strike and toe off Neurological: Oriented to person, place, time and situation. Thought process intact. No gait abnormalities appreciated. Psychiatric: Appropriate mood and affect. Good judgment and insight. Vital Signs: Last Vital Signs Pulse 72 01/14/25 15:00 Resp 16 01/14/25 15:00 BP 165/97 H 01/14/25 15:00 Pulse Ox 100 01/14/25 15:00 Oxygen Delivery Method Room Air 01/14/25 15:00 BMI result Body Mass Index 27.1 Results Reviewed Results Reviewed: 08/12/24 MRI LS FINDINGS: Last rib-bearing vertebra labeled T12. No bone marrow STIR signal abnormality. Multilevel disc desiccation and marginal osteophyte formation. Grade 1 retrolisthesis L4-5 and L5-S1. There is a subtle STIR signal with heterogeneous enhancement in the posterior left midline prevertebral compartment at L5 and surrounded the posterior spinous processes and to a lesser extent the left lateral epidural/subdural compartment of the central spinal canal. Right hemilaminectomy L4-5. Left hemilaminectomy L5-S1. No abnormal enhancement within the leptomeningeal compartment/neural elements of the thecal sac. No grouping or clumping. Conus medullaris ends at pedicle of L1 with normal signal. T12-L1: Facet joint and ligamentum flavum hypertrophy. Mild broad-based disc bulging. No compression upon neural elements. L1-2: Broad-based disc bulging. Facet joint and ligamentum flavum hypertrophy. No compression upon elements. L2-3: Broad-based disc bulging. Facet joint and ligamentum flavum hypertrophy. No compression upon neural elements. L3-4: Broad-based disc bulging. Facet joint and ligamentum flavum hypertrophy. Reduced AP diameter of the thecal sac and neuroforamina likely encroaching the L3 and L4 nerve roots. L4-5: Right hemilaminectomy. Resected the right ligamentum flavum. Broad-based disc bulging. Left facet joint hypertrophy and hypertrophy of the left ligamentum flavum resulting in reduced AP diameter of the thecal sac and neuroforamina likely encroaching the left L5 nerve root on its lateral recess and possibly the L4 nerve roots. L5-S1: Left hemilaminectomy. Partial resection of the left ligamentum flavum. Broad-based disc bulging. Facet joint hypertrophy. Reduced AP diameter of the thecal sac and bilateral neuroforamina stenosis likely encroaching the neural elements. IMPRESSION: Consider granulation tissue extending at the surgical site on the left hemilaminectomy at L5-S1 and right hemilaminectomy at L4-5. Multilevel spondylosis, L3-4 to L5-S1 resulting in encroachment of the neural elements of the thecal sac and the exiting nerve roots at L4-5 and L5-S1 and to a lesser extent L3-4. No arachnoiditis based upon imaging. 04/24/2023 EMG Right tibial and peroneal motor studies were performed. Right superficial peroneal, sural, median, and lateral plantar studies were performed. Tibial H-reflex was obtained, and paraspinal muscles were tested with a needle. 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 04/21/2023 MR/MR lumbar spine wo con FINDINGS: Coronal Alignment: Normal. Sagittal Alignment: There is lordotic loss with trace lordotic reversal centered at L2-L3 and mild degrees of retrolisthesis at L4-L5 and L5-S1. Lumbosacral Junction: Normal. There are 5 [id number] lumbar-type vertebral bodies. Vertebral Bodies: There is slight chronic anterior wedging of the L1, L2, L3 and L4 vertebral bodies. No acute or nonhealed fractures are seen. The findings are more consistent with chronic remodeling of the vertebral bodies. Disc Spaces and Endplates: Severe disc space height loss at L5-S1 is noted with intradiscal degenerative signal changes, Schmorl's nodes and spondylosis. Moderate disc volume loss also noted at L4-L5 with central Schmorl's nodes, disc desiccation and minor spondylosis. Central Schmorl's nodes are also noted at the levels between L3-L4 and T11-T12 inclusive and there is disc desiccation at T11-T12. Spinal Canal: No abnormal developmental findings. Bone Marrow: No suspicious marrow-replacing process or bone marrow edema. There are type I degenerative marrow signal changes along the endplates at L5-S1. Conus Medullaris: Terminates at T12-L1. Morphology and signal is normal. Intradural Nerve Roots: Within normal limits. L5-S1: Mild retrolisthesis is noted with concentric disc bulging and a superimposed small caudally migrated extrusion in the left subarticular zone encroaching on the left S1 nerve root. Slight flattening of the ventral thecal sac is also noted with crowding of the subarticular zones bilaterally with disc herniation extending into the left lateral recess. There is mild facet arthropathy without significant central canal stenosis. There is moderate bilateral neural foraminal stenosis with disc osteophyte complex slightly encroaching on the exiting right L5 nerve root. L4-L5: There is concentric disc bulging with evidence of a previous right-sided hemilaminectomy with chronic postoperative changes. There is ligamentum flavum thickening on the left and there is minor facet arthropathy without central canal stenosis. There is asymmetric narrowing of the left subarticular zone mildly encroaching on the traversing left L5 nerve root. The right subarticular zone appears decompressed. No significant neural foraminal stenosis. L3-L4: Minor annular bulging without significant facet arthrosis, canal or foraminal stenosis. L2-L3: Normal annular contour. No facet arthrosis, canal or foraminal stenosis. L1-L2: Normal annular contour. No facet arthrosis, canal or foraminal stenosis. T12-L1:Normal annular contour. No facet arthrosis, canal or foraminal stenosis. Paravertebral and Included Extraspinal Soft Tissues: The visualized paravertebral soft tissues and included retroperitoneal structures are unremarkable within the limitations of the exam. IMPRESSION: 1. Discogenic degenerative changes primarily at L4-L5 and L5-S1 with mild degrees of retrolisthesis at these levels. 2. Disc bulging and left subarticular disc herniation at L5-S1 with encroachment on the traversing left S1 nerve root. Moderate bilateral neural foraminal stenosis at this level with disc osteophyte complex encroaching on the exiting right L5 nerve root. 3. Postoperative changes on the right at L4-L5 with disc bulging and left-sided ligamentum flavum thickening with moderate narrowing of the left subarticular zone encroaching on the traversing left L5 nerve root. 4. Mild chronic anterior wedging of the L1, L2, L3 and L4 vertebral bodies without acute or nonhealed fractures associated with mild lordotic reversal centered at L2-L3. Assessment & Plan Assessment & Plan (1) Lumbar radiculopathy: Code(s): M54.16 - Radiculopathy, lumbar region Category: Medical (2) Neuropathy: Code(s): G62.9 - Polyneuropathy, unspecified Category: Medical (3) Post laminectomy syndrome: Comment: partial discectomy 2006 Code(s): M96.1 - Postlaminectomy syndrome, not elsewhere classified Category: Medical (4) Lumbar facet arthropathy: Code(s): M47.816 - Spondylosis without myelopathy or radiculopathy, lumbar region Category: Medical Plan We will proceed with a spinal cord stimulator (SCS) trial for the patient's chronic lower back pain. The process will begin with a one-week trial period, during which temporary wires are placed in the mid-back and connected to an external device. If he experiences good pain relief, we will then submit for insurance approval for a permanent implant. As a prerequisite for the SCS trial, the patient must undergo a mental health clearance, which is an insurance requirement. He was provided with the necessary contact information to schedule this evaluation, and he will notify us upon its completion so we can obtain the report and proceed with the insurance submission. He was advised that running is detrimental for his back and knees and that walking provides more health benefits with less impact. He can continue with tramadol prescribed by pcp for pain on an as-needed basis, though it is understood this is not a long-term solution. Schedule for fluoroscopy guided SCS trial under sedation with [facility] Informational pamphlet was given to patient for review. Patient was informed and verbally consented to the use of an ambient scribe for clinic note documentation during this visit. Patient Instructions: - You will be given information to schedule a mental health clearance. - Please complete this evaluation, as it is required by your insurance before we can proceed with the spinal cord stimulator trial. - Call our office once the evaluation is done so we can obtain the report and request insurance authorization. - If the spinal cord stimulator trial is approved and successful, you will then be scheduled for a procedure to have a permanent device implanted. - Avoid running, as it is hard on your back and knees. - Walking is a better and safer form of exercise for you. Coding Level of Care Code Est Pt Level 3 (70394) Complex visit Add On G2211 Diagnoses Lumbar radiculopathy M54.16 Neuropathy G62.9 Post laminectomy syndrome M96.1 Lumbar facet arthropathy M47.816
[2025-01-14 15:00] VITALS: BP 165/97; PULSE 72; RESP 16; O2SAT 100; BMI 27.1
--- OUTSIDE RECORDS SUMMARY | 2025-01-14 19:00 | XMS_ITS | Encounter Summary ---
Author Organization [facility] Address [address] [place] [address] Care Team Providers Care Naval Inspector Name Role Phone Dean Willis Primary Care Provider Encounter Details Date Type Department Care Team (Late st Contact Info) Description 09/07/2024 Lab Requisition [facility] - Main Lab [address] [facility] [place] [address] Eric Gautam PA [address] [facility] [address] [place] [address] Urinary tract infection, site not [...] 09/08/2024 1:36 PM EDT [facility] Urine Urine specimen obtained by clean catch procedure / Unknown Non-blood Collection / Unknown 09/07/2024 6:31 PM EDT 09/07/2024 6:31 PM EDT Eric [facility] MICROBIOLOGY - GE NERAL ORDERABLES Final Result [facility] ([facility] [address] [place] [address], documented in this encounter Visit Diagnoses Diagnosis Urinary tract infection, site not specified Testicular pain, unspecified documented in this encounter Care Teams Naval Inspector Relationship Specialty Start Date End Date Dean Willis PA [address] [place] [address] PCP - General Physician Roll Forger 09/07/24 documented as of this encounter
--- OUTSIDE RECORDS SUMMARY | 2025-01-14 19:00 | XMS_ITS | Clinical Summary ---
Author Organization [address] Address [address] [place] [address] Phone Care Team Providers Care Casing Cleaner Name Role Phone Dean Willis Primary Care Provider Social History Tobacco Use Types Packs/Day Years Used Date Smoking Tobacco: Never Assessed Sex and Gender Information Value Date Recorded Sex Assigned at Not on file Legal Sex Male 6:27 PM EDT Gender Identity Not on file Sexual Orientation Not on file Plan of Treatment Health Maintenance Due Date Last Done Comments Colorectal Cancer Screening: Colonoscopy 1979 DTaP,Tdap,and Td Vaccines (1 - Tdap) 12/24/1998 Hepatitis B Vaccines (1 of 3 - 19+ 3-dose series) 12/24/1998 HPV Vaccines (1 - 3-dose SCD M series) 12/24/2006 Depression Screening 02/11/2024 Cholesterol Screening (Lipid Panel) 09/08/2024 HIV Screening 09/08/2024 Hepatitis C Screening 09/08/2024 Social Influencers of Health Screening 09/08/2024 COVID-19 Vaccine (1 - 2024-2 6 season) 2024 Influenza Vaccine (#1) 2024 RSV [...] patient's age to complete this topic Insurance [employer] Care Teams Casing Cleaner Relationship Specialty Start Date End Date Dean Willis PA [address] [place] [phone] PCP - General Physician Director Of Intelligence 09/07/24
== END 2025-01-14 16:00 | disposition home or self-care (01) ==
LOC: HO.PMC 14:57
PROVIDERS: PCP Physician Assistant; Visit Provider Registered Nurse Emergency
DX: M54.16 Radiculopathy, lumbar region (principal); G62.9 Polyneuropathy, unspecified; M96.1 Postlaminectomy syndrome, not elsewhere classified; M47.816 Spondylosis without myelopathy or radiculopathy, lumbar region
CPT/HCPCS: 99213

== ENCOUNTER 2025-01-26 16:40 | Outpatient (REF) | payer OTHER, SELFPAY ==
--- NOTE | ~2025-01-26 | XR_ITS ---
EXAMINATION: XR CALCANEUS, RIGHT CLINICAL INFORMATION: M79.671 - Pain in right foot COMPARISON: None available. TECHNIQUE: Lateral and axial views of the right calcaneus were obtained. FINDINGS: The bones and soft tissues are normal. No fracture. Alignment is anatomic. Joint spaces are maintained. No enthesopathic spurs are evident at the calcaneus. XR/XR calcaneus RT min 2V IMPRESSION: Normal right calcaneus. Electronically signed by: Jenny Garza MD 01/26/2025 04:58 PM EST
--- OUTSIDE RECORDS SUMMARY | 2025-01-26 21:04 | XMS_ITS | Patient Health Record ---
Author Organization [facility] Address [address] [place] [address] Care Team Providers Care Flat Finisher Name Role Phone Roya (RETIRED) Joseph CESPEDES Primary Care Provide r Alejandro Cat Unavailable [phone] Reason For Referral No Information Medications Medication SIG (Take, Route, Frequency, Duration) Notes Start Date End Date Status Ferrous Gluconate Ac tive Ranitidine & Diet Manage Prod 150 MG Miscellaneous Orally Ac tive clonazePAM 0.5 MG Tablet Dispersible 1 tablet Orally prn-rare Act charbel Omeprazole 20 MG Capsule Delayed Release TAKE ONE CAPSULE BY MOUTH EVERY DAY Oral; Duration: 60 Active Social History Social History Additional Details Category Social Info Options Details Miscellaneous: Marital status: 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 Section Notes: Nonsmoker; occasional alcoho l Nonsmoker; occasional alcoho l Problems Problem Type SNOMED Code ICD Code Onset Dates Problem Status W/U Status Risk Notes Problem Epigastric pain (50552660) Abdominal pain, epigastric (789.06) Active confirmed Problem Family History of Cancer of Colon (Situation) (472499617) Family history of colon cancer (V16.0) Active confirmed Problem Colon cancer screening (537955328) Colon cancer screening (V76.51) Active confirmed Problem Gastroesophageal reflux disease (047700626) GERD (gastroesophag eal reflux disease) (530.81) Active confirmed Plan Of Treatment Future Test Test Name Order Date UPPER GI ENDOSCOPY 02/16/2014 COLONOSCOPY 02/16/2014 Insurance Providers Payer Name Payer Address Payer Phone Subscriber Number Group Number Insured Name Patient Relationship to Insured Coverage Start Date Coverage End Date [facility] needs referral [id number] [place] [address] [id number] ADDIS LAGUNAS Self - patient is the insured Medical (General) History Medical History History ICD Code Denies MS,DM,CVA,Lung disease,renal dise ase Anemia--probably due to bloo d donations--low ferritin and low MCV-sees Dr. Cross and was started on iron supplements--he had a normal hemoglobin electrophoresis Normal EGD [place] [address] Costa and n ormal upper GI series in 1998 EGD in [...]
--- OUTSIDE RECORDS SUMMARY | 2025-01-26 21:04 | XMS_ITS | Clinical Summary ---
Author Organization [address] Address [address] [place] [address] Phone Care Team Providers Care Cracking And Fanning Machine Operator Name Role Phone Dean Willis Primary [...] patient's age to complete this topic Insurance [employer] Care Teams Cracking And Fanning Machine Operator Relationship Specialty Start Date End Date Dean Willis PA [address] [place] [phone] PCP - General Physician Conference Coordinator 09/07/24
--- OUTSIDE RECORDS SUMMARY | 2025-01-26 21:04 | XMS_ITS | Encounter Summary ---
Author Organization [facility] Address [address] [place] [address] Care Team Providers Care Baker Bread Name Role Phone Dean Willis Primary Care Provider Encounter Details Date Type Department Care Team (Late st Contact Info) Description 09/07/2024 Lab Requisition [facility] - Main Lab [address] [facility] [place] [address] Eric Gautam PA [address] [facility] [address] [place] [address] Urinary tract infection, site not [...] Urine No growth 09/08/2024 1:36 PM EDT [facility] Urine Urine specimen obtained by clean catch procedure / Unknown Non-blood Collection / Unknown 09/07/2024 6:31 PM EDT 09/07/2024 6:31 PM EDT Eric [facility] MICROBIOLOGY - GE NERAL ORDERABLES Final Result [facility] ([facility]) [facility] [address] [place] [address], documented in this encounter Visit Diagnoses Diagnosis Urinary tract infection, site not specified Testicular pain, unspecified documented in this encounter Care Teams Baker Bread Relationship Specialty Start Date End Date Dean Willis PA [address] [place] [address] PCP - General Physician Shank Skinner 09/07/24 documented as of this encounter
== END 2025-01-26 16:41 | disposition home or self-care (01) ==
LOC: HO.XRAY 16:40
PROVIDERS: PCP Physician Assistant; Visit Provider Physician Assistant
DX: M79.671 Pain in right foot (principal)
CPT/HCPCS: 73650

== ENCOUNTER → 2025-01-26 16:43 | Outpatient (BNV) | payer OTHER, SELFPAY | PROVIDERS: PCP Physician Assistant; Visit Provider Radiology Diagnostic Radiology | DX: M79.671 Pain in right foot (principal) | CPT/HCPCS: 73650 ==